=== PATIENT | female | born 1940 | race Caucasian/White ===

== ENCOUNTER 2019-07-26 12:40 | Emergency (ER) | payer OTHER ==
--- NOTE | 2019-07-26 12:51 | PDOC ---
History of Present Illness - General Chief Complaint: Injury Stated Complaint: BACK PAIN Time Seen by Provider: 07/26/19 12:51 History Source: Patient Exam Limitations: Other (very poor historian) - History of Present Illness Initial Comments: Pt is a 79 yo F, with PMH of HTN, HLD, anemia, IDDM, hypothyroidism, and nephrolithiasis, who is presenting with complaints of R-sided pain and frequent falls. Pt states she has been tripping over the uneven steps in her home for 3 months, and has subsequently had pain in the R side of her abdomen, her back, and down her R leg. Pt states over the past 1.5 weeks, she has had polyuria, dysuria, and constipation, and has been taking Azo pills OTC with minimal relief. Pt states she has also been non-compliant with most of her medication, including her insulin, during this time. Pt denies any fevers/chills, headache, vision changes, syncope, chest pain, palpitations, SOB, nausea/vomiting, diarrhea, numbness/weakness in her extremities, or leg swelling. BGM done by EMS was in the 400s Recent colonoscopy done in June and "everything was good," per pt. Allergies: NKDA PCP: Dr. Nash Kendrick/[facility]: Dr. Bello Social: Pt denies any cigarette, alcohol, or drug use. Pt denies any recent travel or sick contacts. Surgical: no relevant history. Family: no relevant history. 07/26/19 13:30 07/26/19 13:36 07/26/19 13:42 Past History - Travel Traveled outside of the country in the last 30 days: No Close contact w/someone who was outside of country & ill: No - Past Medical History Allergies/Adverse Reactions: Allergies Allergy/AdvReac Type Severity Reaction Status Date / Time azithromycin [From Azasite] Allergy Verified 09/04/16 11:51 Penicillins Allergy passes out Verified 09/04/16 11:51 phenylephrine Allergy Verified 09/04/16 11:51 LOTEMAX Allergy Uncoded 09/04/16 11:51 NEOSYNEPH Allergy Uncoded 09/04/16 11:51 Home Medications: Ambulatory Orders Dicyclomine HCl [Bentyl -] 20 mg PO Q6H 07/26/19 Duloxetine HCl 30 mg PO DAILY 07/26/19 Esomeprazole Magnesium 40 mg PO DAILY 07/26/19 Ezetimibe [Zetia] 10 mg PO DAILY 07/26/19 Levothyroxine [Synthroid -] 75 mcg PO DAILY 07/26/19 Linagliptin/Metformin HCl [Jentadueto 2.5 mg-1000 mg Tab] 1 each PO BID Losartan/Hydrochlorothiazide [Losartan-Hctz 100-25 mg Tab] 1 each PO DAILY 07/26 Ondansetron HCl [Zofran] 4 mg PO QID 07/26/19 Oxybutynin Chloride [Oxybutynin Chloride ER] 10 mg PO DAILY 07/26/19 Pregabalin [Lyrica] 25 mg PO DAILY 07/26/19 Anemia: Yes Asthma: No Cancer: No Cardiac Disorders: No CVA: No COPD: No CHF: No Dementia: No Diabetes: Yes GI Disorders: No Disorders: No HTN: Yes Hypercholesterolemia: Yes Liver Disease: No Seizures: No Thyroid Disease: Yes (HYPO) - Surgical History Abdominal Surgery: No Appendectomy: No Cardiac Surgery: No Cholecystectomy: No Lung Surgery: No Neurologic Surgery: No Orthopedic Surgery: Yes (TENDON OPERATION Bilateral Hands) - Suicide/Smoking/Psychosocial Hx Smoking Status: No Smoking History: Never smoked Have you smoked in the past 12 months: No Number of Cigarettes Smoked Daily: 0 Hx Alcohol Use: No Drug/Substance Use Hx: No Substance Use Type: None Hx Substance Use Treatment: No Review of Systems - Review of Systems Able to Perform ROS?: Yes Is the patient limited Bulgarian proficient: No Constitutional: Yes: Weight Stable. No: Chills, Diaphoresis, Fever, Loss of Appetite, Malaise, Weakness HEENTM: No: Blurred Vision, Recent change in vision, Nose Congestion, Throat Pain, Throat Swelling, Difficulty Swallowing Respiratory: No: Cough, Orthopnea, Shortness of Breath Cardiac (ROS): No: Chest Pain, Edema, Irregular Heart Rate, Lightheadedness, Palpitations, Syncope, Chest Tightness ABD/GI: Yes: See HPI, Constipated. No: Diarrhea, Nausea, Poor Appetite, Poor Fluid Intake, Vomiting, Indigestion : Yes: See HPI, Burning, Dysuria, Frequency. No: Discharge, Flank Pain, Hematuria, Pain, Urgency Musculoskeletal: Yes: Back Pain, Joint Pain. No: Muscle Pain, Muscle Weakness, Neck Pain Integumentary: No: Rash Neurological: Yes: Unsteady Gait. No: Headache, Numbness, Paresthesia, Weakness , Dizziness Psychiatric: No: Sleep Pattern Change, Change in Appetite Endocrine: Yes: Increased Urine. No: Change in Weight Hematologic/Lymphatic: Yes: Anemia. No: Blood Clots, Easy Bleeding, Easy Bruising All Other Systems: Reviewed and Negative *Physical Exam - Physical Exam Comments: HTN, bedside BGM 420s, pt afebrile. Pt in NAD, can lie and move in the bed. Normal body habitus. Pt alert and oriented x3. clinical team manager generally intact, muscular strength and sensation intact. Cerebellar exam WNL. Cervical midline spinal tenderness, and paraspinal TTP in thoracolumbar regions. No step-offs or crepitus. TTP over R hip and thigh, with no obvious deformity or shortening of the leg. Head normocephalic, atraumatic. Eyes PERRLA, EOMI. Oropharynx without erythema or exudates, no LAD b/l. No nasal congestion, hearing intact. Clear heart sounds, S1/S2, no JVD, b/l pedal edema, or heart murmur. Clear lung sounds, no respiratory distress, wheezes, crackles, or accessory muscle use. RUQ TTP. No CVA tenderness to palpation, no rebound, no guarding. Abdomen soft, non-distended, and with normoactive bowel sounds. Skin without jaundice or rash. 07/26/19 13:44 ED Treatment Course - LABORATORY CBC & Chemistry Diagram: 07/26/19 13:29 07/26/19 13:29 Medical Decision Making - Medical Decision Making Pt was seen at bedside, also will be seen by attending Dr. Mae. Pt presenting with a variety of complaints, recent falls and non-compliance with medications. BGM elevated to 400s. Will evaluate for DKA vs fractures from falls , other electrolyte imbalances, ACS, infection (UTI). Will obtain x-rays and CT head, C-spine. Provided 4 units IV insulin, 1 L IV NS, 1 g IV ofirmev, and lidocaine patch for improvement of hyperglycemia, dehydration, and pain. Will continue to reassess pt and monitor for symptomatic improvement. ECG: "unusual P axis, possible ectopic rhythm" (HR 67, GA 112, QRS 76, QTc 433) . TWIs/biphasic T waves V2-V6; p wave inversions in inferior leads, depressions in aVR and AVL. No prior ECG for comparison. 07/26/19 13:47 CBC WNL CMP: elevated glucose, no AG, acetone negative UA pending Ordered non-contrast abd/pelvis CT, as LFTs not elevated to suggest need for RUQ US 07/26/19 14:29 UA negative for infection Pt taken for imaging. 07/26/19 15:24 CT head and C-spine without acute pathology CT abd/pelvis: IMPRESSION: 1. Bilateral renal cysts with no evidence of urinary tract calculi or obstructive uropathy. 2. No acute pathology within the abdomen or pelvis. Limited study as described above. 07/26/19 16:37 X-rays with no acute pathology. BGM improved to 200s. Pt to be discharged to home with PCP f/u. Instructed pt to continue taking her medications. Strict return precautions provided with pt understanding. 07/26/19 17:29 *DC/Admit/Observation/Transfer Diagnosis at time of Disposition: Frequent falls, Non-compliance, Diabetes mellitus, insulin dependent (IDDM), uncontrolled - Discharge Dispostion Disposition: HOME Condition at time of disposition: Improved Decision to Admit order: No - Referrals Referrals: Nash Kendrick MD [Staff Physician] - - Patient Instructions Printed Discharge Instructions: How to Prevent Falls, DI for Hyperglycemia -- Adult Additional Instructions: You were seen in the ER today for falls and your blood sugar being too high. The results of your labs and imaging today showed high blood sugar, but your x- rays and CT scans were normal. Please follow-up with your primary care doctor within 1-2 days to discuss your visit and make sure your symptoms have improved. It is very important that you continue to take your home medications as prescribed. Please return to the ER if you have any worsening pain, development of fevers or chills, loss of consciousness, inability to tolerate food or fluids, or any other concerns. You can take tylenol every 4-6 hours as needed for pain. Please remove the lidocaine patch within 8 hours. - Post Discharge Activity
[2019-07-26] MEDS ORDERED: ACETAMINOPHEN 1000 MG/100 ML VIAL (NON FORMULARY) IVPB ONE (12:56)
[2019-07-26 12:58] VITALS: BMI 24.2
[2019-07-26] MEDS ORDERED: SODIUM CHLORIDE 1,000 ML IV STA (12:59)
[2019-07-26] MEDS ORDERED: ACETAMINOPHEN INJECTION 100 ML IVPB ONE (13:03)
--- NOTE | 2019-07-26 13:03 | PDOC ---
Attending Attestation - Resident Resident Name: Jayla Gregg - ED Attending Attestation I have performed the following: I have examined & evaluated the patient, The case was reviewed & discussed with the resident, I agree w/resident's findings & plan, Exceptions are as noted - HPI HPI: 79 yo F history HTN, HL, anemia, DM, hypothyroid, nephrolithiasis presents with R back and thigh pain, multiple falls. She has history of lumbar radiculopathy, but does not adhere to her Lyrica (also does not take her meds for DM and HTN reliably). She states she has been having abdominal pain and constipation for the past 3 months, and has been having back and thigh pain for at least 7 months. Denies fever, chills, vomiting, diarrhea. +Nausea. - Physicial Exam PE: GENERAL: Awake, alert, and fully oriented, in no acute distress HEAD: No signs of trauma EYES: PERRLA, EOMI, sclera anicteric, conjunctiva clear ENT: Auricles normal inspection, hearing grossly normal, nares patent, oropharynx clear without exudates. Moist mucosa NECK: Normal ROM, supple, no lymphadenopathy, JVD, or masses LUNGS: Breath sounds equal, clear to auscultation bilaterally. No wheezes, and no crackles HEART: Regular rate and rhythm, normal S1 and S2, no murmurs, rubs or gallops ABDOMEN: Soft, diffusely tender, normoactive bowel sounds. No guarding, no rebound. No masses EXTREMITIES: Normal range of motion, no edema. No clubbing or cyanosis. No cords, erythema, or tenderness NEUROLOGICAL: Cranial nerves II through XII grossly intact. Normal speech. Motor and sensation intact SKIN: Warm, dry, normal turgor, no rashes or lesions noted. - Medical Decision Making Pt with multiple chronic complaints (abd pain and back pain/radiculopathy), has been having falls recently. Will obtain CTH and c-spine due to falls, as well as XR of R femur, hip/pelvis. Will obtain CT a/p in light of abdominal tenderness (however, as the pain is chronic and she is non-adherent to her DM treatment, it is likely she has a component of gastroparesis).
[2019-07-26] MEDS ORDERED: INSULIN REGULAR HUMAN 100 UNITS/ML *VIAL IVPUSH ONE (13:32)
[2019-07-26] MEDS ORDERED: LIDOCAINE 5% TOPICAL PATCH TP ONE (13:34)
[2019-07-26] MEDS ORDERED: LOSARTAN 50MG/HCTZ 12.5MG 1 TAB (FP) PO ONE (13:34)
[2019-07-26 13:45] LABS: EOS % 0.6 % (0-4.5); HEMATOCRIT 40.5 % (32.4-45.2); HEMOGLOBIN 13.6 GM/dL (10.7-15.3); LYMPH % 29.3 % (8-40); MCH 30.8 pg (25.7-33.7); MCHC 33.7 g/dl (32.0-36.0); MEAN CELL VOLUME 91.5 fl (80-96); MEAN PLT VOLUME 10.1 fl (7.5-11.1); MONO % 7.3 % (3.8-10.2); NEUT % 61.8 % (42.8-82.8); PLATELET COUNT 229 K/MM3 (134-434); RBC 4.43 M/mm3 (3.60-5.2); RDW 14.8 % (11.6-15.6)
[2019-07-26 14:04] LABS: INR 0.93 (0.83-1.09)
[2019-07-26] MEDS ORDERED: LIDOCAINE 5% TOPICAL PATCH ONE (14:05)
[2019-07-26 14:11] LABS: BILIRUBIN,TOTAL 0.6 mg/dL (0.2-1); BLOOD UREA NITROGEN 13.2 mg/dL (7-18); CALCIUM 9.6 mg/dL (8.5-10.1); POTASSIUM 4.2 mmol/L (3.5-5.1); TOT PROT 7.1 g/dl (6.4-8.2)
[2019-07-26 14:38] LABS: URINE APPEARANCE Clear; URINE BILIRUBIN Negative (NEGATIVE); URINE COLOR Yellow; URINE GLUCOSE (UA) 2+ (NEGATIVE); URINE KETONE Negative (NEGATIVE); URINE LEUK ESTERASE Negative (NEGATIVE); URINE NITRITE Negative (NEGATIVE); URINE PROTEIN Negative (NEGATIVE); URINE UROBILINOGEN 0.2 mg/dL (0.2-1.0)
[2019-07-26] MEDS ORDERED: HYDROCHLOROTHIAZIDE 25 MG TABLET (FP) PO ONE (14:45)
[2019-07-26] MEDS ORDERED: LOSARTAN POTASSIUM 50 MG TABLET (FP) PO ONE (14:45)
[2019-07-26] MEDS ORDERED: HYDROCHLOROTHIAZIDE 25 MG TABLET (FP) ONE (14:51)
[2019-07-26] MEDS ORDERED: LOSARTAN POTASSIUM 50 MG TABLET (FP) ONE (14:52)
[2019-07-26 17:34] VITALS: BP 178/98; PULSE 61; TEMP 98
[2019-07-26] MEDS ORDERED: LIDOCAINE PATCH REMOVAL MC SCH (22:00)
--- NOTE | 2019-07-27 16:55 | EKG ---
Test Reason : Blood Pressure : / mmHG Vent. Rate : 067 BPM Atrial Rate : 067 BPM P-R Int : 112 ms QRS Dur : 076 ms QT Int : 410 ms P-R-T Axes : -60 006 140 degrees QTc Int : 433 ms UNUSUAL P AXIS, POSSIBLE ECTOPIC ATRIAL RHYTHM T WAVE ABNORMALITY, CONSIDER ANTEROLATERAL ISCHEMIA ABNORMAL ECG WHEN COMPARED WITH ECG OF 04-SEP-2016 11:53, ECTOPIC ATRIAL RHYTHM HAS REPLACED SINUS RHYTHM T WAVE INVERSION NOW EVIDENT IN ANTERIOR LEADS Confirmed by KALEE PAL MD ([id number]) on 07/27/2019 4:54:46 PM Referred By: Confirmed By:KALEE PAL MD
== END 2019-07-26 17:45 | disposition home or self-care (01) ==
LOC: JER 12:40
PROC: 3E0337Z Introduction of Electrolytic and Water Balance Substance into Peripheral Vein, Percutaneous Approach (ICD-10-PCS; principal; 2019-07-26)
PROC: 3E033NZ Introduction of Analgesics, Hypnotics, Sedatives into Peripheral Vein, Percutaneous Approach (ICD-10-PCS; 2019-07-26)
PROC: 3E033VG Introduction of Insulin into Peripheral Vein, Percutaneous Approach (ICD-10-PCS; 2019-07-26)
DX: E11.65 Type 2 diabetes mellitus with hyperglycemia (principal); Z79.4 Long term (current) use of insulin; Z91.14 Patient's other noncompliance with medication regimen; R29.6 Repeated falls
CPT/HCPCS: 36415; 70450-TC; 71045-TC-FY; 72125-TC; 73523-TC-FY; 73552-TC-RT-FY; 74176-TC; 80053; 81003; 82009; 82550; 82962; 84484; 85025; 85610; 93005; 93010; 96361; 96374; 96375; 99284-25; J0131; J7030

== ENCOUNTER 2019-08-26 16:42 | Inpatient (IN) | payer OTHER ==
--- NOTE | 2019-08-26 16:54 | PDOC ---
Rapid Medical Evaluation Time Seen by Provider: 08/26/19 16:50 Medical Evaluation: Allergies Allergy/AdvReac Type Severity Reaction Status Date / Time azithromycin [From Azasite] Allergy Verified 09/04/16 11:51 Penicillins Allergy passes out Verified 09/04/16 11:51 phenylephrine Allergy Verified 09/04/16 11:51 LOTEMAX Allergy Uncoded 09/04/16 11:51 NEOSYNEPH Allergy Uncoded 09/04/16 11:51 08/26/19 16:50 79-year-old female with IDDM, hypothyroidism sent by PCP with abnormal labs including TSH 91. C/o weakness, fatigue, right-sided back pain x 6 months. Was given insulin in office by PCP (on labs glucose 433). Alert, no distress. Slow to respond but oriented. Irregular rhythm, S1/S2. Lungs CTAB. Patient has full set of labs from today with her. I have also ordered EKG, CXR. Patient to proceed to main ED for further evaluation. 08/26/19 16:54 Discharge Disposition - Diagnosis Weakness - Referrals - Patient Instructions - Post Discharge Activity
--- NOTE | 2019-08-26 19:17 | PDOC ---
History of Present Illness - General Chief Complaint: Abnormal Lab Results (Outside) Stated Complaint: CHEST PAIN Time Seen by Provider: 08/26/19 16:50 - History of Present Illness Initial Comments: The pt is a 79F w/ a history HTN, HLD, T2DM, and hypothyroidism who presents for evaluation of an elevated TSH, elevated blood pressure, and elevated BG. The pt states she was seen at her PCP's office yesterday where these tests were performed. She denies any acute onset symptoms today. She has not taken her medication today. She endorses chronic abdominal pain, gastritis, intermittent vomiting, and back pain. She recently had an EGD which showed non-erosive gastritis and a small hiatal hernia She endorses dry hair, skin, and lethargy 08/26/19 19:16 Past History - Past Medical History Allergies/Adverse Reactions: Allergies Allergy/AdvReac Type Severity Reaction Status Date / Time azithromycin [From Azasite] Allergy Verified 09/04/16 11:51 Penicillins Allergy passes out Verified 09/04/16 11:51 phenylephrine Allergy Verified 09/04/16 11:51 LOTEMAX Allergy Uncoded 09/04/16 11:51 NEOSYNEPH Allergy Uncoded 09/04/16 11:51 Home Medications: Ambulatory Orders Levothyroxine [Synthroid -] 75 mcg PO DAILY 07/26/19 Linagliptin/Metformin HCl [Jentadueto 2.5 mg-1000 mg Tab] 1 each PO BID Losartan/Hydrochlorothiazide [Losartan-Hctz 100-25 mg Tab] 1 each PO DAILY 07/26 Clarithromycin 500 mg PO Q12H 08/26/19 Ibuprofen 600 mg PO Q6H 08/26/19 Metoclopramide HCl 5 mg PO BID 08/26/19 Metronidazole 500 mg PO Q12H 08/26/19 Anemia: Yes Asthma: No Cancer: No Cardiac Disorders: No CVA: No COPD: No CHF: No Dementia: No Diabetes: Yes GI Disorders: No Disorders: No HTN: Yes Hypercholesterolemia: Yes Liver Disease: No Seizures: No Thyroid Disease: Yes (HYPO) - Surgical History Abdominal Surgery: No Appendectomy: No Cardiac Surgery: No Cholecystectomy: No Lung Surgery: No Neurologic Surgery: No Orthopedic Surgery: Yes (TENDON OPERATION Bilateral Hands) - Immunization History Immunization Up to Date: No - Psycho Social/Smoking Cessation Hx Smoking Status: No Smoking History: Never smoked Have you smoked in the past 12 months: No Number of Cigarettes Smoked Daily: 0 Information on smoking cessation initiated: No Hx Alcohol Use: No Drug/Substance Use Hx: No Substance Use Type: None Hx Substance Use Treatment: No Review of Systems - Review of Systems Able to Perform ROS?: Yes Comments:: GENERAL/CONSTITUTIONAL: +malaise; No fever or chills. HEAD, EYES, EARS, NOSE AND THROAT: No change in vision. No change in hearing. No sore throat CARDIOVASCULAR: No chest pain RESPIRATORY: Denies cough, hemoptysis GASTROINTESTINAL: No nausea, vomiting, diarrhea or constipation GENITOURINARY: +dysuria, on flagyl and clarithromycin MUSCULOSKELETAL: No joint or muscle swelling or pain. No neck or back pain SKIN: No rash NEUROLOGIC: No headache, vertigo, loss of consciousness, or change in strength/ sensation HEMATOLOGIC/LYMPHATIC: No anemia, easy bleeding, or history of blood clots ALLERGIC/IMMUNOLOGIC: No hives or skin allergy 08/26/19 19:16 Is the patient limited Citizen Of [place] proficient: No *Physical Exam - Vital Signs Last Vital Signs Temp Pulse Resp BP Pulse Ox 97.6 F 52 L 16 124/78 99 08/26/19 16:50 08/26/19 16:50 08/26/19 16:50 08/26/19 16:50 08/26/19 16:50 - Physical Exam Comments: GENERAL: Awake, alert, and oriented to person/place/time, flat affect HEAD: No signs of trauma, normocephalic, atraumatic EYES: PERRLA, EOMI, sclera anicteric, conjunctiva clear ENT: Hearing grossly normal, nares patent, oropharynx clear without exudates. Moist mucosa LUNGS: No distress, speaks in full sentences, clear to auscultation bilaterally HEART: Regular rate and rhythm, normal S1 and S2, no murmurs appreciated, peripheral pulses normal and equal bilaterally ABDOMEN: Soft, nontender, normoactive bowel sounds. No guarding, no rebound EXTREMITIES: Normal inspection, Normal range of motion, no edema. No clubbing or cyanosis NEUROLOGICAL: Cranial nerves II through XII grossly intact. Normal speech, no focal sensorimotor deficits SKIN: Warm, Dry 08/26/19 19:16 ED Treatment Course - LABORATORY CBC & Chemistry Diagram: 08/26/19 20:17 08/26/19 20:17 - ADDITIONAL ORDERS Additional order review: Laboratory Results 08/26/19 18:00 POC Glucometer 413 08/26/19 18:00 POC Glucometer 413 Medical Decision Making - Medical Decision Making The pt is a 79F w/ a history HTN, HLD, T2DM, and hypothyroidism who presents for evaluation of an elevated TSH, elevated blood pressure, and elevated BG. ED Course CMP, CBC, TSH, free T4, beta-hydroxybutyrate UA CXR ECG 08/26/19 19:51 ECG w/ HR 72; TWI in I, II, V3-6; No KIRAN; intermittent PVCs No leukocytosis No anemia Lytes unremarkable Trop I neg TSH elevated B-hydroxybutyrate wnl TSH 95 -Pt's home synthroid 75mcg PO once given here, pt did not take home dose today 08/27/19 01:56 Plan for admission for mgmt of hyperglycemia and elevated TSH Case discussed w/ Dr. Regalado and admitted to med/surg Discharge - Discharge Information Problems reviewed: Yes Clinical Impression/Diagnosis: Weakness Hypothyroidism Qualifiers: Hypothyroidism type: unspecified Qualified Code(s): E03.9 - Hypothyroidism, unspecified Hypertension Qualifiers: Hypertension type: unspecified Qualified Code(s): I10 - Essential (primary) hypertension Condition: Stable - Admission Yes - Follow up/Referral - Patient Discharge Instructions - Post Discharge Activity
[2019-08-26 20:40] LABS: BASO % 0.8 % (0-2.0); EOS % 0.3 % (0-4.5); HEMOGLOBIN 13.6 GM/dL (10.7-15.3); LYMPH % 39.9 % (8-40); MCH 31.2 pg (25.7-33.7); MCHC 33.2 g/dl (32.0-36.0); MEAN PLT VOLUME 10.7 fl (7.5-11.1); MONO % 6.1 % (3.8-10.2); NEUT % 52.9 % (42.8-82.8); PLATELET COUNT 207 K/MM3 (134-434); RBC 4.36 M/mm3 (3.60-5.2); WHITE BLOOD COUNT 3.8 K/mm3 (4.0-10.0)
[2019-08-26] MEDS ORDERED: SODIUM CHLORIDE 0.9% 500 ML INFUS.BAG IV ONE (20:46)
[2019-08-26 21:17] LABS: ALBUMIN 3.8 g/dl (3.4-5.0); ALK PHOS 122 U/L (45-117); BILIRUBIN,TOTAL 0.6 mg/dL (0.2-1); BLOOD UREA NITROGEN 18.2 mg/dL (7-18); CALCIUM 9.4 mg/dL (8.5-10.1); CHLORIDE 93 mmol/L (98-107); CO2 32 mmol/L (21-32); CREATININE 1.3 mg/dL (0.55-1.3); PHOSPHOROUS 3.1 mg/dL (2.5-4.9); SGPT/ALT 228 U/L (13-61); SODIUM 134 mmol/L (136-145); TOT PROT 7.2 g/dl (6.4-8.2)
[2019-08-26 21:18] LABS: ANION GAP 9 MMOL/L (8-16); MAGNESIUM 2.1 mg/dL (1.8-2.4); POTASSIUM 4.9 mmol/L (3.5-5.1); SGOT/AST 114 U/L (15-37)
[2019-08-26 21:19] LABS: GLUCOSE,RANDOM 412 mg/dL (74-106)
[2019-08-26] MEDS ORDERED: LEVOTHYROXINE NA 75 MCG TABLET (FP) PO ONE (21:19)
[2019-08-26] MEDS ORDERED: LEVOTHYROXINE NA 25 MCG TABLET (FP) ONE (21:42)
--- NOTE | 2019-08-26 22:09 | PDOC ---
Documentation entered by Carolyn Arce SCRIBE, acting as scribe for Josey Matthews DO. Josey Matthews DO: This documentation has been prepared by the Yazmin irizarry Adrianna, SCRIBE, under my direction and personally reviewed by me in its entirety. I confirm that the documentation accurately reflects all work, treatment, procedures, and medical decision making performed by me. Attending Attestation - Resident Resident Name: GeovannysatyaMareKings - ED Attending Attestation I have performed the following: I have examined & evaluated the patient, The case was reviewed & discussed with the resident, I agree w/resident's findings & plan - HPI HPI: The patient is a 79 year old female, with a PMH of HTN, HLD, anemia, IDDM, hypothyroidism, and nephrolithiasis, who presents for evaluation of abnormal lab values. Patient was seen by her PCP yesterday, and was found to have a blood sugar of 457 and TSH of 91. Allergies: Azithromycin, penicillins, phenylephrine, lotemax, neosyneph Social History: Denies EtOH, tobacco, or illicit drug use Surgical History: tendon repair, bilateral hands PCP: Dr. Nash Kendrick Urology: Dr. Bello - Physicial Exam PE: Agree with resident exam. - Medical Decision Making 08/26/19 22:06 79 yo female with poorly controlled DM, htn and hypothyroidism sent to ED for admit by PCP
[2019-08-26 22:23] LABS: VENOUS PC02 51.5 mmHg (38-52)
[2019-08-26 22:31] LABS: VENOUS PO2 < 49 mmHg (28-48)
[2019-08-26] MEDS ORDERED: INSULIN (NOVOLOG) ASPART 100 UNITS/ML 10ML VIAL ONE (22:40)
[2019-08-26] MEDS: INSULIN SLIDING SCALE (NOVOLOG) 1 VIAL SQ SCH (22:56)
[2019-08-26] MEDS: SODIUM CHLORIDE 0.45% 1,000 ML IV SCH (22:56)
[2019-08-26] MEDS: HEPARIN NA (PORCINE) 5,000 UNITS/ML 1ML VIAL SQ SCH (22:57)
[2019-08-27 01:48] LABS: HYALINE CASTS 0 /lpf (0-8); URINE APPEARANCE CLEAR; URINE BACTERIA 30.2 /hpf (NEGATIVE); URINE BILIRUBIN NEGATIVE (NEGATIVE); URINE COLOR YELLOW; URINE GLUCOSE (UA) 1+ (NEGATIVE); URINE KETONE NEGATIVE (NEGATIVE); URINE LEUK ESTERASE 2+ (NEGATIVE); URINE NITRITE NEGATIVE (NEGATIVE); URINE PROTEIN NEGATIVE (NEGATIVE); URINE RBC 1 /hpf (0-4); URINE UROBILINOGEN 0.2 mg/dL (0.2-1.0); URINE WBC 7 /hpf (0-5)
[2019-08-27] MEDS ORDERED: LEVOTHYROXINE NA 75 MCG TABLET (FP) PO SCH (07:00)
[2019-08-27] MEDS: metFORMIN HCL 500 MG TABLET (FP) PO SCH ×2 (08:23→17:53)
[2019-08-27] MEDS: INSULIN SLIDING SCALE (NOVOLOG) 1 VIAL SQ SCH ×4 (09:00→21:56)
[2019-08-27] MEDS: LOSARTAN POTASSIUM 50 MG TABLET (FP) PO SCH (09:19)
[2019-08-27] MEDS: HYDROCHLOROTHIAZIDE 25 MG TABLET (FP) PO SCH (09:19)
[2019-08-27] MEDS ORDERED: PATIENT'S OWN MEDICATION (NON-FORMULARY) (Losartan/Hydrochlorothiazide [Losartan-Hctz 100- PO SCH (10:00)
--- NOTE | 2019-08-27 12:11 | CON.GI ---
Consult Consult Specialty:: Gastroenterology Referred by:: Emergency Department Reason for Consultation:: Elevated liver chemistries and abdominal pain - History of Present Illness Chief Complaint: Abdominal pain History of Present Illness: Patient and daughter report that patient has had 6 months of abdominal pain, right sided, with some radiation of pain to flank and back. Some decrease in appetite/PO intake during this time without appreciable weight loss. Was sent in to ED due to multiple lab abnormalities including elevated TSH. Patient also reports fatigue. Has had some work up in recent past for the abdominal complaints including CT scan of abdomen and pelvis at [facility] visit in July (no specific GI abnormalities noted); EGD at [facility] last month with gastritis and hiatal hernia, otherwise normal. US of abdomen/liver yesterday without gallstones, GB wall thickening, or pericholecystic fluid. CBD of 9.5 mm. Lab studies with elevated AST and ALT (114/228), slightly elevated alkalkine phosphatase of 122. Normal bilirubin of 0.6. No anemia. - Past Medical History Cardio/Vascular: Yes: CAD (stents), CHF, HTN, Hyperlipdemia Pulmonary: Yes: Bronchitis. No: Cancer, O2 Dependent Endocrine: Yes: Diabetes Mellitus (type 2), Hypothyroidism - Past Surgical History Past Surgical History: Yes: - Alcohol/Substance Use Hx Alcohol Use: No History of Substance Use: reports: None - Smoking History Smoking history: Never smoked Have you smoked in the past 12 months: No Aproximately how many cigarettes per day: 0 - Social History ADL: Independent History of Recent Travel: No Home Medications - Allergies Allergies/Adverse Reactions: Allergies Allergy/AdvReac Type Severity Reaction Status Date / Time azithromycin [From Azasite] Allergy Verified 09/04/16 11:51 Penicillins Allergy passes out Verified 09/04/16 11:51 phenylephrine Allergy Verified 09/04/16 11:51 LOTEMAX Allergy Uncoded 09/04/16 11:51 NEOSYNEPH Allergy Uncoded 09/04/16 11:51 - Home Medications Home Medications: Ambulatory Orders Levothyroxine [Synthroid -] 75 mcg PO DAILY 07/26/19 Linagliptin/Metformin HCl [Jentadueto 2.5 mg-1000 mg Tab] 1 each PO BID Losartan/Hydrochlorothiazide [Losartan-Hctz 100-25 mg Tab] 1 each PO DAILY 07/26 Clarithromycin 500 mg PO Q12H 08/26/19 Ibuprofen 600 mg PO Q6H 08/26/19 Metoclopramide HCl 5 mg PO BID 08/26/19 Metronidazole 500 mg PO Q12H 08/26/19 Review of Systems - Review of Systems Gastrointestinal: reports: Abdominal Pain (RUQ with radiation to back.). denies : Constipation, Diarrhea, Dysphagia, Nausea, Rectal Bleeding Physical Exam-GI Vital Signs: Vital Signs Temperature 97.6 F 08/26/19 16:50 Pulse Rate 73 08/27/19 10:29 Respiratory Rate 20 08/27/19 10:29 Blood Pressure 143/86 08/27/19 10:29 O2 Sat by Pulse Oximetry (%) 100 08/27/19 10:29 Constitutional: Yes: Well Nourished, No Distress, Calm ...Auscultate: Yes: Normoactive Bowel Sounds ...Palpate: Yes: Soft. No: Hepatomegaly, Mass, Splenomegaly, Tenderness Labs: CBC, BMP 08/26/19 20:17 08/26/19 20:17 Imaging - Results Cat Scan: Report Reviewed Ultrasound: Report Reviewed Assessment/Plan Abdominal pain of uncertain etiology with elevated AST, ALT and mild elevation of alkaline phosphatase with 9.5 mm CBD on US with recent normal CT in setting of fatigue, elevated TSH/hypothyroidism. Suggest: MRCP Follow liver chemistries Would check: Hep C Ab, Heb B studies (sAg, sAb, cAb, eAg, eAb), SOCORRO, smooth muscle antibody, ferritin
[2019-08-27 12:12] LABS: EOS % 0.4 % (0-4.5); HEMATOCRIT 41.2 % (32.4-45.2); LYMPH % 35.2 % (8-40); MCH 31.1 pg (25.7-33.7); MCHC 33.9 g/dl (32.0-36.0); MEAN CELL VOLUME 91.6 fl (80-96); MEAN PLT VOLUME 9.7 fl (7.5-11.1); MONO % 7.5 % (3.8-10.2); NEUT % 55.9 % (42.8-82.8); PLATELET COUNT 197 K/MM3 (134-434); RBC 4.49 M/mm3 (3.60-5.2); RDW 14.9 % (11.6-15.6); WHITE BLOOD COUNT 3.8 K/mm3 (4.0-10.0)
[2019-08-27 12:44] LABS: ALBUMIN 3.7 g/dl (3.4-5.0); BILIRUBIN,TOTAL 0.5 mg/dL (0.2-1); BLOOD UREA NITROGEN 13.1 mg/dL (7-18); CALCIUM 9.3 mg/dL (8.5-10.1); POTASSIUM 3.5 mmol/L (3.5-5.1); TOT PROT 6.6 g/dl (6.4-8.2)
--- NOTE | 2019-08-27 12:55 | EKG ---
Test Reason : Blood Pressure : / mmHG Vent. Rate : 072 BPM Atrial Rate : 072 BPM P-R Int : 116 ms QRS Dur : 072 ms QT Int : 414 ms P-R-T Axes : -71 005 172 degrees QTc Int : 453 ms ECTOPIC ATRIAL RHYTHM WITH FREQUENT PREMATURE VENTRICULAR COMPLEXES ABNORMAL ECG Confirmed by RICKEY UREÑA, MISAEL ([id number]) on 08/27/2019 12:55:21 PM Referred By: Confirmed By:MISAEL LANG MD
[2019-08-27] MEDS ORDERED: INSULIN (NOVOLOG) ASPART 100 UNITS/ML 10ML VIAL ONE ×2 (12:56→20:49)
[2019-08-27] MEDS: HEPARIN NA (PORCINE) 5,000 UNITS/ML 1ML VIAL SQ SCH ×2 (13:00→21:56)
[2019-08-27] MEDS ORDERED: FLU VACCINE QUAD 60 MCG/0.5 ML (MDV 19-20) IM ONE (14:31)
[2019-08-27] MEDS ORDERED: PT OWN MED DRAWER 7, Y5N ONE (14:43)
[2019-08-27] MEDS: SODIUM CHLORIDE 0.45% 1,000 ML IV SCH (15:46)
[2019-08-27 18:52] VITALS: BMI 22.1
--- NOTE | 2019-08-27 19:52 | HP ---
Admitting History and Physical - Past Medical History Cardiovascular: Yes: CAD (stents), CHF, HTN, Hyperlipdemia Pulmonary: Yes: Bronchitis. No: Cancer, O2 Dependent ...: No Endocrine: Yes: Diabetes Mellitus (type 2), Hypothyroidism - Past Surgical History Past Surgical History: Yes: - Smoking History Smoking history: Never smoked Have you smoked in the past 12 months: No Aproximately how many cigarettes per day: 0 - Alcohol/Substance Use Hx Alcohol Use: No History of Substance Use: reports: None - Social History ADL: Independent History of Recent Travel: No Home Medications - Allergies Allergies/Adverse Reactions: Allergies Allergy/AdvReac Type Severity Reaction Status Date / Time azithromycin [From Azasite] Allergy Verified 09/04/16 11:51 Penicillins Allergy passes out Verified 09/04/16 11:51 phenylephrine Allergy Verified 09/04/16 11:51 LOTEMAX Allergy Uncoded 09/04/16 11:51 NEOSYNEPH Allergy Uncoded 09/04/16 11:51 - Home Medications Home Medications: Ambulatory Orders Levothyroxine [Synthroid -] 75 mcg PO DAILY 07/26/19 Linagliptin/Metformin HCl [Jentadueto 2.5 mg-1000 mg Tab] 1 each PO BID Losartan/Hydrochlorothiazide [Losartan-Hctz 100-25 mg Tab] 1 each PO DAILY 07/26 Clarithromycin 500 mg PO Q12H 08/26/19 Ibuprofen 600 mg PO Q6H 08/26/19 Metoclopramide HCl 5 mg PO BID 08/26/19 Metronidazole 500 mg PO Q12H 08/26/19 Physical Examination Vital Signs: Vital Signs Temperature 98.1 F 08/27/19 18:00 Pulse Rate 75 08/27/19 18:00 Respiratory Rate 18 08/27/19 18:00 Blood Pressure 132/71 08/27/19 18:00 O2 Sat by Pulse Oximetry (%) 96 08/27/19 12:00 Labs: CBC, BMP 08/27/19 11:40 08/27/19 11:40
[2019-08-27] MEDS: ACETAMINOPHEN 325 MG TABLET (FP) PO PRN (21:57)
--- NOTE | 2019-08-27 23:52 | CONSULT ---
Consult Consult Specialty:: ENDOCRINE Referred by:: ZOEY FLOREZ MD. Reason for Consultation:: HYPOTHYROIDISM SEVERE - History of Present Illness Chief Complaint: WEAKNESS AND VOMITING History of Present Illness: 79F w/ a history Hypothyroidism,DMT2,HTN, HLD, who presented for weakness, extreme fatigue,nausea and vomiting, elevated blood pressure, and elevated Blood sugars,The pt states she was unable to keep food or liquids down,feeling confused and abdominal discomfort,denies cp cough fever or chills. - Past Medical History Cardio/Vascular: Yes: CAD (stents), CHF, HTN, Hyperlipdemia Pulmonary: Yes: Bronchitis. No: Cancer, O2 Dependent ...: No Endocrine: Yes: Diabetes Mellitus (type 2), Hypothyroidism - Past Surgical History Past Surgical History: Yes: - Alcohol/Substance Use Hx Alcohol Use: No History of Substance Use: reports: None - Smoking History Smoking history: Never smoked Have you smoked in the past 12 months: No Aproximately how many cigarettes per day: 0 - Social History ADL: Independent History of Recent Travel: No Home Medications - Allergies Allergies/Adverse Reactions: Allergies Allergy/AdvReac Type Severity Reaction Status Date / Time azithromycin [From Azasite] Allergy Verified 09/04/16 11:51 Penicillins Allergy passes out Verified 09/04/16 11:51 phenylephrine Allergy Verified 09/04/16 11:51 LOTEMAX Allergy Uncoded 09/04/16 11:51 NEOSYNEPH Allergy Uncoded 09/04/16 11:51 - Home Medications Home Medications: Ambulatory Orders Levothyroxine [Synthroid -] 75 mcg PO DAILY 07/26/19 Linagliptin/Metformin HCl [Jentadueto 2.5 mg-1000 mg Tab] 1 each PO BID Losartan/Hydrochlorothiazide [Losartan-Hctz 100-25 mg Tab] 1 each PO DAILY 07/26 Clarithromycin 500 mg PO Q12H 08/26/19 Ibuprofen 600 mg PO Q6H 08/26/19 Metoclopramide HCl 5 mg PO BID 08/26/19 Metronidazole 500 mg PO Q12H 08/26/19 Review of Systems - Review of Systems Constitutional: reports: Lethargy, Weakness Eyes: reports: No Symptoms HENT: reports: Difficult Swallowing, Throat Pain Neck: reports: No Symptoms Cardiovascular: reports: Shortness of Breath Respiratory: reports: Exercise Intolerance, SOB on Exertion Gastrointestinal: reports: Bloating, Constipation Genitourinary: reports: No Symptoms Breasts: reports: No Symptoms Reported Musculoskeletal: reports: Muscle Pain, Muscle Cramps Integumentary: reports: No Symptoms Neurological: reports: Numbness, Weakness Endocrine: reports: Unexplained Weight Loss Physical Exam Vital Signs: Vital Signs Temperature 97.9 F 08/27/19 22:00 Pulse Rate 70 08/27/19 22:00 Respiratory Rate 18 08/27/19 22:00 Blood Pressure 125/68 08/27/19 22:00 O2 Sat by Pulse Oximetry (%) 96 08/27/19 21:00 Constitutional: Yes: Calm Eyes: Yes: EOM Intact HENT: Yes: Normocephalic Neck: Yes: Trachea Midline Cardiovascular: Yes: Regular Rate and Rhythm Respiratory: Yes: CTA Bilaterally Gastrointestinal: Yes: Normal Bowel Sounds ...Rectal Exam: Yes: Deferred Musculoskeletal: Yes: Back Pain, Muscle Weakness Extremities: Yes: WNL Neurological: Yes: Alert, Lethargy, Numbness, Weakness Labs: CBC, BMP 08/27/19 11:40 08/27/19 11:40 Problem List - Problems (1) Hypertension Code(s): I10 - ESSENTIAL (PRIMARY) HYPERTENSION Qualifiers: Hypertension type: unspecified Qualified Code(s): I10 - Essential (primary ) hypertension (2) Hypothyroidism Code(s): E03.9 - HYPOTHYROIDISM, UNSPECIFIED Qualifiers: Hypothyroidism type: unspecified Qualified Code(s): E03.9 - Hypothyroidism , unspecified (3) Weakness Code(s): R53.1 - WEAKNESS (4) Costochondritis, acute Code(s): M94.0 - CHONDROCOSTAL JUNCTION SYNDROME [TIETZE] (5) Diabetes mellitus, insulin dependent (IDDM), uncontrolled Code(s): E11.65 - TYPE 2 DIABETES MELLITUS WITH HYPERGLYCEMIA; Z79.4 - PENITENTIARY (CURRENT) USE OF INSULIN (6) Frequent falls Code(s): R29.6 - REPEATED FALLS (7) Headache, tension type, episodic Code(s): G44.219 - EPISODIC TENSION-TYPE HEADACHE, NOT INTRACTABLE Assessment/Plan Current Active Problems Hypertension (Acute) Hypothyroidism (Acute) Weakness (Acute) nausea and vomiting T2dm uncontrolled Abnormal Lab Results 08/27/19 08/27/19 08/27/19 00:46 11:40 11:40 WBC 3.8 L Random Glucose 256 H AST 56 H ALT 175 H Ur Specific Mustang 1.005 L Urine Glucose (UA) 1+ H Ur Leukocyte Esterase 2+ H Laboratory Results - last 24 hr 08/27/19 08/27/19 08/27/19 00:46 08:30 11:40 WBC 3.8 L RBC 4.49 Hgb 14.0 Hct 41.2 MCV 91.6 MCH 31.1 MCHC 33.9 RDW 14.9 Plt Count 197 MPV 9.7 Absolute Neuts (auto) 2.1 Neutrophils % 55.9 Lymphocytes % 35.2 Monocytes % 7.5 Eosinophils % 0.4 Basophils % 1.0 Nucleated RBC % 0 Sodium Potassium Chloride Carbon Dioxide Anion Gap BUN Creatinine Est GFR (CKD-EPI)AfAm Est GFR (CKD-EPI)NonAf POC Glucometer 227 Random Glucose Calcium Total Bilirubin AST ALT Alkaline Phosphatase Total Protein Albumin Urine Color Yellow Urine Appearance Clear Urine pH 8.0 Ur Specific Mustang 1.005 L Urine Protein Negative Urine Glucose (UA) 1+ H Urine Ketones Negative Urine Blood Negative Urine Nitrite Negative Urine Bilirubin Negative Urine Urobilinogen 0.2 Ur Leukocyte Esterase 2+ H Urine WBC (Auto) 7 Urine RBC (Auto) 1 Urine Casts (Auto) 0 U Epithel Cells (Auto) 3.0 Urine Bacteria (Auto) 30.2 08/27/19 08/27/19 08/27/19 11:40 12:27 17:13 WBC RBC Hgb Hct MCV MCH MCHC RDW Plt Count MPV Absolute Neuts (auto) Neutrophils % Lymphocytes % Monocytes % Eosinophils % Basophils % Nucleated RBC % Sodium 136 Potassium 3.5 Chloride 99 Carbon Dioxide 29 Anion Gap 9 BUN 13.1 Creatinine 1.0 Est GFR (CKD-EPI)AfAm 62.93 Est GFR (CKD-EPI)NonAf 54.30 POC Glucometer 268 215 Random Glucose 256 H Calcium 9.3 Total Bilirubin 0.5 AST 56 H ALT 175 H Alkaline Phosphatase 106 Total Protein 6.6 Albumin 3.7 Urine Color Urine Appearance Urine pH Ur Specific Mustang Urine Protein Urine Glucose (UA) Urine Ketones Urine Blood Urine Nitrite Urine Bilirubin Urine Urobilinogen Ur Leukocyte Esterase Urine WBC (Auto) Urine RBC (Auto) Urine Casts (Auto) U Epithel Cells (Auto) Urine Bacteria (Auto) Laboratory Tests 08/26/19 08/26/19 20:17 20:17 TSH 95.70 H Free T4 0.22 L plan: bgm qid novolog scale synthroid iv 25mcg daily gi consult avoid dpp4 while gi symptoms persist ck hba1c ck lipase hold metformin
[2019-08-28] MEDS: SODIUM CHLORIDE 0.45% 1,000 ML IV SCH (03:53)
[2019-08-28] MEDS: INSULIN SLIDING SCALE (NOVOLOG) 1 VIAL SQ SCH ×4 (06:11→21:16)
[2019-08-28] MEDS: HYDROCHLOROTHIAZIDE 25 MG TABLET (FP) PO SCH (10:08)
[2019-08-28] MEDS: LOSARTAN POTASSIUM 50 MG TABLET (FP) PO SCH (10:08)
[2019-08-28] MEDS: ACETAMINOPHEN 325 MG TABLET (FP) PO PRN (10:09)
[2019-08-28] MEDS: HEPARIN NA (PORCINE) 5,000 UNITS/ML 1ML VIAL SQ SCH ×2 (10:09→21:16)
[2019-08-28] MEDS ORDERED: PT OWN MED DRAWER 7, Y5N ONE (10:14)
[2019-08-28] MEDS: LEVOTHYROXINE SODIUM 100 MCG VIAL IVPUSH SCH (10:20)
--- NOTE | 2019-08-28 16:58 | PN.GI ---
GI Progress Note Subjective: No acute events Continued abdominal pain - Objective Vital Signs: Vital Signs Temperature 98.2 F 08/28/19 14:20 Pulse Rate 70 08/28/19 14:20 Respiratory Rate 18 08/28/19 14:20 Blood Pressure 137/77 08/28/19 14:20 O2 Sat by Pulse Oximetry (%) 96 08/28/19 08:39 Constitutional: Calm Eyes: No: Sclera Icterus Cardiovascular: Yes: Regular Rate and Rhythm Respiratory: Yes: CTA Bilaterally Gastrointestinal Inspection: No: Distention ...Auscultate: Yes: Normoactive Bowel Sounds ...Palpate: Yes: Soft, Tenderness (diffusely tender to even slighest touch) ...Percussion: No: Tympanitic Edema: No (No LE edema) Neurological: Yes: Alert Labs: CBC, BMP 08/27/19 11:40 08/27/19 11:40 Problem List - Problems (1) Dilated cbd, acquired Assessment/Plan: Ordered MRCP to evaluate further Check screening hepatitis serologies for A/B/C Code(s): K83.8 - OTHER SPECIFIED DISEASES OF BILIARY TRACT
--- NOTE | 2019-08-28 23:51 | PN ---
Progress Note, Physician - Current Medication List Current Medications: Active Medications Acetaminophen (Tylenol -) 650 mg PO Q6H PRN PRN Reason: PAIN LEVEL 4-10 Last Admin: 08/28/19 10:09 Dose: 650 mg Heparin Sodium (Porcine) (Heparin -) 5,000 unit SQ BID [facility] Last Admin: 08/28/19 21:16 Dose: 5,000 unit Hydrochlorothiazide (Hctz -) 25 mg PO DAILY [facility] Last Admin: 08/28/19 10:08 Dose: 25 mg Sodium Chloride (1/2 Normal Saline) 1,000 mls @ 75 mls/hr IV ASDIR [facility] Last Admin: 08/28/19 03:53 Dose: 75 mls/hr Insulin Aspart (Novolog Vial Sliding Scale -) 1 vial SQ ACHS [facility]; Protocol Last Admin: 08/28/19 21:16 Dose: 2 unit Levothyroxine Sodium (Synthroid Injection -) 25 mcg IVPUSH DAILY [facility] Last Admin: 08/28/19 10:20 Dose: 25 mcg Losartan Potassium (Cozaar -) 100 mg PO DAILY [facility] Last Admin: 08/28/19 10:08 Dose: 100 mg - Objective Vital Signs: Vital Signs Temperature 97.6 F 08/28/19 20:54 Pulse Rate 66 08/28/19 20:54 Respiratory Rate 20 08/28/19 21:00 Blood Pressure 135/79 08/28/19 20:54 O2 Sat by Pulse Oximetry (%) 96 08/28/19 21:00 Labs: CBC, BMP 08/27/19 11:40 08/27/19 11:40
[2019-08-29] MEDS: INSULIN SLIDING SCALE (NOVOLOG) 1 VIAL SQ SCH ×4 (06:20→21:42)
[2019-08-29] MEDS ORDERED: PT OWN MED DRAWER 7, Y5N ONE ×2 (06:46→09:20)
[2019-08-29] MEDS ORDERED: INSULIN (NOVOLOG) ASPART 100 UNITS/ML 10ML VIAL ONE ×2 (06:46→17:12)
[2019-08-29] MEDS: LOSARTAN POTASSIUM 50 MG TABLET (FP) PO SCH (09:13)
[2019-08-29] MEDS: HYDROCHLOROTHIAZIDE 25 MG TABLET (FP) PO SCH (09:13)
[2019-08-29] MEDS: HEPARIN NA (PORCINE) 5,000 UNITS/ML 1ML VIAL SQ SCH ×2 (09:14→21:42)
[2019-08-29] MEDS: LEVOTHYROXINE SODIUM 100 MCG VIAL IVPUSH SCH (10:19)
[2019-08-29 11:15] LABS: ALBUMIN 3.4 g/dl (3.4-5.0); BILIRUBIN,DIRECT 0.1 mg/dL (0.0-0.2); BILIRUBIN,TOTAL 0.5 mg/dL (0.2-1); TOT PROT 6.1 g/dl (6.4-8.2)
--- NOTE | 2019-08-29 20:18 | PN ---
Progress Note, Physician - Current Medication List Current Medications: Active Medications Acetaminophen (Tylenol -) 650 mg PO Q6H PRN PRN Reason: PAIN LEVEL 4-10 Last Admin: 08/28/19 10:09 Dose: 650 mg Heparin Sodium (Porcine) (Heparin -) 5,000 unit SQ BID [facility] Last Admin: 08/29/19 09:14 Dose: 5,000 unit Hydrochlorothiazide (Hctz -) 25 mg PO DAILY [facility] Last Admin: 08/29/19 09:13 Dose: 25 mg Sodium Chloride (1/2 Normal Saline) 1,000 mls @ 75 mls/hr IV ASDIR [facility] Last Admin: 08/28/19 03:53 Dose: 75 mls/hr Insulin Aspart (Novolog Vial Sliding Scale -) 1 vial SQ ACHS [facility]; Protocol Last Admin: 08/29/19 17:05 Dose: 6 unit Levothyroxine Sodium (Synthroid Injection -) 25 mcg IVPUSH DAILY [facility] Last Admin: 08/29/19 10:19 Dose: 25 mcg Losartan Potassium (Cozaar -) 100 mg PO DAILY [facility] Last Admin: 08/29/19 09:13 Dose: 100 mg - Objective Vital Signs: Vital Signs Temperature 98.1 F 08/29/19 18:00 Pulse Rate 64 08/29/19 18:00 Respiratory Rate 20 08/29/19 18:00 Blood Pressure 133/79 08/29/19 18:00 O2 Sat by Pulse Oximetry (%) 99 08/29/19 08:22 Labs: CBC, BMP 08/27/19 11:40 08/27/19 11:40
[2019-08-29] MEDS: SODIUM CHLORIDE 0.45% 1,000 ML IV SCH (21:41)
[2019-08-30] MEDS: SODIUM CHLORIDE 0.45% 1,000 ML IV SCH ×2 (00:10→14:15)
[2019-08-30] MEDS: INSULIN SLIDING SCALE (NOVOLOG) 1 VIAL SQ SCH ×4 (06:12→21:42)
[2019-08-30] MEDS: ACETAMINOPHEN 325 MG TABLET (FP) PO PRN ×2 (06:14→14:11)
[2019-08-30] MEDS ORDERED: KETOROLAC TROMETHAMINE 30 MG/1 ML VIAL IVPUSH ONE ×2 (09:15→14:15)
[2019-08-30] MEDS ORDERED: PT OWN MED DRAWER 7, Y5N ONE (09:54)
[2019-08-30] MEDS: HYDROCHLOROTHIAZIDE 25 MG TABLET (FP) PO SCH (09:59)
[2019-08-30] MEDS: LOSARTAN POTASSIUM 50 MG TABLET (FP) PO SCH (09:59)
[2019-08-30] MEDS: HEPARIN NA (PORCINE) 5,000 UNITS/ML 1ML VIAL SQ SCH ×2 (10:02→21:42)
[2019-08-30] MEDS: LEVOTHYROXINE SODIUM 100 MCG VIAL IVPUSH SCH (10:09)
[2019-08-30 10:52] LABS: BASO % 0.9 % (0-2.0); EOS % 0.4 % (0-4.5); HEMATOCRIT 35.4 % (32.4-45.2); HEMOGLOBIN 11.9 GM/dL (10.7-15.3); MCH 31.1 pg (25.7-33.7); MCHC 33.6 g/dl (32.0-36.0); MEAN CELL VOLUME 92.4 fl (80-96); MEAN PLT VOLUME 10.2 fl (7.5-11.1); MONO % 9.3 % (3.8-10.2); NEUT % 48.4 % (42.8-82.8); PLATELET COUNT 175 K/MM3 (134-434); RBC 3.83 M/mm3 (3.60-5.2); WHITE BLOOD COUNT 3.1 K/mm3 (4.0-10.0)
[2019-08-30 11:33] LABS: ALBUMIN 3.3 g/dl (3.4-5.0); BILIRUBIN,TOTAL 0.5 mg/dL (0.2-1); CALCIUM 9.2 mg/dL (8.5-10.1); CREATININE 1.1 mg/dL (0.55-1.3); POTASSIUM 3.6 mmol/L (3.5-5.1); TOT PROT 5.7 g/dl (6.4-8.2)
--- NOTE | 2019-08-30 19:25 | PN ---
Progress Note, Physician Chief Complaint: tired and weak - Current Medication List Current Medications: Active Medications Acetaminophen (Tylenol -) 650 mg PO Q6H PRN PRN Reason: PAIN LEVEL 4-10 Last Admin: 08/30/19 14:11 Dose: 650 mg Glimepiride (Amaryl -) 4 mg PO DAILY@0700 [facility] Heparin Sodium (Porcine) (Heparin -) 5,000 unit SQ BID [facility] Last Admin: 08/30/19 10:02 Dose: 5,000 unit Hydrochlorothiazide (Hctz -) 25 mg PO DAILY [facility] Last Admin: 08/30/19 09:59 Dose: 25 mg Sodium Chloride (1/2 Normal Saline) 1,000 mls @ 75 mls/hr IV ASDIR [facility] Last Admin: 08/30/19 14:15 Dose: 75 mls/hr Insulin Aspart (Novolog Vial Sliding Scale -) 1 vial SQ ACHS [facility]; Protocol Last Admin: 08/30/19 17:05 Dose: 5 unit Levothyroxine Sodium (Synthroid Injection -) 25 mcg IVPUSH DAILY [facility] Last Admin: 08/30/19 10:09 Dose: 25 mcg Losartan Potassium (Cozaar -) 100 mg PO DAILY [facility] Last Admin: 08/30/19 09:59 Dose: 100 mg - Objective Vital Signs: Vital Signs Temperature 98.5 F 08/30/19 18:00 Pulse Rate 67 08/30/19 18:00 Respiratory Rate 20 08/30/19 18:00 Blood Pressure 155/92 08/30/19 18:00 O2 Sat by Pulse Oximetry (%) 97 08/30/19 10:00 Constitutional: Yes: Calm Eyes: Yes: EOM Intact HENT: Yes: Normocephalic Neck: Yes: Trachea Midline, Thyromegaly Cardiovascular: Yes: Regular Rate and Rhythm Respiratory: Yes: CTA Bilaterally Gastrointestinal: Yes: Normal Bowel Sounds ...Rectal Exam: Yes: Deferred Genitourinary: Yes: WNL Musculoskeletal: Yes: WNL Extremities: Yes: WNL Edema: No Peripheral Pulses WNL: Yes Neurological: Yes: Alert, Oriented Labs: CBC, BMP 08/30/19 10:30 08/30/19 10:30 Problem List - Problems (1) Hypertension Code(s): I10 - ESSENTIAL (PRIMARY) HYPERTENSION Qualifiers: Hypertension type: unspecified Qualified Code(s): I10 - Essential (primary ) hypertension (2) Hypothyroidism Code(s): E03.9 - HYPOTHYROIDISM, UNSPECIFIED Qualifiers: Hypothyroidism type: unspecified Qualified Code(s): E03.9 - Hypothyroidism , unspecified (3) Weakness Code(s): R53.1 - WEAKNESS (4) Costochondritis, acute Code(s): M94.0 - CHONDROCOSTAL JUNCTION SYNDROME [TIETZE] (5) Diabetes mellitus, insulin dependent (IDDM), uncontrolled Code(s): E11.65 - TYPE 2 DIABETES MELLITUS WITH HYPERGLYCEMIA; Z79.4 - BILINGUAL MANAGER (CURRENT) USE OF INSULIN (6) Frequent falls Code(s): R29.6 - REPEATED FALLS (7) Headache, tension type, episodic Code(s): G44.219 - EPISODIC TENSION-TYPE HEADACHE, NOT INTRACTABLE Assessment/Plan Current Active Problems Dilated cbd, acquired (Acute) Hypertension (Acute) Hypothyroidism (Acute) Weakness (Acute) dm t2 Abnormal Lab Results 08/30/19 08/30/19 10:30 10:30 WBC 3.1 L Lymphocytes % 41.0 H Random Glucose 304 H ALT 88 H Total Protein 5.7 L Albumin 3.3 L Laboratory Results - last 24 hr 08/29/19 08/30/19 08/30/19 21:17 06:05 10:30 WBC 3.1 L RBC 3.83 Hgb 11.9 Hct 35.4 MCV 92.4 MCH 31.1 MCHC 33.6 RDW 15.0 Plt Count 175 MPV 10.2 Absolute Neuts (auto) 1.5 Neutrophils % 48.4 Lymphocytes % 41.0 H Monocytes % 9.3 Eosinophils % 0.4 Basophils % 0.9 Nucleated RBC % 0 Sodium Potassium Chloride Carbon Dioxide Anion Gap BUN Creatinine Est GFR (CKD-EPI)AfAm Est GFR (CKD-EPI)NonAf POC Glucometer 158 148 Random Glucose Calcium Total Bilirubin AST ALT Alkaline Phosphatase Total Protein Albumin 08/30/19 08/30/19 08/30/19 10:30 11:59 17:03 WBC RBC Hgb Hct MCV MCH MCHC RDW Plt Count MPV Absolute Neuts (auto) Neutrophils % Lymphocytes % Monocytes % Eosinophils % Basophils % Nucleated RBC % Sodium 137 Potassium 3.6 Chloride 102 Carbon Dioxide 24 Anion Gap 10 BUN 10.0 Creatinine 1.1 Est GFR (CKD-EPI)AfAm 56.08 Est GFR (CKD-EPI)NonAf 48.39 POC Glucometer 270 244 Random Glucose 304 H Calcium 9.2 Total Bilirubin 0.5 AST 23 ALT 88 H Alkaline Phosphatase 80 Total Protein 5.7 L Albumin 3.3 L plan: levemir 15 units am glimiperide 4mg daily gi workup for rlg pain synthroid 125mcg daily po
--- NOTE | 2019-08-30 23:02 | PN ---
Progress Note, Physician History of Present Illness: Pt having RUQ abdominal pain - Current Medication List Current Medications: Active Medications Acetaminophen (Tylenol -) 650 mg PO Q6H PRN PRN Reason: PAIN LEVEL 4-10 Last Admin: 08/30/19 14:11 Dose: 650 mg Glimepiride (Amaryl -) 4 mg PO DAILY@0700 [facility] Heparin Sodium (Porcine) (Heparin -) 5,000 unit SQ BID [facility] Last Admin: 08/30/19 21:42 Dose: 5,000 unit Hydrochlorothiazide (Hctz -) 25 mg PO DAILY [facility] Last Admin: 08/30/19 09:59 Dose: 25 mg Sodium Chloride (1/2 Normal Saline) 1,000 mls @ 75 mls/hr IV ASDIR [facility] Last Admin: 08/30/19 14:15 Dose: 75 mls/hr Insulin Aspart (Novolog Vial Sliding Scale -) 1 vial SQ ACHS [facility]; Protocol Last Admin: 08/30/19 21:42 Dose: 2 unit Insulin Detemir (Levemir Vial) 15 units SQ AM [facility] Levothyroxine Sodium (Synthroid -) 125 mcg PO DAILY@0700 [facility] Losartan Potassium (Cozaar -) 100 mg PO DAILY [facility] Last Admin: 08/30/19 09:59 Dose: 100 mg - Objective Vital Signs: Vital Signs Temperature 98.5 F 08/30/19 18:00 Pulse Rate 67 08/30/19 18:00 Respiratory Rate 20 08/30/19 18:00 Blood Pressure 155/92 08/30/19 18:00 O2 Sat by Pulse Oximetry (%) 97 08/30/19 10:00 Neck: Yes: WNL, Supple Cardiovascular: Yes: WNL, Regular Rate and Rhythm Respiratory: Yes: WNL, Regular, CTA Bilaterally Gastrointestinal: Yes: WNL, Normal Bowel Sounds, Soft Edema: No Labs: CBC, BMP 08/30/19 10:30 08/30/19 10:30 Problem List - Problems (1) Abdominal pain Assessment/Plan: Pt awaiting MRI abd/MRCP Code(s): R10.9 - UNSPECIFIED ABDOMINAL PAIN (2) Hypertension Code(s): I10 - ESSENTIAL (PRIMARY) HYPERTENSION Qualifiers: Hypertension type: unspecified Qualified Code(s): I10 - Essential (primary ) hypertension (3) Hypothyroidism Code(s): E03.9 - HYPOTHYROIDISM, UNSPECIFIED Qualifiers: Hypothyroidism type: unspecified Qualified Code(s): E03.9 - Hypothyroidism , unspecified (4) Weakness Code(s): R53.1 - WEAKNESS (5) Diabetes Code(s): E11.9 - TYPE 2 DIABETES MELLITUS WITHOUT COMPLICATIONS
[2019-08-31] MEDS: SODIUM CHLORIDE 0.45% 1,000 ML IV SCH ×4 (03:45→23:33)
[2019-08-31] MEDS: INSULIN (LEVEMIR) 100 UNITS/ML UNITS SQ SCH (06:38)
[2019-08-31] MEDS: GLIMEPIRIDE 4 MG TABLET (FP) PO SCH (06:38)
[2019-08-31] MEDS: ACETAMINOPHEN 325 MG TABLET (FP) PO PRN (06:38)
[2019-08-31] MEDS: LEVOTHYROXINE NA 125 MCG TABLET (FP) PO SCH (06:38)
[2019-08-31] MEDS: INSULIN SLIDING SCALE (NOVOLOG) 1 VIAL SQ SCH ×4 (06:38→21:55)
[2019-08-31] MEDS: LOSARTAN POTASSIUM 50 MG TABLET (FP) PO SCH (09:28)
[2019-08-31] MEDS: HEPARIN NA (PORCINE) 5,000 UNITS/ML 1ML VIAL SQ SCH ×2 (09:28→21:51)
[2019-08-31] MEDS: HYDROCHLOROTHIAZIDE 25 MG TABLET (FP) PO SCH (09:28)
--- NOTE | 2019-08-31 12:53 | PN.GI ---
GI Progress Note Subjective: Still with pain Concerned about having MRCP - Objective Vital Signs: Vital Signs Temperature 98.3 F 08/31/19 09:00 Pulse Rate 62 08/31/19 09:00 Respiratory Rate 20 08/31/19 09:00 Blood Pressure 143/81 08/31/19 09:00 O2 Sat by Pulse Oximetry (%) 97 08/30/19 10:00 Constitutional: Calm Eyes: No: Sclera Icterus Cardiovascular: Yes: Regular Rate and Rhythm Respiratory: Yes: CTA Bilaterally Gastrointestinal Inspection: No: Distention ...Auscultate: Yes: Normoactive Bowel Sounds ...Palpate: Yes: Soft, Tenderness (to even slight palpation) ...Percussion: No: Tympanitic Edema: No (No LE edema) Neurological: Yes: Alert Labs: CBC, BMP 08/30/19 10:30 08/30/19 10:30 Problem List - Problems (1) Dilated cbd, acquired Assessment/Plan: Willing to have MRCP/ Advised nurse to call PMD and arrange giving anxiolytic prior to test Family present at bedside. In agreement Code(s): K83.8 - OTHER SPECIFIED DISEASES OF BILIARY TRACT
[2019-08-31] MEDS ORDERED: INSULIN (NOVOLOG) ASPART 100 UNITS/ML 10ML VIAL ONE (21:41)
--- NOTE | 2019-08-31 23:10 | PN ---
Progress Note, Physician History of Present Illness: Pt having RUQ abdominal pain - Current Medication List Current Medications: Active Medications Acetaminophen (Tylenol -) 650 mg PO Q6H PRN PRN Reason: PAIN LEVEL 4-10 Last Admin: 08/31/19 06:38 Dose: 650 mg Glimepiride (Amaryl -) 4 mg PO DAILY@0700 [facility] Last Admin: 08/31/19 06:38 Dose: 4 mg Heparin Sodium (Porcine) (Heparin -) 5,000 unit SQ BID [facility] Last Admin: 08/31/19 21:51 Dose: Not Given Hydrochlorothiazide (Hctz -) 25 mg PO DAILY [facility] Last Admin: 08/31/19 09:28 Dose: 25 mg Sodium Chloride (1/2 Normal Saline) 1,000 mls @ 75 mls/hr IV ASDIR [facility] Last Admin: 08/31/19 17:35 Dose: 75 mls/hr Insulin Aspart (Novolog Vial Sliding Scale -) 1 vial SQ [facility]; Protocol Last Admin: 08/31/19 21:55 Dose: 2 unit Insulin Detemir (Levemir Vial) 15 units SQ AM [facility] Last Admin: 08/31/19 06:38 Dose: 15 units Levothyroxine Sodium (Synthroid -) 125 mcg PO DAILY@0700 [facility] Last Admin: 08/31/19 06:38 Dose: 125 mcg Losartan Potassium (Cozaar -) 100 mg PO DAILY [facility] Last Admin: 08/31/19 09:28 Dose: 100 mg - Objective Vital Signs: Vital Signs Temperature 98.1 F 08/31/19 18:00 Pulse Rate 67 08/31/19 18:00 Respiratory Rate 20 08/31/19 18:00 Blood Pressure 138/76 08/31/19 18:00 O2 Sat by Pulse Oximetry (%) 100 08/31/19 09:00 Neck: Yes: WNL, Supple Cardiovascular: Yes: WNL, Regular Rate and Rhythm Respiratory: Yes: WNL, Regular, CTA Bilaterally Gastrointestinal: Yes: WNL, Normal Bowel Sounds, Soft Labs: CBC, BMP 08/30/19 10:30 08/30/19 10:30 Problem List - Problems (1) Abdominal pain Assessment/Plan: Pt awaiting MRI abd/MRCP Xanax was ordered to be given prior to MRI LFT's improved Code(s): R10.9 - UNSPECIFIED ABDOMINAL PAIN (2) Hypertension Assessment/Plan: BP stable Cont Hctz/losartan Code(s): I10 - ESSENTIAL (PRIMARY) HYPERTENSION Qualifiers: Hypertension type: unspecified Qualified Code(s): I10 - Essential (primary ) hypertension (3) Hypothyroidism Assessment/Plan: Cont levothyroxine Code(s): E03.9 - HYPOTHYROIDISM, UNSPECIFIED Qualifiers: Hypothyroidism type: unspecified Qualified Code(s): E03.9 - Hypothyroidism , unspecified (4) Weakness Code(s): R53.1 - WEAKNESS (5) Diabetes Assessment/Plan: Glucose still elevated Cont levemir/sliding scale w/ coverage Cont amaryl Code(s): E11.9 - TYPE 2 DIABETES MELLITUS WITHOUT COMPLICATIONS
[2019-09-01] MEDS: ACETAMINOPHEN 325 MG TABLET (FP) PO PRN (07:02)
[2019-09-01] MEDS: LEVOTHYROXINE NA 125 MCG TABLET (FP) PO SCH (07:02)
[2019-09-01] MEDS: GLIMEPIRIDE 4 MG TABLET (FP) PO SCH (07:02)
[2019-09-01] MEDS: INSULIN SLIDING SCALE (NOVOLOG) 1 VIAL SQ SCH ×3 (07:03→17:06)
[2019-09-01] MEDS: INSULIN (LEVEMIR) 100 UNITS/ML UNITS SQ SCH (07:03)
[2019-09-01] MEDS ORDERED: PT OWN MED DRAWER 7, Y5N ONE (10:23)
[2019-09-01] MEDS ORDERED: ALPRAZolam 0.25 MG TABLET PO ONE (10:23)
[2019-09-01] MEDS: LOSARTAN POTASSIUM 50 MG TABLET (FP) PO SCH (10:27)
[2019-09-01] MEDS: HEPARIN NA (PORCINE) 5,000 UNITS/ML 1ML VIAL SQ SCH (10:28)
[2019-09-01] MEDS: HYDROCHLOROTHIAZIDE 25 MG TABLET (FP) PO SCH (10:28)
[2019-09-01] MEDS ORDERED: PANTOPRAZOLE 40 MG TABLET (FP) PO SCH (10:30)
[2019-09-01] MEDS ORDERED: MORPHINE SULFATE 2 MG/ML VIAL IVPUSH PRN (10:38)
[2019-09-01 11:45] LABS: EOS % 0.5 % (0-4.5); HEMATOCRIT 38.5 % (32.4-45.2); HEMOGLOBIN 12.7 GM/dL (10.7-15.3); LYMPH % 43.7 % (8-40); MCH 30.6 pg (25.7-33.7); MCHC 32.9 g/dl (32.0-36.0); MEAN CELL VOLUME 93.1 fl (80-96); MONO % 9.5 % (3.8-10.2); NEUT % 45.3 % (42.8-82.8); PLATELET COUNT 201 K/MM3 (134-434); RBC 4.14 M/mm3 (3.60-5.2); RDW 15.6 % (11.6-15.6); WHITE BLOOD COUNT 3.7 K/mm3 (4.0-10.0)
[2019-09-01 12:15] LABS: ALBUMIN 3.6 g/dl (3.4-5.0); ALK PHOS 86 U/L (45-117); ANION GAP 8 MMOL/L (8-16); BILIRUBIN,TOTAL 0.4 mg/dL (0.2-1); BLOOD UREA NITROGEN 13.6 mg/dL (7-18); CALCIUM 9.7 mg/dL (8.5-10.1); CHLORIDE 102 mmol/L (98-107); CO2 29 mmol/L (21-32); CREATININE 0.9 mg/dL (0.55-1.3); GLUCOSE,RANDOM 134 mg/dL (74-106); POTASSIUM 4.1 mmol/L (3.5-5.1); SGOT/AST 36 U/L (15-37); SGPT/ALT 84 U/L (13-61); SODIUM 140 mmol/L (136-145); TOT PROT 6.3 g/dl (6.4-8.2)
--- NOTE | 2019-09-01 14:30 | PN ---
Progress Note (short form) - Note Progress Note: GI f/u Pt claustrophobic and unsure if she can undergo MRI Received morphine for 08/28 abdominal pain Vital Signs Temp 98.2 F 09/01/19 10:35 Pulse 65 09/01/19 10:35 Resp 19 09/01/19 10:35 BP 139/80 09/01/19 10:35 Pulse Ox 98 09/01/19 10:00 NAD Anicteric CBC, BMP 09/01/19 11:10 09/01/19 11:10 Hepatic Panel Total Bilirubin 0.4 mg/dL (0.2-1) 09/01/19 11:10 Direct Bilirubin 0.1 mg/dL (0.0-0.2) 08/29/19 09:36 AST 36 U/L (15-37) 09/01/19 11:10 ALT 84 U/L (13-61) H 09/01/19 11:10 Alkaline Phosphatase 86 U/L (45-117) 09/01/19 11:10 Albumin 3.6 g/dl (3.4-5.0) 09/01/19 11:10 Impression: unclear etiology of abdominal pain. Given dilated CBD on US, reasonable to get MRCP. Open MRI is inadequate. Discussed with pt and family - would try giving patient sedation immediately before going down to MRI. Trend LFTs daily.
[2019-09-01 16:11] LABS: HEP B CORE AB, TOT Positive (Negative)
[2019-09-01 18:33] VITALS: BP 135/73; PULSE 61; TEMP 97.3
--- NOTE | 2019-09-01 23:57 | PN ---
Progress Note, Physician - Objective Vital Signs: Vital Signs Temperature 97.3 F L 09/01/19 18:00 Pulse Rate 61 09/01/19 18:00 Respiratory Rate 20 09/01/19 18:00 Blood Pressure 135/73 09/01/19 18:00 O2 Sat by Pulse Oximetry (%) 98 09/01/19 10:00 Labs: CBC, BMP 09/01/19 11:10 09/01/19 11:10 Problem List - Problems (1) Abdominal pain Code(s): R10.9 - UNSPECIFIED ABDOMINAL PAIN (2) Hypertension Code(s): I10 - ESSENTIAL (PRIMARY) HYPERTENSION Qualifiers: Hypertension type: unspecified Qualified Code(s): I10 - Essential (primary ) hypertension (3) Hypothyroidism Code(s): E03.9 - HYPOTHYROIDISM, UNSPECIFIED Qualifiers: Hypothyroidism type: unspecified Qualified Code(s): E03.9 - Hypothyroidism , unspecified (4) Weakness Code(s): R53.1 - WEAKNESS (5) Diabetes Code(s): E11.9 - TYPE 2 DIABETES MELLITUS WITHOUT COMPLICATIONS
== END 2019-09-01 19:40 | disposition left against medical advice (07) | DRG 446 ==
LOC: JER 16:42 → SUPCPDRO 16:42 → JERBED 20:45 → J5S 08-27 12:33
PROVIDERS: ADMIT Internal Medicine; ATTEND Internal Medicine
DX: K83.8 Other specified diseases of biliary tract (principal); E11.65 Type 2 diabetes mellitus with hyperglycemia; I10 Essential (primary) hypertension; E03.9 Hypothyroidism, unspecified; R11.2 Nausea with vomiting, unspecified; D64.9 Anemia, unspecified; I25.10 Atherosclerotic heart disease of native coronary artery without angina pectoris; I50.9 Heart failure, unspecified; M94.0 Chondrocostal junction syndrome [Tietze]; Z98.61 Coronary angioplasty status
CPT/HCPCS: 36415; 71046-TC-FY; 76700-TC; 80053; 80076; 81003; 82010; 82550; 82803; 82962; 83036; 83690; 83735; 84100; 84436; 84439; 84443; 84479; 84484; 85025; 86704; 86706; 86707; 86708; 86709; 86803; 87086; 87340; 93005; 93010; 99284-25; J1644; Q2036

== ENCOUNTER 2019-09-26 00:36 | Inpatient (IN) | payer OTHER ==
--- NOTE | 2019-09-26 02:17 | PDOC ---
History of Present Illness - General Chief Complaint: Pain, Acute Stated Complaint: ABD PAIN Time Seen by Provider: 09/26/19 00:55 - History of Present Illness Initial Comments: Ms. Jackson is a 79 y/o female with extensive PMH including HTN, HLD, DM, CAD, CHF, presenting today with diffuse right sided abdominal pain that radiates to her back. Reports that she has had this pain since February. Reports that the pain has been worsening over the past 7 months. Reports that the pain is constant. Reports that she vomits 2-3x per week. Denies fever. Reports mild chest pain and shortness of breath at rest that worsens on exertion. She has been having this pain for the past 7 months and reports that she has been hospitalized several times in the interim. She had an MRI of the abdomen done last Sunday. Past History - Past Medical History Allergies/Adverse Reactions: Allergies Allergy/AdvReac Type Severity Reaction Status Date / Time azithromycin [From Azasite] Allergy Verified 09/26/19 00:48 Penicillins Allergy passes out Verified 09/26/19 00:48 phenylephrine Allergy Verified 09/26/19 00:48 LOTEMAX Allergy Uncoded 09/26/19 00:48 NEOSYNEPH Allergy Uncoded 09/26/19 00:48 Home Medications: Ambulatory Orders Esomeprazole Magnesium [Nexium 24Hr] 40 mg PO DAILY 09/26/19 Levothyroxine [Synthroid -] 75 mcg PO DAILY 09/26/19 Lorazepam [Ativan] 1 mg PO BID 09/26/19 Losartan/Hydrochlorothiazide [Hyzaar 100-25 Tablet] 1 each PO DAILY 09/26/19 Oxybutynin Chloride [Ditropan Xl] 10 mg PO DAILY 09/26/19 Pregabalin [Lyrica] 25 mg PO BID 09/26/19 Insulin Degludec [Tresiba Flextouch U-200] 50 SQ DAILY 09/28/19 Anemia: Yes Asthma: No Cancer: No Cardiac Disorders: No CVA: No COPD: No CHF: No Dementia: No Diabetes: Yes GI Disorders: No Disorders: No HTN: Yes Hypercholesterolemia: Yes Liver Disease: No Seizures: No Thyroid Disease: Yes (HYPO) - Surgical History Abdominal Surgery: No Appendectomy: No Cardiac Surgery: No Cholecystectomy: No Lung Surgery: No Neurologic Surgery: No Orthopedic Surgery: Yes (TENDON OPERATION Bilateral Hands) - Immunization History Immunization Up to Date: No - Psycho Social/Smoking Cessation Hx Smoking Status: No Smoking History: Never smoked Have you smoked in the past 12 months: No Number of Cigarettes Smoked Daily: 0 Information on smoking cessation initiated: No Hx Alcohol Use: No Drug/Substance Use Hx: No Substance Use Type: None Hx Substance Use Treatment: No *Physical Exam - Vital Signs Last Vital Signs Temp Pulse Resp BP Pulse Ox 97.4 F L 69 20 132/85 99 09/26/19 00:48 09/26/19 00:48 09/26/19 00:48 09/26/19 00:48 09/26/19 01:31 ED Treatment Course - LABORATORY CBC & Chemistry Diagram: 09/27/19 06:55 09/27/19 06:55 Medical Decision Making - Medical Decision Making 79F with extensive PMH presenting with abdominal pain radiating to the back for the past 7 months. -cbc, cmp, lactic, lipase, coags, bnp -cxr, ekg, trop -ct abd w/ IV contrast -ua, uc 09/26/19 03:41 EKG shows 62 bpm, NSR, no axis deviation, QTc 412, [place] 110. 09/26/[address] abd pelv shows no acute intraabdominal pathology, with mild pancreatic atrophy and possible chronic pancreatitis. Labs reviewed and wnl. Lipase not elevated. UA reviewed and shows possible signs of UTI. 09/26/[address] Regalado answering service. 09/26/19 06:[address] Regalado mobile. 09/26/19 0700 Pt signed out to Dr. Lindsay. Discharge - Discharge Information Problems reviewed: Yes Clinical Impression/Diagnosis: Abdominal pain Qualifiers: Abdominal location: unspecified location Qualified Code(s): R10.9 - Unspecified abdominal pain Condition: Stable - Admission Yes - Follow up/Referral - Patient Discharge Instructions - Post Discharge Activity
[2019-09-26] MEDS ORDERED: morphine CARPU-JECT 4 MG/1 ML DISP.SYRIN IVPUSH ONE (02:50)
[2019-09-26] MEDS ORDERED: morphine SULFATE 4 MG/ML VIAL ONE (02:57)
[2019-09-26 03:36] LABS: BASO % 0.9 % (0-2.0); EOS % 0.6 % (0-4.5); HEMATOCRIT 39.5 % (32.4-45.2); HEMOGLOBIN 13.4 GM/dL (10.7-15.3); LYMPH % 35.9 % (8-40); MCH 31.2 pg (25.7-33.7); MCHC 33.9 g/dl (32.0-36.0); MEAN CELL VOLUME 92.1 fl (80-96); MEAN PLT VOLUME 9.5 fl (7.5-11.1); MONO % 9.6 % (3.8-10.2); PLATELET COUNT 248 K/MM3 (134-434); RBC 4.29 M/mm3 (3.60-5.2); RDW 14.7 % (11.6-15.6); WHITE BLOOD COUNT 5.1 K/mm3 (4.0-10.0)
[2019-09-26 04:01] LABS: ALBUMIN 3.9 g/dl (3.4-5.0); BILIRUBIN,TOTAL 0.6 mg/dL (0.2-1); BLOOD UREA NITROGEN 11.7 mg/dL (7-18); CALCIUM 9.3 mg/dL (8.5-10.1); POTASSIUM 4.3 mmol/L (3.5-5.1); TOT PROT 6.7 g/dl (6.4-8.2)
[2019-09-26 04:12] LABS: N-TERMINAL BNP 143.9 pg/ml (5-450)
--- NOTE | 2019-09-26 04:19 | PDOC ---
Attending Attestation - Resident Resident Name: Jame Yepez - ED Attending Attestation I have performed the following: I have examined & evaluated the patient, The case was reviewed & discussed with the resident, I agree w/resident's findings & plan, Exceptions are as noted - HPI HPI: 09/26/19 04:17 79 yo F h/o DM htn hld CAD, CHF dilated cbd in the past, here with c/o right sided abd pain n/v. pt states threw up few times.all nonbloody nonbilious. no fevr or chills. no mod factors. ext wp no edema. no calf tenderness. no mod factors. had MRI two days ago to evaluate this pain. 09/26/19 06:26 - Physicial Exam PE: 09/26/19 06:27 awake alert lungs clear bilat heart rrr no mrg abd soft nt nd ext wwp no edema no calf tenderness. - Medical Decision Making 09/26/19 04:18 79 yo F with h/o hysterectomy, oopherectomy htn hld dm here with n/v abd pain. differential worsening cbd dilation, biliary obstruction, sbo, uti pyelo. plan ct ap labs ua zofran. 09/26/19 06:27 pt ith UtI, will likely require admission due to renal failure, and didn' get to eat. 09/26/19 07:07 pt was given ceftriaxone for uti, paged dr graham for admission, left message. awaiting call back. signed out to oncoming team pending admission.
[2019-09-26 04:23] LABS: PROTHROMBIN TIME (PATIENT) 11.8 SEC (9.7-13.0)
[2019-09-26 04:40] LABS: EPI CELLS 1.5 /HPF (0-5/HPF); HYALINE CASTS 7 /lpf (0-8); PH,URINE 7.5 (5.0-8.0); URINE APPEARANCE CLEAR; URINE BACTERIA 95.1 /hpf (NEGATIVE); URINE BILIRUBIN NEGATIVE (NEGATIVE); URINE COLOR YELLOW; URINE GLUCOSE (UA) 1+ (NEGATIVE); URINE KETONE NEGATIVE (NEGATIVE); URINE LEUK ESTERASE 3+ (NEGATIVE); URINE NITRITE NEGATIVE (NEGATIVE); URINE PROTEIN NEGATIVE (NEGATIVE); URINE RBC 1 /hpf (0-4); URINE UROBILINOGEN 0.2 mg/dL (0.2-1.0); URINE WBC 59 /hpf (0-5)
[2019-09-26] MEDS ORDERED: CEFTRIAXONE 1,000 MG in DEXTROSE 5%-WATER - 50 ML IVPB ONE (06:33)
[2019-09-26] MEDS ORDERED: CEFTRIAXONE 1 GM/50 ML BAG ONE (06:40)
--- NOTE | 2019-09-26 07:48 | PDOC ---
*Physical Exam - Vital Signs Last Vital Signs Temp Pulse Resp BP Pulse Ox 97.4 F L 65 18 153/90 97 09/26/19 00:48 09/26/19 06:03 09/26/19 06:03 09/26/19 06:03 09/26/19 06:03 ED Treatment Course - LABORATORY CBC & Chemistry Diagram: 09/26/19 03:14 09/26/19 03:14 - ADDITIONAL ORDERS Additional order review: Laboratory Results 09/26/19 09/26/19 09/26/19 04:23 03:14 03:14 PT with INR 11.80 INR 1.00 PTT (Actin FS) Sodium Potassium Chloride Carbon Dioxide Anion Gap BUN Creatinine Est GFR (CKD-EPI)AfAm Est GFR (CKD-EPI)NonAf Random Glucose Lactic Acid Calcium Total Bilirubin AST ALT Alkaline Phosphatase Creatine Kinase Troponin I B-Natriuretic Peptide 143.9 Total Protein Albumin Lipase 59 L Urine Color Yellow Urine Appearance Clear Urine pH 7.5 Ur Specific [place] 1.017 Urine Protein Negative Urine Glucose (UA) 1+ H Urine Ketones Negative Urine Blood Negative Urine Nitrite Negative Urine Bilirubin Negative Urine Urobilinogen 0.2 Ur Leukocyte Esterase 3+ H Urine WBC (Auto) 59 Urine RBC (Auto) 1 Urine Casts (Auto) 7 U Epithel Cells (Auto) 1.5 Urine Bacteria (Auto) 95.1 09/26/19 09/26/19 09/26/19 03:14 03:14 03:14 PT with INR INR PTT (Actin FS) Sodium 138 Potassium 4.3 Chloride 100 Carbon Dioxide 31 Anion Gap 7 L BUN 11.7 Creatinine 1.0 Est GFR (CKD-EPI)AfAm 62.93 Est GFR (CKD-EPI)NonAf 54.30 Random Glucose 264 H Lactic Acid 1.6 Calcium 9.3 Total Bilirubin 0.6 AST 21 ALT 53 Alkaline Phosphatase 89 Creatine Kinase 98 Troponin I < 0.02 B-Natriuretic Peptide Total Protein 6.7 Albumin 3.9 Lipase Urine Color Urine Appearance Urine pH Ur Specific [place] Urine Protein Urine Glucose (UA) Urine Ketones Urine Blood Urine Nitrite Urine Bilirubin Urine Urobilinogen Ur Leukocyte Esterase Urine WBC (Auto) Urine RBC (Auto) Urine Casts (Auto) U Epithel Cells (Auto) Urine Bacteria (Auto) 09/26/19 03:14 PT with INR INR PTT (Actin FS) 36.8 H Sodium Potassium Chloride Carbon Dioxide Anion Gap BUN Creatinine Est GFR (CKD-EPI)AfAm Est GFR (CKD-EPI)NonAf Random Glucose Lactic Acid Calcium Total Bilirubin AST ALT Alkaline Phosphatase Creatine Kinase Troponin I B-Natriuretic Peptide Total Protein Albumin Lipase Urine Color Urine Appearance Urine pH Ur Specific [place] Urine Protein Urine Glucose (UA) Urine Ketones Urine Blood Urine Nitrite Urine Bilirubin Urine Urobilinogen Ur Leukocyte Esterase Urine WBC (Auto) Urine RBC (Auto) Urine Casts (Auto) U Epithel Cells (Auto) Urine Bacteria (Auto) 09/26/19 03:14 RBC 4.29 MCV 92.1 MCHC 33.9 RDW 14.7 MPV 9.5 Neutrophils % 53.0 Lymphocytes % 35.9 Monocytes % 9.6 Eosinophils % 0.6 Basophils % 0.9 - Medications Given in the ED: ED Medications Discontinued Medications Generic Name Dose Route Start Last Admin Trade Name Freq PRN Reason Stop Dose Admin Ceftriaxone Sodium 1,000 mg/ 50 mls @ 100 mls/hr 09/26/19 06:33 09/26/19 06: 44 Dextrose IVPB 09/26/19 07:02 100 mls/hr ONCE ONE Administration Morphine Sulfate 4 mg 09/26/19 02:50 09/26/19 03:17 Morphine Injection - IVPUSH 09/26/19 02:51 4 mg ONCE ONE Administration Medical Decision Making - Medical Decision Making 09/26/19 07:00 received sign out from PM team - admit to Dr. Regalado 09/26/19 08:02 ADMITTED M/S Discharge - Discharge Information Problems reviewed: Yes Clinical Impression/Diagnosis: Abdominal pain Qualifiers: Abdominal location: unspecified location Qualified Code(s): R10.9 - Unspecified abdominal pain - Follow up/Referral Referrals: Nash Kendrick MD [Primary Care Provider] - - Patient Discharge Instructions - Post Discharge Activity
[2019-09-26 10:36] VITALS: BMI 22.8
--- NOTE | 2019-09-26 12:10 | CON.GI ---
Consult Consult Specialty:: GI: For Dr. Colon Referred by:: Dr. Regalado Reason for Consultation:: Abdominal pain - History of Present Illness Chief Complaint: Patient with back pain, flank pain History of Present Illness: 79F with persistent right sided / back / flank pain. Has had some work up in recent past for the abdominal complaints including CT scan of abdomen and pelvis at [facility] ED visit in July (no specific GI abnormalities noted); EGD at [facility] from -08/07 was noted in previous consultation with gastritis and hiatal hernia noted, otherwise normal. CT scan performed this admission revealed a large right 8.3cm renal cyst with peripheral calcifications, punctate calcifications in the pancreas. Previous US of abdomen/liver failed to reveal gallstones, GB wall thickening, or pericholecystic fluid and revealed CBD of 9.5 mm. She refused MRCP during last admission. She had abdominal MRI performed as an outpatient, ordered by her PMD Dr. Nash Kendrick. It revealed a 5mm hypodensity in the head of the pancreas, non dilated CBD and non dilated PD. She describes occasional constipation. - Past Medical History Cardio/Vascular: Yes: CAD (stents), CHF, HTN, Hyperlipdemia Pulmonary: Yes: Bronchitis. No: Cancer, O2 Dependent ...: No Endocrine: Yes: Diabetes Mellitus (type 2), Hypothyroidism - Past Surgical History Past Surgical History: Yes: - Alcohol/Substance Use Hx Alcohol Use: No History of Substance Use: reports: None - Smoking History Smoking history: Never smoked Have you smoked in the past 12 months: No Aproximately how many cigarettes per day: 0 - Social History ADL: Independent History of Recent Travel: No Home Medications - Allergies Allergies/Adverse Reactions: Allergies Allergy/AdvReac Type Severity Reaction Status Date / Time azithromycin [From Azasite] Allergy Verified 09/26/19 00:48 Penicillins Allergy passes out Verified 09/26/19 00:48 phenylephrine Allergy Verified 09/26/19 00:48 LOTEMAX Allergy Uncoded 09/26/19 00:48 NEOSYNEPH Allergy Uncoded 09/26/19 00:48 - Home Medications Home Medications: Ambulatory Orders Buspirone HCl [Buspar -] 5 mg PO BID 09/26/19 Esomeprazole Magnesium [Nexium 24Hr] 40 mg PO DAILY 09/26/19 Levothyroxine [Synthroid -] 75 mcg PO DAILY 09/26/19 Lorazepam [Ativan] 1 mg PO BID 09/26/19 Losartan/Hydrochlorothiazide [Hyzaar 100-25 Tablet] 1 each PO DAILY 09/26/19 Metoclopramide HCl [Reglan] 5 mg PO ACDIN 09/26/19 Oxybutynin Chloride [Ditropan Xl] 10 mg PO DAILY 09/26/19 Pregabalin [Lyrica] 25 mg PO BID 09/26/19 Review of Systems - Review of Systems Constitutional: denies: Chills Gastrointestinal: denies: Diarrhea, Melena, Nausea, Rectal Bleeding, Vomiting Physical Exam-GI Vital Signs: Vital Signs Temperature 98.1 F 09/26/19 10:22 Pulse Rate 66 09/26/19 10:22 Respiratory Rate 20 09/26/19 10:42 Blood Pressure 143/79 09/26/19 10:22 O2 Sat by Pulse Oximetry (%) 99 09/26/19 10:42 Constitutional: Yes: Calm Eyes: No: Sclera Icterus Cardiovascular: Yes: Regular Rate and Rhythm. No: Murmur Respiratory: Yes: CTA Bilaterally Gastrointestinal Inspection: Yes: Scars (pelvic surgical scar) ...Auscultate: Yes: Normoactive Bowel Sounds ...Palpate: Yes: Soft, Other (TTP along right paravertebrals, right anterior and posterior lower ribs). No: Tenderness (No abdominal tenderness noted) ...Percussion: No: Tympanitic Edema: No (No LE edema) Neurological: Yes: Alert Labs: CBC, BMP 09/26/19 03:14 09/26/19 03:14 INR, PTT INR 1.00 (0.83-1.09) 09/26/19 03:14 Hepatic Panel Total Bilirubin 0.6 mg/dL (0.2-1) 09/26/19 03:14 AST 21 U/L (15-37) 09/26/19 03:14 ALT 53 U/L (13-61) 09/26/19 03:14 Alkaline Phosphatase 89 U/L (45-117) 09/26/19 03:14 Albumin 3.9 g/dl (3.4-5.0) 09/26/19 03:14 Problem List - Problems (1) Chest wall pain Assessment/Plan: along right ribs along with reproducible mid/upper back pain. Suspect somatic in etiology as opposed to visecral from GI source. ? if related to back pathology. ? if related to the large right renal cyst noted on imaging. CT scan does show pancreatic calcifications and pancreatic atrophy, that can be consistent with chronic pancreatitis, however the pain described and tenderness elicited today not typical for pancreatitis pain. There is description of a small subcentimeter pancreatic cyst that will need outpatient follow-up. Her CBD is also not dilated Work-up of back pain / rib pain per PMD Consider urology evaluation of right renal cyst Advanced diet Obtain records from [facility] regarding recent endoscopic evaluation Follow-up with Dr. Colon as outpatient Code(s): R07.89 - OTHER CHEST PAIN
--- NOTE | 2019-09-26 13:54 | EKG ---
Test Reason : Blood Pressure : / mmHG Vent. Rate : 062 BPM Atrial Rate : 062 BPM P-R Int : 110 ms QRS Dur : 070 ms QT Int : 406 ms P-R-T Axes : -62 006 139 degrees QTc Int : 412 ms UNUSUAL P AXIS AND SHORT ND, PROBABLE JUNCTIONAL RHYTHM T WAVE ABNORMALITY, CONSIDER ANTEROLATERAL ISCHEMIA ABNORMAL ECG WHEN COMPARED WITH ECG OF 26-AUG-2019 16:58, PREMATURE VENTRICULAR COMPLEXES ARE NO LONGER PRESENT Confirmed by OSBALDO MUSTAFA MD ([id number]) on 09/26/2019 1:54:22 PM Referred By: Confirmed By:OSBALDO MUSTAFA MD
[2019-09-26] MEDS: PANTOPRAZOLE 40 MG TABLET (FP) PO SCH (16:56)
[2019-09-26] MEDS: DEXTROSE 5%-0.45% SALINE 1,000 ML IV SCH (17:08)
[2019-09-26] MEDS: LEVOTHYROXINE NA 75 MCG TABLET (FP) PO SCH (17:08)
[2019-09-26] MEDS: KETOROLAC TROMETHAMINE 30 MG/1 ML VIAL IM SCH (17:16)
[2019-09-26] MEDS: busPIRone HCL 5 MG TABLET PO SCH ×2 (19:29→21:10)
[2019-09-26] MEDS: PREGABALIN 25 MG CAPSULE PO SCH (21:10)
[2019-09-26] MEDS: LORazepam 1 MG TABLET PO SCH (21:10)
--- NOTE | 2019-09-26 23:44 | HP ---
Admitting History and Physical - Past Medical History Cardiovascular: Yes: CAD (stents), CHF, HTN, Hyperlipdemia Pulmonary: Yes: Bronchitis. No: Cancer, O2 Dependent ...: No Endocrine: Yes: Diabetes Mellitus (type 2), Hypothyroidism - Past Surgical History Past Surgical History: Yes: - Smoking History Smoking history: Never smoked Have you smoked in the past 12 months: No Aproximately how many cigarettes per day: 0 - Alcohol/Substance Use Hx Alcohol Use: No History of Substance Use: reports: None - Social History ADL: Independent History of Recent Travel: No Home Medications - Allergies Allergies/Adverse Reactions: Allergies Allergy/AdvReac Type Severity Reaction Status Date / Time azithromycin [From Azasite] Allergy Verified 09/26/19 00:48 Penicillins Allergy passes out Verified 09/26/19 00:48 phenylephrine Allergy Verified 09/26/19 00:48 LOTEMAX Allergy Uncoded 09/26/19 00:48 NEOSYNEPH Allergy Uncoded 09/26/19 00:48 - Home Medications Home Medications: Ambulatory Orders Buspirone HCl [Buspar -] 5 mg PO BID 09/26/19 Esomeprazole Magnesium [Nexium 24Hr] 40 mg PO DAILY 09/26/19 Levothyroxine [Synthroid -] 75 mcg PO DAILY 09/26/19 Lorazepam [Ativan] 1 mg PO BID 09/26/19 Losartan/Hydrochlorothiazide [Hyzaar 100-25 Tablet] 1 each PO DAILY 09/26/19 Metoclopramide HCl [Reglan] 5 mg PO ACDIN 09/26/19 Oxybutynin Chloride [Ditropan Xl] 10 mg PO DAILY 09/26/19 Pregabalin [Lyrica] 25 mg PO BID 09/26/19 Physical Examination Vital Signs: Vital Signs Temperature 98.0 F 09/26/19 19:26 Pulse Rate 60 09/26/19 19:26 Respiratory Rate 20 09/26/19 21:00 Blood Pressure 144/50 L 09/26/19 19:26 O2 Sat by Pulse Oximetry (%) 99 09/26/19 21:00 Labs: CBC, BMP 09/26/19 03:14 09/26/19 03:14
[2019-09-27] MEDS: KETOROLAC TROMETHAMINE 30 MG/1 ML VIAL IM SCH ×3 (01:19→18:05)
[2019-09-27] MEDS: LEVOTHYROXINE NA 75 MCG TABLET (FP) PO SCH (06:11)
[2019-09-27 07:58] LABS: HEMATOCRIT 38.2 % (32.4-45.2); HEMOGLOBIN 13.2 GM/dL (10.7-15.3); LYMPH % 33.9 % (8-40); MCHC 34.5 g/dl (32.0-36.0); MEAN CELL VOLUME 92.8 fl (80-96); MEAN PLT VOLUME 9.3 fl (7.5-11.1); MONO % 8.6 % (3.8-10.2); NEUT % 54.5 % (42.8-82.8); PLATELET COUNT 243 K/MM3 (134-434); RBC 4.12 M/mm3 (3.60-5.2); RDW 14.9 % (11.6-15.6); WHITE BLOOD COUNT 3.7 K/mm3 (4.0-10.0)
[2019-09-27 08:25] LABS: ALBUMIN 3.4 g/dl (3.4-5.0); BILIRUBIN,TOTAL 0.5 mg/dL (0.2-1); BLOOD UREA NITROGEN 11.8 mg/dL (7-18); CREATININE 0.9 mg/dL (0.55-1.3); POTASSIUM 4.1 mmol/L (3.5-5.1); TOT PROT 6.4 g/dl (6.4-8.2)
[2019-09-27] MEDS ORDERED: PT OWN MED DRAWER 7, Y5N ONE ×2 (09:21→21:42)
[2019-09-27] MEDS: LORazepam 1 MG TABLET PO SCH ×2 (09:29→22:01)
[2019-09-27] MEDS: LOSARTAN 50MG/HCTZ 12.5MG 1 TAB (FP) PO SCH (09:30)
[2019-09-27] MEDS: busPIRone HCL 5 MG TABLET PO SCH ×2 (09:31→22:01)
[2019-09-27] MEDS: PREGABALIN 25 MG CAPSULE PO SCH ×2 (09:32→22:01)
[2019-09-27] MEDS: PANTOPRAZOLE 40 MG TABLET (FP) PO SCH (09:32)
[2019-09-27] MEDS: DEXTROSE 5%-0.45% SALINE 1,000 ML IV SCH (12:53)
--- NOTE | 2019-09-27 22:26 | PN ---
Progress Note, Physician - Current Medication List Current Medications: Active Medications Buspirone HCl (Buspar -) 5 mg PO BID [facility] Last Admin: 09/27/19 22:01 Dose: 5 mg HCTZ/Losartan Potassium (Hyzaar -) 2 tab PO DAILY [facility] Last Admin: 09/27/19 09:30 Dose: 2 tab Dextrose/Sodium Chloride (D5-1/2ns -) 1,000 mls @ 75 mls/hr IV ASDIR [facility] Last Admin: 09/27/19 12:53 Dose: Not Given Ketorolac Tromethamine (Toradol Injection -) 30 mg IM Q8H-IV [facility] Stop: 10/01/19 17:59 Last Admin: 09/27/19 18:05 Dose: 30 mg Levothyroxine Sodium (Synthroid -) 75 mcg PO DAILY@0700 [facility] Last Admin: 09/27/19 06:11 Dose: 75 mcg Lorazepam (Ativan -) 1 mg PO BID [facility] Last Admin: 09/27/19 22:01 Dose: 1 mg Pantoprazole Sodium (Protonix -) 40 mg PO DAILY [facility] Last Admin: 09/27/19 09:32 Dose: 40 mg Pregabalin (Lyrica -) 25 mg PO BID [facility] Last Admin: 09/27/19 22:01 Dose: 25 mg - Objective Vital Signs: Vital Signs Temperature 98.1 F 09/27/19 20:29 Pulse Rate 64 09/27/19 20:29 Respiratory Rate 20 09/27/19 20:29 Blood Pressure 159/100 09/27/19 20:29 O2 Sat by Pulse Oximetry (%) 98 09/27/19 09:00 Labs: CBC, BMP 09/27/19 06:55 09/27/19 06:55 INR, PTT INR 1.00 (0.83-1.09) 09/26/19 03:14
[2019-09-28] MEDS: KETOROLAC TROMETHAMINE 30 MG/1 ML VIAL IM SCH ×3 (02:30→18:35)
[2019-09-28] MEDS ORDERED: PT OWN MED DRAWER 7, Y5N ONE ×2 (05:12→21:04)
[2019-09-28] MEDS ORDERED: LOSARTAN 50MG/HCTZ 12.5MG 1 TAB (FP) PO ONE (05:30)
[2019-09-28] MEDS: LEVOTHYROXINE NA 75 MCG TABLET (FP) PO SCH (06:01)
[2019-09-28] MEDS: PREGABALIN 25 MG CAPSULE PO SCH ×2 (10:04→21:41)
[2019-09-28] MEDS: LORazepam 1 MG TABLET PO SCH ×2 (10:04→21:41)
[2019-09-28] MEDS: PANTOPRAZOLE 40 MG TABLET (FP) PO SCH (10:04)
[2019-09-28] MEDS: busPIRone HCL 5 MG TABLET PO SCH ×2 (10:05→21:41)
[2019-09-28] MEDS: LOSARTAN 50MG/HCTZ 12.5MG 1 TAB (FP) PO SCH (10:05)
[2019-09-28] MEDS ORDERED: INSULIN (NOVOLOG) ASPART 100 UNITS/ML 10ML VIAL ONE (10:30)
[2019-09-28] MEDS: DEXTROSE 5%-0.45% SALINE 1,000 ML IV SCH (13:54)
--- NOTE | 2019-09-28 22:19 | PN ---
Progress Note, Physician History of Present Illness: Pt complains of Rt sided lower back pain/Rt flank/RLQ pain - Current Medication List Current Medications: Active Medications Buspirone HCl (Buspar -) 5 mg PO BID [facility] Last Admin: 09/28/19 21:41 Dose: 5 mg HCTZ/Losartan Potassium (Hyzaar -) 2 tab PO DAILY [facility] Last Admin: 09/28/19 10:05 Dose: 2 tab Dextrose/Sodium Chloride (D5-1/2ns -) 1,000 mls @ 75 mls/hr IV ASDIR [facility] Last Admin: 09/28/19 13:54 Dose: 75 mls/hr Ketorolac Tromethamine (Toradol Injection -) 30 mg IM Q8H-IV [facility] Stop: 10/01/19 17:59 Last Admin: 09/28/19 18:35 Dose: Not Given Levothyroxine Sodium (Synthroid -) 75 mcg PO DAILY@0700 [facility] Last Admin: 09/28/19 06:01 Dose: 75 mcg Lorazepam (Ativan -) 1 mg PO BID [facility] Last Admin: 09/28/19 21:41 Dose: 1 mg Pantoprazole Sodium (Protonix -) 40 mg PO DAILY [facility] Last Admin: 09/28/19 10:04 Dose: 40 mg Pregabalin (Lyrica -) 25 mg PO BID [facility] Last Admin: 09/28/19 21:41 Dose: 25 mg - Objective Vital Signs: Vital Signs Temperature 97.8 F 09/28/19 18:58 Pulse Rate 68 09/28/19 18:58 Respiratory Rate 20 09/28/19 18:58 Blood Pressure 152/80 09/28/19 18:58 O2 Sat by Pulse Oximetry (%) 98 09/28/19 09:00 Neck: Yes: WNL, Supple Cardiovascular: Yes: WNL, Regular Rate and Rhythm Respiratory: Yes: WNL, Regular, CTA Bilaterally Gastrointestinal: Yes: WNL, Normal Bowel Sounds, Soft Edema: No Labs: CBC, BMP 09/27/19 06:55 09/27/19 06:55 INR, PTT INR 1.00 (0.83-1.09) 09/26/19 03:14 Problem List - Problems (1) Abdominal pain Assessment/Plan: ?Musculoskeletal pain Cont lyrica Start phydical therapy Spoke at length w/ pt and her son and daughter Pt will need f/u of ct scan abd/pelvis in 3 months for pancreas f/u DC planning for am Code(s): R10.9 - UNSPECIFIED ABDOMINAL PAIN Qualifiers: Abdominal location: unspecified location Qualified Code(s): R10.9 - Unspecified abdominal pain (2) Diabetes mellitus, insulin dependent (IDDM), uncontrolled Assessment/Plan: Pt has not been compliant w/ medicatons at home Will give levemir while in hospital Code(s): E11.65 - TYPE 2 DIABETES MELLITUS WITH HYPERGLYCEMIA; Z79.4 - SNF (CURRENT) USE OF INSULIN (3) Hypothyroidism Assessment/Plan: Cont levothyroxine Code(s): E03.9 - HYPOTHYROIDISM, UNSPECIFIED Qualifiers: Hypothyroidism type: unspecified Qualified Code(s): E03.9 - Hypothyroidism , unspecified (4) Peripheral neuropathy Assessment/Plan: Cont lyrica Code(s): G62.9 - POLYNEUROPATHY, UNSPECIFIED (5) HTN (hypertension) Assessment/Plan: BP stable Cont losartan/hctz Code(s): I10 - ESSENTIAL (PRIMARY) HYPERTENSION (6) Anxiety and depression Assessment/Plan: Cont buspar Robbie decrease dose of lorazepam Code(s): F41.9 - ANXIETY DISORDER, UNSPECIFIED; F32.9 - MAJOR DEPRESSIVE DISORDER, SINGLE EPISODE, UNSPECIFIED
[2019-09-28] MEDS ORDERED: LORazepam 0.5 MG TABLET PO PRN (22:39)
[2019-09-28] MEDS ORDERED: INSULIN (LEVEMIR) 100 UNITS/ML UNITS SQ SCH (22:45)
[2019-09-28] MEDS: NAPROXEN 500 MG TABLET (FP) PO SCH (22:59)
[2019-09-29] MEDS: DOCUSATE SODIUM 100 MG CAPSULE (FP) PO SCH ×3 (06:57→21:23)
[2019-09-29] MEDS: LEVOTHYROXINE NA 75 MCG TABLET (FP) PO SCH (06:57)
[2019-09-29] MEDS ORDERED: ONDANSETRON 4 MG/2 ML VIAL IVPB PRN (07:58)
--- NOTE | 2019-09-29 08:36 | PN ---
Progress Note, Physician History of Present Illness: GI FOLLOW UP NOTE Patient examined and case discussed with Dr Colon Patient complains of RUQ pain radiating to R back accompanied with nausea and heartburn. Denies vomiting, diarrhea, rectal bleeding, melena. CTAP and ABdominal MRI from 09/24/19 reviewed. - Current Medication List Current Medications: Active Medications Buspirone HCl (Buspar -) 5 mg PO BID [facility] Last Admin: 09/28/19 21:41 Dose: 5 mg Docusate Sodium (Colace -) 100 mg PO TID [facility] Last Admin: 09/29/19 06:57 Dose: 100 mg HCTZ/Losartan Potassium (Hyzaar -) 2 tab PO DAILY [facility] Last Admin: 09/28/19 10:05 Dose: 2 tab Insulin Detemir (Levemir Vial) 25 units SQ HS [facility] Last Admin: 09/28/19 22:58 Dose: 25 units Levothyroxine Sodium (Synthroid -) 75 mcg PO DAILY@0700 [facility] Last Admin: 09/29/19 06:57 Dose: 75 mcg Lorazepam (Ativan -) 0.5 mg PO BID PRN PRN Reason: ANXIETY Naproxen (Naprosyn -) 500 mg PO BID [facility] Last Admin: 09/28/19 22:59 Dose: 500 mg Ondansetron HCl (Zofran Injection) 4 mg IVPB Q4H PRN PRN Reason: NAUSEA AND/OR VOMITING Pantoprazole Sodium (Protonix -) 40 mg PO DAILY [facility] Last Admin: 09/28/19 10:04 Dose: 40 mg Pregabalin (Lyrica -) 25 mg PO BID [facility] Last Admin: 09/28/19 21:41 Dose: 25 mg - Objective Vital Signs: Vital Signs Temperature 98.3 F 09/29/19 06:00 Pulse Rate 60 09/29/19 06:00 Respiratory Rate 20 09/29/19 06:00 Blood Pressure 147/76 09/29/19 06:00 O2 Sat by Pulse Oximetry (%) 98 09/28/19 09:00 Constitutional: Yes: No Distress, Calm Eyes: Yes: Conjunctiva Clear HENT: Yes: Atraumatic Cardiovascular: Yes: Regular Rate and Rhythm Respiratory: Yes: Regular, CTA Bilaterally Gastrointestinal: Yes: Normal Bowel Sounds, Soft, Tenderness (diffuse) Neurological: Yes: Alert, Oriented Psychiatric: Yes: Alert, Oriented Labs: CBC, BMP 09/27/19 06:55 09/27/19 06:55 INR, PTT INR 1.00 (0.83-1.09) 09/26/19 03:14 <Lori Cardona - Last Filed: 09/29/19 08:33> - Current Medication List Current Medications: Active Medications Buspirone HCl (Buspar -) 5 mg PO BID [facility] Last Admin: 09/29/19 11:49 Dose: Not Given Docusate Sodium (Colace -) 100 mg PO TID [facility] Last Admin: 09/29/19 13:26 Dose: Not Given HCTZ/Losartan Potassium (Hyzaar -) 2 tab PO DAILY [facility] Last Admin: 09/29/19 11:50 Dose: Not Given Sodium Chloride (Normal Saline -) 1,000 mls @ 150 mls/hr IV ASDIR [facility] Last Admin: 09/29/19 09:53 Dose: 150 mls/hr Insulin Detemir (Levemir Vial) 25 units SQ HS [facility] Last Admin: 09/28/19 22:58 Dose: 25 units Levothyroxine Sodium (Synthroid -) 75 mcg PO DAILY@0700 [facility] Last Admin: 09/29/19 06:57 Dose: 75 mcg Lorazepam (Ativan -) 0.5 mg PO BID PRN PRN Reason: ANXIETY Naproxen (Naprosyn -) 500 mg PO BID [facility] Last Admin: 09/29/19 09:54 Dose: 500 mg Ondansetron HCl (Zofran Injection) 4 mg IVPB Q4H PRN PRN Reason: NAUSEA AND/OR VOMITING Pantoprazole Sodium (Protonix -) 40 mg PO DAILY [facility] Last Admin: 09/29/19 09:54 Dose: 40 mg Pregabalin (Lyrica -) 25 mg PO BID [facility] Last Admin: 09/29/19 09:54 Dose: 25 mg - Objective Vital Signs: Vital Signs Temperature 98.3 F 09/29/19 10:05 Pulse Rate 67 09/29/19 10:05 Respiratory Rate 20 09/29/19 10:05 Blood Pressure 139/80 09/29/19 10:05 O2 Sat by Pulse Oximetry (%) 98 09/29/19 08:35 Labs: CBC, BMP 09/27/19 06:55 09/27/19 06:55 INR, PTT INR 1.00 (0.83-1.09) 09/26/19 03:14 <Eric Colon - Last Filed: 09/29/19 14:04> Problem List - Problems (1) Abdominal pain Assessment/Plan: >HIDA Scan with EF ordered to R/O Gallbladder Dyskinesia >NS at 150cc/hr >Zofran prn for nausea Code(s): R10.9 - UNSPECIFIED ABDOMINAL PAIN Qualifiers: Abdominal location: unspecified location Qualified Code(s): R10.9 - Unspecified abdominal pain <Lori Cardona - Last Filed: 09/29/19 08:33> - Problems (1) Chronic pancreatitis Assessment/Plan: calcifications by catscan--normal amylase and lipase Code(s): K86.1 - OTHER CHRONIC PANCREATITIS <Eric Colon - Last Filed: 09/29/19 14:04>
[2019-09-29] MEDS: SODIUM CHLORIDE 1,000 ML IV SCH (09:53)
[2019-09-29] MEDS: PANTOPRAZOLE 40 MG TABLET (FP) PO SCH (09:54)
[2019-09-29] MEDS: NAPROXEN 500 MG TABLET (FP) PO SCH ×2 (09:54→21:23)
[2019-09-29] MEDS: PREGABALIN 25 MG CAPSULE PO SCH ×2 (09:54→21:23)
[2019-09-29] MEDS ORDERED: INSULIN (NOVOLOG) ASPART 100 UNITS/ML 10ML VIAL ONE (11:44)
[2019-09-29] MEDS: busPIRone HCL 5 MG TABLET PO SCH ×2 (11:49→21:23)
[2019-09-29] MEDS: LOSARTAN 50MG/HCTZ 12.5MG 1 TAB (FP) PO SCH (11:50)
[2019-09-29] MEDS ORDERED: PT OWN MED DRAWER 7, Y5N ONE (21:07)
[2019-09-29] MEDS: INSULIN (LEVEMIR) 100 UNITS/ML UNITS SQ SCH (21:24)
--- NOTE | 2019-09-29 23:11 | PN ---
Progress Note, Physician - Current Medication List Current Medications: Active Medications Buspirone HCl (Buspar -) 5 mg PO BID [facility] Last Admin: 09/29/19 21:23 Dose: 5 mg Docusate Sodium (Colace -) 100 mg PO TID [facility] Last Admin: 09/29/19 21:23 Dose: 100 mg HCTZ/Losartan Potassium (Hyzaar -) 2 tab PO DAILY [facility] Last Admin: 09/29/19 11:50 Dose: Not Given Sodium Chloride (Normal Saline -) 1,000 mls @ 150 mls/hr IV ASDIR [facility] Last Admin: 09/29/19 09:53 Dose: 150 mls/hr Insulin Detemir (Levemir Vial) 35 units SQ HS [facility] Last Admin: 09/29/19 21:24 Dose: 35 units Levothyroxine Sodium (Synthroid -) 75 mcg PO DAILY@0700 [facility] Last Admin: 09/29/19 06:57 Dose: 75 mcg Lorazepam (Ativan -) 0.5 mg PO BID PRN PRN Reason: ANXIETY Naproxen (Naprosyn -) 500 mg PO BID [facility] Last Admin: 09/29/19 21:23 Dose: 500 mg Ondansetron HCl (Zofran Injection) 4 mg IVPB Q4H PRN PRN Reason: NAUSEA AND/OR VOMITING Pantoprazole Sodium (Protonix -) 40 mg PO DAILY [facility] Last Admin: 09/29/19 09:54 Dose: 40 mg Pregabalin (Lyrica -) 25 mg PO BID [facility] Last Admin: 09/29/19 21:23 Dose: 25 mg - Objective Vital Signs: Vital Signs Temperature 98.1 F 09/29/19 19:45 Pulse Rate 62 09/29/19 19:45 Respiratory Rate 20 09/29/19 19:45 Blood Pressure 150/68 09/29/19 19:45 O2 Sat by Pulse Oximetry (%) 98 09/29/19 08:35 Labs: CBC, BMP 09/27/19 06:55 09/27/19 06:55 INR, PTT INR 1.00 (0.83-1.09) 09/26/19 03:14 Problem List - Problems (1) Abdominal pain Code(s): R10.9 - UNSPECIFIED ABDOMINAL PAIN Qualifiers: Abdominal location: unspecified location Qualified Code(s): R10.9 - Unspecified abdominal pain (2) Diabetes mellitus, insulin dependent (IDDM), uncontrolled Code(s): E11.65 - TYPE 2 DIABETES MELLITUS WITH HYPERGLYCEMIA; Z79.4 - [facility] (CURRENT) USE OF INSULIN (3) Hypothyroidism Code(s): E03.9 - HYPOTHYROIDISM, UNSPECIFIED Qualifiers: Hypothyroidism type: unspecified Qualified Code(s): E03.9 - Hypothyroidism , unspecified (4) Peripheral neuropathy Code(s): G62.9 - POLYNEUROPATHY, UNSPECIFIED (5) HTN (hypertension) Code(s): I10 - ESSENTIAL (PRIMARY) HYPERTENSION (6) Anxiety and depression Code(s): F41.9 - ANXIETY DISORDER, UNSPECIFIED; F32.9 - MAJOR DEPRESSIVE DISORDER, SINGLE EPISODE, UNSPECIFIED
[2019-09-30] MEDS: DOCUSATE SODIUM 100 MG CAPSULE (FP) PO SCH ×3 (06:24→21:47)
[2019-09-30] MEDS: LEVOTHYROXINE NA 75 MCG TABLET (FP) PO SCH (06:24)
[2019-09-30] MEDS: INSULIN SLIDING SCALE (NOVOLOG) 1 VIAL SQ SCH ×4 (06:24→21:11)
[2019-09-30] MEDS ORDERED: PT OWN MED DRAWER 7, Y5N ONE (09:27)
[2019-09-30] MEDS ORDERED: INSULIN (NOVOLOG) ASPART 100 UNITS/ML 10ML VIAL ONE (09:39)
[2019-09-30] MEDS: SODIUM CHLORIDE 1,000 ML IV SCH ×2 (09:44→14:13)
[2019-09-30] MEDS: LOSARTAN 50MG/HCTZ 12.5MG 1 TAB (FP) PO SCH (09:45)
[2019-09-30] MEDS: PREGABALIN 25 MG CAPSULE PO SCH ×2 (09:45→21:46)
[2019-09-30] MEDS: NAPROXEN 500 MG TABLET (FP) PO SCH ×2 (09:45→21:47)
[2019-09-30] MEDS: busPIRone HCL 5 MG TABLET PO SCH ×2 (09:45→21:46)
[2019-09-30] MEDS: PANTOPRAZOLE 40 MG TABLET (FP) PO SCH (09:45)
[2019-09-30] MEDS: ACETAMINOPHEN 325 MG TABLET (FP) PO PRN (18:16)
[2019-09-30] MEDS: INSULIN (LEVEMIR) 100 UNITS/ML UNITS SQ SCH (21:19)
--- NOTE | 2019-09-30 22:00 | PN ---
Progress Note, Physician - Current Medication List Current Medications: Active Medications Acetaminophen (Tylenol -) 650 mg PO Q6H PRN PRN Reason: PAIN SCALE 3-10 Last Admin: 09/30/19 18:16 Dose: 650 mg Buspirone HCl (Buspar -) 5 mg PO BID [facility] Last Admin: 09/30/19 21:46 Dose: 5 mg Docusate Sodium (Colace -) 100 mg PO TID [facility] Last Admin: 09/30/19 21:47 Dose: 100 mg HCTZ/Losartan Potassium (Hyzaar -) 2 tab PO DAILY [facility] Last Admin: 09/30/19 09:45 Dose: 2 tab Insulin Aspart (Novolog Vial Sliding Scale -) 1 vial SQ ACHS [facility]; Protocol Last Admin: 09/30/19 21:11 Dose: 4 unit Insulin Detemir (Levemir Vial) 35 units SQ HS [facility] Last Admin: 09/30/19 21:19 Dose: 35 units Levothyroxine Sodium (Synthroid -) 75 mcg PO DAILY@0700 [facility] Last Admin: 09/30/19 06:24 Dose: 75 mcg Lorazepam (Ativan -) 0.5 mg PO BID PRN PRN Reason: ANXIETY Last Admin: 09/30/19 21:47 Dose: 0.5 mg Naproxen (Naprosyn -) 500 mg PO BID [facility] Last Admin: 09/30/19 21:47 Dose: 500 mg Ondansetron HCl (Zofran Injection) 4 mg IVPB Q4H PRN PRN Reason: NAUSEA AND/OR VOMITING Pantoprazole Sodium (Protonix -) 40 mg PO DAILY [facility] Last Admin: 09/30/19 09:45 Dose: 40 mg Pregabalin (Lyrica -) 25 mg PO BID [facility] Last Admin: 09/30/19 21:46 Dose: 25 mg - Objective Vital Signs: Vital Signs Temperature 98.1 F 09/30/19 19:57 Pulse Rate 64 09/30/19 19:57 Respiratory Rate 20 09/30/19 19:57 Blood Pressure 150/78 09/30/19 19:57 O2 Sat by Pulse Oximetry (%) 98 09/30/19 08:43 Labs: CBC, BMP 09/27/19 06:55 09/27/19 06:55 INR, PTT INR 1.00 (0.83-1.09) 09/26/19 03:14 Problem List - Problems (1) Abdominal pain Code(s): R10.9 - UNSPECIFIED ABDOMINAL PAIN Qualifiers: Abdominal location: unspecified location Qualified Code(s): R10.9 - Unspecified abdominal pain (2) Diabetes mellitus, insulin dependent (IDDM), uncontrolled Code(s): E11.65 - TYPE 2 DIABETES MELLITUS WITH HYPERGLYCEMIA; Z79.4 - [employer] (CURRENT) USE OF INSULIN (3) Hypothyroidism Code(s): E03.9 - HYPOTHYROIDISM, UNSPECIFIED Qualifiers: Hypothyroidism type: unspecified Qualified Code(s): E03.9 - Hypothyroidism , unspecified (4) Peripheral neuropathy Code(s): G62.9 - POLYNEUROPATHY, UNSPECIFIED (5) HTN (hypertension) Code(s): I10 - ESSENTIAL (PRIMARY) HYPERTENSION (6) Anxiety and depression Code(s): F41.9 - ANXIETY DISORDER, UNSPECIFIED; F32.9 - MAJOR DEPRESSIVE DISORDER, SINGLE EPISODE, UNSPECIFIED
[2019-10-01] MEDS: DOCUSATE SODIUM 100 MG CAPSULE (FP) PO SCH ×3 (06:35→22:03)
[2019-10-01] MEDS: LEVOTHYROXINE NA 75 MCG TABLET (FP) PO SCH (06:35)
[2019-10-01] MEDS: INSULIN SLIDING SCALE (NOVOLOG) 1 VIAL SQ SCH ×4 (06:38→22:01)
[2019-10-01] MEDS ORDERED: INSULIN (LEVEMIR) 100 UNITS/ML UNITS SQ ONE (07:03)
--- NOTE | 2019-10-01 07:34 | PN ---
Progress Note, Physician History of Present Illness: GI FOLLOW UP NOTE Patient examined and case discussed with Dr Colon Patient complains of abdominal pain, denies nausea, vomiting. HIDA scan with EF shows EF at 28% suggestive of gallbladder dyskinesia. Denies dysphagia, diarrhea, rectal bleeding, or melena. - Current Medication List Current Medications: Active Medications Acetaminophen (Tylenol -) 650 mg PO Q6H PRN PRN Reason: PAIN SCALE 3-10 Last Admin: 09/30/19 18:16 Dose: 650 mg Buspirone HCl (Buspar -) 5 mg PO BID [facility] Last Admin: 09/30/19 21:46 Dose: 5 mg Docusate Sodium (Colace -) 100 mg PO TID [facility] Last Admin: 10/01/19 06:35 Dose: 100 mg HCTZ/Losartan Potassium (Hyzaar -) 2 tab PO DAILY [facility] Last Admin: 09/30/19 09:45 Dose: 2 tab Insulin Aspart (Novolog Vial Sliding Scale -) 1 vial SQ [facility]; Protocol Last Admin: 10/01/19 06:38 Dose: Not Given Insulin Detemir (Levemir Vial) 35 units SQ HS [facility] Last Admin: 09/30/19 21:19 Dose: 35 units Levothyroxine Sodium (Synthroid -) 75 mcg PO DAILY@0700 [facility] Last Admin: 10/01/19 06:35 Dose: 75 mcg Lorazepam (Ativan -) 0.5 mg PO BID PRN PRN Reason: ANXIETY Last Admin: 09/30/19 21:47 Dose: 0.5 mg Naproxen (Naprosyn -) 500 mg PO BID [facility] Last Admin: 09/30/19 21:47 Dose: 500 mg Ondansetron HCl (Zofran Injection) 4 mg IVPB Q4H PRN PRN Reason: NAUSEA AND/OR VOMITING Pantoprazole Sodium (Protonix -) 40 mg PO DAILY [facility] Last Admin: 09/30/19 09:45 Dose: 40 mg Pregabalin (Lyrica -) 25 mg PO BID [facility] Last Admin: 09/30/19 21:46 Dose: 25 mg - Objective Vital Signs: Vital Signs Temperature 98.1 F 10/01/19 07:00 Pulse Rate 64 10/01/19 07:00 Respiratory Rate 20 10/01/19 07:00 Blood Pressure 147/75 10/01/19 07:00 O2 Sat by Pulse Oximetry (%) 98 09/30/19 22:22 Constitutional: Yes: No Distress, Calm Eyes: Yes: Conjunctiva Clear HENT: Yes: Atraumatic Cardiovascular: Yes: Regular Rate and Rhythm Respiratory: Yes: Regular, CTA Bilaterally Gastrointestinal: Yes: Normal Bowel Sounds, Soft, Tenderness (ruq, luq), Tenderness, Epigastrium Neurological: Yes: Alert, Oriented Psychiatric: Yes: Alert, Oriented Labs: CBC, BMP 09/27/19 06:55 09/27/19 06:55 INR, PTT INR 1.00 (0.83-1.09) 09/26/19 03:14 Problem List - Problems (1) Abdominal pain Assessment/Plan: >HIDA Scan with EF 28% suggestive of positive dyskinesia >Abdominal pain secondary to chronic cholecystitis >Surgical consult >Levaquin IVPB Code(s): R10.9 - UNSPECIFIED ABDOMINAL PAIN Qualifiers: Abdominal location: unspecified location Qualified Code(s): R10.9 - Unspecified abdominal pain
[2019-10-01] MEDS ORDERED: PT OWN MED DRAWER 7, Y5N ONE ×3 (09:40→21:05)
[2019-10-01] MEDS: ACETAMINOPHEN 325 MG TABLET (FP) PO PRN ×2 (09:46→18:53)
[2019-10-01] MEDS: PANTOPRAZOLE 40 MG TABLET (FP) PO SCH (09:47)
[2019-10-01] MEDS: LOSARTAN 50MG/HCTZ 12.5MG 1 TAB (FP) PO SCH (09:47)
[2019-10-01] MEDS: busPIRone HCL 5 MG TABLET PO SCH ×2 (09:47→22:02)
[2019-10-01] MEDS: PREGABALIN 25 MG CAPSULE PO SCH ×2 (09:47→22:03)
[2019-10-01] MEDS: NAPROXEN 500 MG TABLET (FP) PO SCH ×2 (09:47→22:02)
[2019-10-01] MEDS ORDERED: INSULIN (NOVOLOG) ASPART 100 UNITS/ML 10ML VIAL ONE (12:07)
--- NOTE | 2019-10-01 20:13 | CONSULT ---
Consult Consult Specialty:: Surgery Reason for Consultation:: biliary dyskinesia - History of Present Illness Chief Complaint: abdominal pain History of Present Illness: 79 yo F h/o DM htn hld CAD, CHF dilated cbd in the past, here with c/o right sided abd pain n/v. pt states threw up few times.all nonbloody nonbilious. no fevr or chills. no mod factors. ext wp no edema. no calf tenderness. no mod factors. had MRI two days ago to evaluate this pain. 09/26/19 06:26. Patient's symptoms has been on going for 8 months. EGD and colonoscopy were unremarkable and do not explain the cause of pain - History Source History Provided By: Patient, Family Member Limitations to Obtaining History: Language Barrier - Past Medical History Cardio/Vascular: Yes: CAD (stents), CHF, HTN, Hyperlipdemia Pulmonary: Yes: Bronchitis. No: Cancer, O2 Dependent Gastrointestinal: Yes: Constipation, Diverticulosis ...: No Endocrine: Yes: Diabetes Mellitus (type 2), Hypothyroidism - Past Surgical History Past Surgical History: Yes: - Alcohol/Substance Use Hx Alcohol Use: No History of Substance Use: reports: None - Smoking History Smoking history: Never smoked Have you smoked in the past 12 months: No Aproximately how many cigarettes per day: 0 - Social History ADL: Independent History of Recent Travel: No Home Medications - Allergies Allergies/Adverse Reactions: Allergies Allergy/AdvReac Type Severity Reaction Status Date / Time azithromycin [From Azasite] Allergy Verified 09/26/19 00:48 Penicillins Allergy passes out Verified 09/26/19 00:48 phenylephrine Allergy Verified 09/26/19 00:48 LOTEMAX Allergy Uncoded 09/26/19 00:48 NEOSYNEPH Allergy Uncoded 09/26/19 00:48 - Home Medications Home Medications: Ambulatory Orders Esomeprazole Magnesium [Nexium 24Hr] 40 mg PO DAILY 09/26/19 Levothyroxine [Synthroid -] 75 mcg PO DAILY 09/26/19 Lorazepam [Ativan] 1 mg PO BID 09/26/19 Losartan/Hydrochlorothiazide [Hyzaar 100-25 Tablet] 1 each PO DAILY 09/26/19 Oxybutynin Chloride [Ditropan Xl] 10 mg PO DAILY 09/26/19 Pregabalin [Lyrica] 25 mg PO BID 09/26/19 Insulin Degludec [Tresiba Flextouch U-200] 50 SQ DAILY 09/28/19 Physical Exam Vital Signs: Vital Signs Temperature 98.6 F 10/01/19 17:38 Pulse Rate 59 L 10/01/19 17:38 Respiratory Rate 20 10/01/19 17:38 Blood Pressure 142/76 10/01/19 17:38 O2 Sat by Pulse Oximetry (%) 99 10/01/19 09:00 Constitutional: Yes: Anxious Eyes: Yes: Conjunctiva Clear HENT: Yes: Normocephalic Neck: Yes: Supple Cardiovascular: Yes: Regular Rate and Rhythm Respiratory: Yes: CTA Bilaterally Gastrointestinal: Yes: Soft, Tenderness (mild at RUQ) ...Rectal Exam: Yes: Deferred Labs: CBC, BMP 09/27/19 06:55 09/27/19 06:55 Imaging - Results Cat Scan: Report Reviewed MRI: Report Reviewed Other: Report Reviewed, Image Reviewed, Other (HIDA SCAN WITH EF) Problem List - Problems (1) Abdominal pain Assessment/Plan: R/O biliary dyskinesia possible cholecystectomy on Sunday Code(s): R10.9 - UNSPECIFIED ABDOMINAL PAIN Qualifiers: Abdominal location: unspecified location Qualified Code(s): R10.9 - Unspecified abdominal pain
[2019-10-01] MEDS: INSULIN (LEVEMIR) 100 UNITS/ML UNITS SQ SCH (21:59)
--- NOTE | 2019-10-01 22:56 | PN ---
Progress Note, Physician - Current Medication List Current Medications: Active Medications Acetaminophen (Tylenol -) 650 mg PO Q6H PRN PRN Reason: PAIN SCALE 3-10 Last Admin: 10/01/19 18:53 Dose: 650 mg Buspirone HCl (Buspar -) 5 mg PO BID [facility] Last Admin: 10/01/19 22:02 Dose: 5 mg Docusate Sodium (Colace -) 100 mg PO TID [facility] Last Admin: 10/01/19 22:03 Dose: 100 mg HCTZ/Losartan Potassium (Hyzaar -) 2 tab PO DAILY [facility] Last Admin: 10/01/19 09:47 Dose: 2 tab Levofloxacin (Levaquin 500 Mg Premixed Ivpb -) 500 mg in 100 mls @ 100 mls/hr IVPB DAILY [facility]; Protocol Last Admin: 10/01/19 09:46 Dose: 100 mls/hr Insulin Aspart (Novolog Vial Sliding Scale -) 1 vial SQ ACHS [facility]; Protocol Last Admin: 10/01/19 22:01 Dose: 2 units Insulin Detemir (Levemir Vial) 35 units SQ HS [facility] Last Admin: 10/01/19 21:59 Dose: 35 units Levothyroxine Sodium (Synthroid -) 75 mcg PO DAILY@0700 [facility] Last Admin: 10/01/19 06:35 Dose: 75 mcg Naproxen (Naprosyn -) 500 mg PO BID [facility] Last Admin: 10/01/19 22:02 Dose: 500 mg Pantoprazole Sodium (Protonix -) 40 mg PO DAILY [facility] Last Admin: 10/01/19 09:47 Dose: 40 mg Pregabalin (Lyrica -) 25 mg PO BID [facility] Last Admin: 10/01/19 22:03 Dose: 25 mg - Objective Vital Signs: Vital Signs Temperature 98.6 F 10/01/19 17:38 Pulse Rate 59 L 10/01/19 17:38 Respiratory Rate 20 10/01/19 17:38 Blood Pressure 142/76 10/01/19 17:38 O2 Sat by Pulse Oximetry (%) 99 10/01/19 09:00 Labs: CBC, BMP 09/27/19 06:55 09/27/19 06:55 INR, PTT INR 1.00 (0.83-1.09) 09/26/19 03:14 Problem List - Problems (1) Abdominal pain Code(s): R10.9 - UNSPECIFIED ABDOMINAL PAIN Qualifiers: Abdominal location: unspecified location Qualified Code(s): R10.9 - Unspecified abdominal pain (2) Diabetes mellitus, insulin dependent (IDDM), uncontrolled Code(s): E11.65 - TYPE 2 DIABETES MELLITUS WITH HYPERGLYCEMIA; Z79.4 - [facility] (CURRENT) USE OF INSULIN (3) Hypothyroidism Code(s): E03.9 - HYPOTHYROIDISM, UNSPECIFIED Qualifiers: Hypothyroidism type: unspecified Qualified Code(s): E03.9 - Hypothyroidism , unspecified (4) Peripheral neuropathy Code(s): G62.9 - POLYNEUROPATHY, UNSPECIFIED (5) HTN (hypertension) Code(s): I10 - ESSENTIAL (PRIMARY) HYPERTENSION (6) Anxiety and depression Code(s): F41.9 - ANXIETY DISORDER, UNSPECIFIED; F32.9 - MAJOR DEPRESSIVE DISORDER, SINGLE EPISODE, UNSPECIFIED
[2019-10-02] MEDS: INSULIN SLIDING SCALE (NOVOLOG) 1 VIAL SQ SCH ×4 (06:10→21:24)
[2019-10-02] MEDS: DOCUSATE SODIUM 100 MG CAPSULE (FP) PO SCH ×3 (06:10→21:24)
[2019-10-02] MEDS: LEVOTHYROXINE NA 75 MCG TABLET (FP) PO SCH (06:10)
[2019-10-02] MEDS ORDERED: SODIUM PHOSPHATE/NA BIPHOS 133 ML ENEMA PR ONE (06:26)
[2019-10-02] MEDS ORDERED: MAGNESIUM CITRATE 300 ML BOTTLE PO ONE (07:48)
--- NOTE | 2019-10-02 07:48 | PN ---
Progress Note, Physician History of Present Illness: GI FOLLOW UP NOTE Patient examined and case discussed with Dr Colon Patient continues with complaints of abdominal pain, denies nausea, vomiting. HIDA scan with EF shows EF at 28% suggestive of gallbladder dyskinesia. Surgery consulted. Complains of constipation. Denies dysphagia, diarrhea, rectal bleeding, or melena. - Current Medication List Current Medications: Active Medications Acetaminophen (Tylenol -) 650 mg PO Q6H PRN PRN Reason: PAIN SCALE 3-10 Last Admin: 10/01/19 18:53 Dose: 650 mg Buspirone HCl (Buspar -) 5 mg PO BID [facility] Last Admin: 10/01/19 22:02 Dose: 5 mg Docusate Sodium (Colace -) 100 mg PO TID [facility] Last Admin: 10/02/19 06:10 Dose: 100 mg HCTZ/Losartan Potassium (Hyzaar -) 2 tab PO DAILY [facility] Last Admin: 10/01/19 09:47 Dose: 2 tab Levofloxacin (Levaquin 500 Mg Premixed Ivpb -) 500 mg in 100 mls @ 100 mls/hr IVPB DAILY [facility]; Protocol Last Admin: 10/01/19 09:46 Dose: 100 mls/hr Insulin Aspart (Novolog Vial Sliding Scale -) 1 vial SQ ACHS [facility]; Protocol Last Admin: 10/02/19 06:10 Dose: Not Given Insulin Detemir (Levemir Vial) 35 units SQ HS [facility] Last Admin: 10/01/19 21:59 Dose: 35 units Levothyroxine Sodium (Synthroid -) 75 mcg PO DAILY@0700 [facility] Last Admin: 10/02/19 06:10 Dose: 75 mcg Naproxen (Naprosyn -) 500 mg PO BID [facility] Last Admin: 10/01/19 22:02 Dose: 500 mg Pantoprazole Sodium (Protonix -) 40 mg PO DAILY [facility] Last Admin: 10/01/19 09:47 Dose: 40 mg Polyethylene Glycol (Miralax (For Daily Use) -) 17 gm PO DAILY [facility] Pregabalin (Lyrica -) 25 mg PO BID [facility] Last Admin: 10/01/19 22:03 Dose: 25 mg - Objective Vital Signs: Vital Signs Temperature 97.8 F 10/02/19 05:00 Pulse Rate 64 10/02/19 05:00 Respiratory Rate 20 10/02/19 05:00 Blood Pressure 117/75 11/14/19 05:00 O2 Sat by Pulse Oximetry (%) 99 10/01/19 09:00 Constitutional: Yes: No Distress, Calm Eyes: Yes: Conjunctiva Clear HENT: Yes: Atraumatic Cardiovascular: Yes: Regular Rate and Rhythm Respiratory: Yes: Regular, CTA Bilaterally Gastrointestinal: Yes: Normal Bowel Sounds, Soft, Tenderness (ruq/luq), Tenderness, Epigastrium Neurological: Yes: Alert, Oriented Psychiatric: Yes: Alert, Oriented Labs: CBC, BMP 09/27/19 06:55 09/27/19 06:55 INR, PTT INR 1.00 (0.83-1.09) 09/26/19 03:14 Problem List - Problems (1) Abdominal pain Assessment/Plan: >HIDA Scan with EF 28% suggestive of positive dyskinesia >Abdominal pain secondary to chronic cholecystitis >Surgery on board >possible cholecystectomy tomorrow >Levaquin IVPB Code(s): R10.9 - UNSPECIFIED ABDOMINAL PAIN Qualifiers: Abdominal location: unspecified location Qualified Code(s): R10.9 - Unspecified abdominal pain (2) Constipation Assessment/Plan: >Miralax daily >Citroma x 1 dose Code(s): K59.00 - CONSTIPATION, UNSPECIFIED
[2019-10-02 09:17] LABS: EOS % 0.8 % (0-4.5); HEMATOCRIT 39.8 % (32.4-45.2); HEMOGLOBIN 13.4 GM/dL (10.7-15.3); LYMPH % 27.1 % (8-40); MCH 31.3 pg (25.7-33.7); MCHC 33.8 g/dl (32.0-36.0); MEAN CELL VOLUME 92.7 fl (80-96); MEAN PLT VOLUME 9.9 fl (7.5-11.1); MONO % 6.7 % (3.8-10.2); NEUT % 64.4 % (42.8-82.8); PLATELET COUNT 255 K/MM3 (134-434); RBC 4.29 M/mm3 (3.60-5.2); RDW 14.8 % (11.6-15.6); WHITE BLOOD COUNT 4.1 K/mm3 (4.0-10.0)
[2019-10-02 09:48] LABS: ALBUMIN 4.1 g/dl (3.4-5.0); BILIRUBIN,TOTAL 0.5 mg/dL (0.2-1); BLOOD UREA NITROGEN 14.7 mg/dL (7-18); CALCIUM 9.5 mg/dL (8.5-10.1); POTASSIUM 3.6 mmol/L (3.5-5.1); TOT PROT 6.8 g/dl (6.4-8.2)
[2019-10-02] MEDS ORDERED: POLYETHYLENE GLYCOL 3350 119 GM BTL PO SCH (10:00)
--- NOTE | 2019-10-02 10:14 | CON.CARD ---
Consult Consult Specialty:: cardiology Reason for Consultation:: preop clearance - History of Present Illness Chief Complaint: Pt A&Ox3; no chest pain or dyspnea; + abdominal discomfort History of Present Illness: 79 yo F h/o DM htn hld CAD, CHF dilated cbd in the past, here with c/o right sided abd pain n/v. pt states threw up few times.all nonbloody nonbilious. no fevr or chills. no mod factors. ext wp no edema. no calf tenderness. no mod factors. had MRI two days ago to evaluate this pain. h/o hysterectomy, oopherectomy htn hld dm here with n/v abd pain. differential worsening cbd dilation, biliary obstruction, sbo, uti pyelo. plan ct ap labs ua zofran. - History Source History Provided By: Patient, Medical Record - Past Medical History Cardio/Vascular: Yes: CAD (stents), CHF, HTN, Hyperlipdemia Pulmonary: Yes: Bronchitis. No: Cancer, O2 Dependent ...: No Endocrine: Yes: Diabetes Mellitus (type 2), Hypothyroidism - Past Surgical History Past Surgical History: Yes: - Alcohol/Substance Use Hx Alcohol Use: No History of Substance Use: reports: None - Smoking History Smoking history: Never smoked Have you smoked in the past 12 months: No Aproximately how many cigarettes per day: 0 - Social History ADL: Independent History of Recent Travel: No Home Medications - Allergies Allergies/Adverse Reactions: Allergies Allergy/AdvReac Type Severity Reaction Status Date / Time azithromycin [From Azasite] Allergy Verified 09/26/19 00:48 Penicillins Allergy passes out Verified 09/26/19 00:48 phenylephrine Allergy Verified 09/26/19 00:48 LOTEMAX Allergy Uncoded 09/26/19 00:48 NEOSYNEPH Allergy Uncoded 09/26/19 00:48 - Home Medications Home Medications: Ambulatory Orders Esomeprazole Magnesium [Nexium 24Hr] 40 mg PO DAILY 09/26/19 Levothyroxine [Synthroid -] 75 mcg PO DAILY 09/26/19 Lorazepam [Ativan] 1 mg PO BID 09/26/19 Losartan/Hydrochlorothiazide [Hyzaar 100-25 Tablet] 1 each PO DAILY 09/26/19 Oxybutynin Chloride [Ditropan Xl] 10 mg PO DAILY 09/26/19 Pregabalin [Lyrica] 25 mg PO BID 09/26/19 Insulin Degludec [Tresiba Flextouch U-200] 50 SQ DAILY 09/28/19 Vital Signs: Vital Signs Temperature 97.8 F 10/02/19 05:00 Pulse Rate 64 10/02/19 05:00 Respiratory Rate 20 10/02/19 05:00 Blood Pressure 117/75 10/02/19 05:00 O2 Sat by Pulse Oximetry (%) 99 10/01/19 09:00 - Other Data Labs, Other Data: CBC, BMP 10/02/19 07:30 10/02/19 07:30 INR, PTT INR 1.00 (0.83-1.09) 09/26/19 03:14 Problem List - Problems (1) Abdominal pain Code(s): R10.9 - UNSPECIFIED ABDOMINAL PAIN Qualifiers: Abdominal location: unspecified location Qualified Code(s): R10.9 - Unspecified abdominal pain (2) Anxiety and depression Code(s): F41.9 - ANXIETY DISORDER, UNSPECIFIED; F32.9 - MAJOR DEPRESSIVE DISORDER, SINGLE EPISODE, UNSPECIFIED (3) HTN (hypertension) Code(s): I10 - ESSENTIAL (PRIMARY) HYPERTENSION (4) Diabetes Code(s): E11.9 - TYPE 2 DIABETES MELLITUS WITHOUT COMPLICATIONS (5) Hypertension Assessment/Plan: on losartan + HCTZ. ECHO: normal LVEF; mild LVH. Code(s): I10 - ESSENTIAL (PRIMARY) HYPERTENSION Qualifiers: Hypertension type: unspecified Qualified Code(s): I10 - Essential (primary ) hypertension (6) Hypothyroidism Assessment/Plan: Markedly abnormal in August; f/u repeat TFTs. Code(s): E03.9 - HYPOTHYROIDISM, UNSPECIFIED Qualifiers: Hypothyroidism type: unspecified Qualified Code(s): E03.9 - Hypothyroidism , unspecified (7) Hyperlipidemia Assessment/Plan: f/u TFTs; if corrected and lipids remain elevated, start statin. Code(s): E78.5 - HYPERLIPIDEMIA, UNSPECIFIED (8) Acute cholecystitis Assessment/Plan: Pt denies hx cardiac disease. No family hx OR. Pt was walking regularly, without chest pain or dyspnea, until several months ago, when she fell (tripped; no syncope) and injured her leg. Stress test "years ago" reportedly normal. ECHO today: normal LVEF. From a cardiac standpoint, there are no absolute contraindications for Ms. Jackson to undergo a cholecystectomy. Code(s): K81.0 - ACUTE CHOLECYSTITIS
[2019-10-02] MEDS ORDERED: PT OWN MED DRAWER 7, Y5N ONE ×2 (10:35→20:49)
[2019-10-02] MEDS: PREGABALIN 25 MG CAPSULE PO SCH ×2 (10:38→21:24)
[2019-10-02] MEDS: LOSARTAN 50MG/HCTZ 12.5MG 1 TAB (FP) PO SCH (10:38)
[2019-10-02] MEDS: busPIRone HCL 5 MG TABLET PO SCH ×2 (10:38→21:23)
[2019-10-02] MEDS: NAPROXEN 500 MG TABLET (FP) PO SCH ×2 (10:39→21:24)
[2019-10-02] MEDS: PANTOPRAZOLE 40 MG TABLET (FP) PO SCH (10:39)
--- NOTE | 2019-10-02 13:04 | ECHO ---
Name: NARGIS DAVID Exam:Adult Echocardiogram Study Date: 10/02/2019 09:54 AM Age: 79 yrs Reason For Study: Abnormal Ekg Height: 65 in Weight: 137 lb BSA: 1.7 m2 MMode/2D Measurements & Calculations IVSd: 1.5 cm Ao root diam: 2.3 cm LVIDd: 3.3 cm LA dimension: 3.4 cm LVIDs: 2.1 cm ACS: 1.7 cm LVPWd: 1.3 cm EDV(Teich): 45.2 ml LVOT diam: 1.9 cm ESV(Teich): 13.9 ml RV S Luis Armando: 16.9 cm/sec Doppler Measurements & Calculations MV E max luis armando: 43.9 cm/sec Ao V2 max: 125.1 cm/sec MV A max luis armando: 68.6 cm/sec Ao max P.3 mmHg MV E/A: 0.64 Ao V2 mean: 80.2 cm/sec MV dec time: 0.21 sec Ao mean P.0 mmHg Ao V2 VTI: 20.9 cm RAY(I,D): 1.8 cm2 ARY(V,D): 1.8 cm2 LV V1 max P.6 mmHg SV(LVOT): 36.9 ml LV V1 mean P.3 mmHg LV V1 max: 80.9 cm/sec LV V1 mean: 51.0 cm/sec LV V1 VTI: 13.3 cm TR max luis armando: 226.3 cm/sec Med Peak E' Luis Armando: 6.0 cm/sec TR max P.5 mmHg Med E/e': 7.3 RVSP(TR): 30.5 mmHg Lat Peak E' Luis Armando: 10.4 cm/sec Lat E/e': 4.2 RAP systole: 10.0 mmHg Procedure A complete two-dimensional transthoracic echocardiogram was performed (2D, M-mode, Doppler and color flow Doppler). Left Ventricle There is mild concentric left ventricular hypertrophy. The left ventricular ejection fraction is norm al. Ejection Fraction = 65-70%. The left ventricular wall motion is normal. Right Ventricle The right ventricle is normal in size and function. Atria Normal left and right atrial size and function. Mitral Valve There is no mitral regurgitation noted. Tricuspid Valve There is trace tricuspid regurgitation. There was insufficient TR detected to calculate RV systolic p ressure. Aortic Valve The aortic valve is trileaflet. No hemodynamically significant valvular aortic stenosis. No aortic regurgitation is present. Pulmonic Valve There is no pulmonic valvular regurgitation. Great Vessels The aortic root is normal size. Pericardium/Pleura There is no pericardial effusion. Interpretation Summary There is mild concentric left ventricular hypertrophy. The left ventricular ejection fraction is normal. The right ventricle is normal in size and function. There is trace tricuspid regurgitation. MD Manan Campbell 10/02/2019 01:04 PM
--- NOTE | 2019-10-02 14:45 | EKG ---
Test Reason : Blood Pressure : / mmHG Vent. Rate : 066 BPM Atrial Rate : 066 BPM P-R Int : 114 ms QRS Dur : 078 ms QT Int : 430 ms P-R-T Axes : -67 -03 128 degrees QTc Int : 450 ms SINUS RHYTHM T WAVE ABNORMALITY, CONSIDER LATERAL ISCHEMIA ABNORMAL ECG WHEN COMPARED WITH ECG OF 26-SEP-2019 02:57, T WAVE INVERSION LESS EVIDENT IN ANTERIOR LEADS Confirmed by ROSALIND UREÑA, BC ([id number]) on 10/02/2019 2:45:24 PM Referred By: Confirmed By:BC BOYER MD
[2019-10-02] MEDS ORDERED: INSULIN (NOVOLOG) ASPART 100 UNITS/ML 10ML VIAL ONE (17:57)
--- NOTE | 2019-10-02 19:47 | PN ---
Progress Note, Physician Chief Complaint: abdominal pain History of Present Illness: same complaints - Current Medication List Current Medications: Active Medications Acetaminophen (Tylenol -) 650 mg PO Q6H PRN PRN Reason: PAIN SCALE 3-10 Last Admin: 10/01/19 18:53 Dose: 650 mg Buspirone HCl (Buspar -) 5 mg PO BID [facility] Last Admin: 10/02/19 10:38 Dose: 5 mg Docusate Sodium (Colace -) 100 mg PO TID [facility] Last Admin: 10/02/19 13:42 Dose: 100 mg HCTZ/Losartan Potassium (Hyzaar -) 2 tab PO DAILY [facility] Last Admin: 10/02/19 10:38 Dose: 2 tab Levofloxacin (Levaquin 500 Mg Premixed Ivpb -) 500 mg in 100 mls @ 100 mls/hr IVPB DAILY [facility]; Protocol Last Admin: 10/02/19 10:39 Dose: 100 mls/hr Insulin Aspart (Novolog Vial Sliding Scale -) 1 vial SQ ACHS [facility]; Protocol Last Admin: 10/02/19 17:46 Dose: 2 units Insulin Detemir (Levemir Vial) 35 units SQ HS [facility] Last Admin: 10/01/19 21:59 Dose: 35 units Levothyroxine Sodium (Synthroid -) 75 mcg PO DAILY@0700 [facility] Last Admin: 10/02/19 06:10 Dose: 75 mcg Naproxen (Naprosyn -) 500 mg PO BID [facility] Last Admin: 10/02/19 10:39 Dose: 500 mg Pantoprazole Sodium (Protonix -) 40 mg PO DAILY [facility] Last Admin: 10/02/19 10:39 Dose: 40 mg Polyethylene Glycol (Miralax (For Daily Use) -) 17 gm PO DAILY [facility] Last Admin: 10/02/19 10:39 Dose: 17 gm Pregabalin (Lyrica -) 25 mg PO BID [facility] Last Admin: 10/02/19 10:38 Dose: 25 mg - Objective Vital Signs: Vital Signs Temperature 98.6 F 10/02/19 17:02 Pulse Rate 63 10/02/19 17:02 Respiratory Rate 20 10/02/19 17:02 Blood Pressure 136/77 10/02/19 17:02 O2 Sat by Pulse Oximetry (%) 99 10/01/19 09:00 Constitutional: Yes: No Distress Gastrointestinal: Yes: Normal Bowel Sounds, Soft Labs: CBC, BMP 10/02/19 07:30 10/02/19 07:30 INR, PTT INR 1.00 (0.83-1.09) 09/26/19 03:14 Problem List - Problems (1) Abdominal pain Assessment/Plan: biliary dyskinesia Explained to patient and daughter the unpredictability of symptom relief after cholecystectomy for biliary dyskinesia and the possibility of sphincter of Oddi dysfunction that may need to be treated post-op if pain persists or recurs. Patient understands and agrees to proceed with cholecystectomy - scheduled for am. Code(s): R10.9 - UNSPECIFIED ABDOMINAL PAIN Qualifiers: Abdominal location: unspecified location Qualified Code(s): R10.9 - Unspecified abdominal pain
[2019-10-02] MEDS: INSULIN (LEVEMIR) 100 UNITS/ML UNITS SQ SCH (21:24)
--- NOTE | 2019-10-02 23:58 | PN ---
Progress Note, Physician History of Present Illness: Pt still w/ RUQ pain - Current Medication List Current Medications: Active Medications Acetaminophen (Tylenol -) 650 mg PO Q6H PRN PRN Reason: PAIN SCALE 3-10 Last Admin: 10/01/19 18:53 Dose: 650 mg Buspirone HCl (Buspar -) 5 mg PO BID [facility] Last Admin: 10/02/19 21:23 Dose: 5 mg Docusate Sodium (Colace -) 100 mg PO TID [facility] Last Admin: 10/02/19 21:24 Dose: 100 mg HCTZ/Losartan Potassium (Hyzaar -) 2 tab PO DAILY [facility] Last Admin: 10/02/19 10:38 Dose: 2 tab Levofloxacin (Levaquin 500 Mg Premixed Ivpb -) 500 mg in 100 mls @ 100 mls/hr IVPB DAILY [facility]; Protocol Last Admin: 10/02/19 10:39 Dose: 100 mls/hr Insulin Aspart (Novolog Vial Sliding Scale -) 1 vial SQ ACHS [facility]; Protocol Last Admin: 10/02/19 21:24 Dose: Not Given Insulin Detemir (Levemir Vial) 35 units SQ HS [facility] Last Admin: 10/02/19 21:24 Dose: 35 units Levothyroxine Sodium (Synthroid -) 75 mcg PO DAILY@0700 [facility] Last Admin: 10/02/19 06:10 Dose: 75 mcg Naproxen (Naprosyn -) 500 mg PO BID [facility] Last Admin: 10/02/19 21:24 Dose: 500 mg Pantoprazole Sodium (Protonix -) 40 mg PO DAILY [facility] Last Admin: 10/02/19 10:39 Dose: 40 mg Polyethylene Glycol (Miralax (For Daily Use) -) 17 gm PO DAILY [facility] Last Admin: 10/02/19 10:39 Dose: 17 gm Pregabalin (Lyrica -) 25 mg PO BID [facility] Last Admin: 10/02/19 21:24 Dose: 25 mg - Objective Vital Signs: Vital Signs Temperature 98.4 F 10/02/19 23:00 Pulse Rate 62 10/02/19 23:00 Respiratory Rate 20 10/02/19 23:00 Blood Pressure 132/74 10/02/19 23:00 O2 Sat by Pulse Oximetry (%) 99 10/01/19 09:00 Neck: Yes: WNL, Supple Cardiovascular: Yes: WNL, Regular Rate and Rhythm Respiratory: Yes: WNL, Regular, CTA Bilaterally Gastrointestinal: Yes: WNL, Normal Bowel Sounds, Soft Labs: CBC, BMP 10/02/19 07:30 10/02/19 07:30 INR, PTT INR 1.00 (0.83-1.09) 09/26/19 03:14 Problem List - Problems (1) Abdominal pain Assessment/Plan: HIDA scan shows biliary dyskinesia Pt scheduled for cholecysectomy in am Pt is medically cleared for surgery Pt will need f/u of ct scan abd/pelvis in 3 months for pancreas f/u Code(s): R10.9 - UNSPECIFIED ABDOMINAL PAIN Qualifiers: Abdominal location: unspecified location Qualified Code(s): R10.9 - Unspecified abdominal pain (2) Diabetes mellitus, insulin dependent (IDDM), uncontrolled Assessment/Plan: Pt has not been compliant w/ medicatons at home Will give levemir while in hospital Code(s): E11.65 - TYPE 2 DIABETES MELLITUS WITH HYPERGLYCEMIA; 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
[2019-10-03] MEDS: INSULIN SLIDING SCALE (NOVOLOG) 1 VIAL SQ SCH ×3 (06:40→21:42)
[2019-10-03] MEDS: DOCUSATE SODIUM 100 MG CAPSULE (FP) PO SCH ×3 (06:40→21:41)
[2019-10-03] MEDS ORDERED: LEVOTHYROXINE NA 112 MCG TABLET (FP) PO SCH (07:00)
--- NOTE | 2019-10-03 08:00 | PN ---
Progress Note, Physician History of Present Illness: GI FOLLOW UP NOTE Patient examined and case discussed with Dr Colon Patient states abdominal pain is slightly better. Received Citroma x 1 dose yesterday with poor effect, only reports of small BM. She is NPO for cholecystectomy this morning. - Current Medication List Current Medications: Active Medications Acetaminophen (Tylenol -) 650 mg PO Q6H PRN PRN Reason: PAIN SCALE 3-10 Last Admin: 10/01/19 18:53 Dose: 650 mg Buspirone HCl (Buspar -) 5 mg PO BID [facility] Last Admin: 10/02/19 21:23 Dose: 5 mg Docusate Sodium (Colace -) 100 mg PO TID [facility] Last Admin: 10/03/19 06:40 Dose: 100 mg HCTZ/Losartan Potassium (Hyzaar -) 2 tab PO DAILY [facility] Last Admin: 10/02/19 10:38 Dose: 2 tab Levofloxacin (Levaquin 500 Mg Premixed Ivpb -) 500 mg in 100 mls @ 100 mls/hr IVPB DAILY [facility]; Protocol Last Admin: 10/02/19 10:39 Dose: 100 mls/hr Insulin Aspart (Novolog Vial Sliding Scale -) 1 vial SQ ACHS [facility]; Protocol Last Admin: 10/03/19 06:40 Dose: Not Given Insulin Detemir (Levemir Vial) 35 units SQ HS [facility] Last Admin: 10/02/19 21:24 Dose: 35 units Levothyroxine Sodium (Synthroid -) 112 mcg PO DAILY@0700 [facility] Last Admin: 10/03/19 06:40 Dose: 112 mcg Naproxen (Naprosyn -) 500 mg PO BID [facility] Last Admin: 10/02/19 21:24 Dose: 500 mg Pantoprazole Sodium (Protonix -) 40 mg PO DAILY [facility] Last Admin: 10/02/19 10:39 Dose: 40 mg Polyethylene Glycol (Miralax (For Daily Use) -) 17 gm PO DAILY [facility] Last Admin: 10/02/19 10:39 Dose: 17 gm Pregabalin (Lyrica -) 25 mg PO BID [facility] Last Admin: 10/02/19 21:24 Dose: 25 mg - Objective Vital Signs: Vital Signs Temperature 97.4 F L 10/03/19 07:03 Pulse Rate 58 L 10/03/19 07:03 Respiratory Rate 20 10/03/19 07:03 Blood Pressure 151/77 10/03/19 07:03 O2 Sat by Pulse Oximetry (%) 99 10/01/19 09:00 Constitutional: Yes: No Distress, Calm Eyes: Yes: Conjunctiva Clear HENT: Yes: Atraumatic Cardiovascular: Yes: Regular Rate and Rhythm Respiratory: Yes: Regular, CTA Bilaterally Gastrointestinal: Yes: Normal Bowel Sounds, Soft, Tenderness (ruq, luq), Tenderness, Epigastrium Neurological: Yes: Alert, Oriented Psychiatric: Yes: Alert, Oriented Labs: CBC, BMP 10/02/19 07:30 10/02/19 07:30 INR, PTT INR 1.00 (0.83-1.09) 09/26/19 03:14 Problem List - Problems (1) Abdominal pain Assessment/Plan: >HIDA Scan with EF 28% suggestive of positive dyskinesia >Abdominal pain secondary to chronic cholecystitis >Surgery on board >scheduled for cholecystectomy today >Levaquin IVPB Code(s): R10.9 - UNSPECIFIED ABDOMINAL PAIN Qualifiers: Abdominal location: unspecified location Qualified Code(s): R10.9 - Unspecified abdominal pain (2) Constipation Assessment/Plan: >Miralax daily >Citroma x 1 dose given with poor effect >FUA ordered to R/O Fecal impaction Code(s): K59.00 - CONSTIPATION, UNSPECIFIED
[2019-10-03 09:26] LABS: MAGNESIUM 2.6 mg/dL (1.8-2.4)
[2019-10-03] MEDS ORDERED: PT OWN MED DRAWER 7, Y5N ONE ×2 (09:46→20:04)
[2019-10-03] MEDS ORDERED: BUPIVACAINE HCL/PF 0.5% (5 MG/ML) 30 ML VIAL IJ ONE ×3 (09:58→11:16)
[2019-10-03] MEDS ORDERED: PROPOFOL 20 ML ONE ×4 (10:26→13:29)
[2019-10-03] MEDS ORDERED: fentaNYL CITRATE 250 MCG/5 ML VIAL ONE (10:26)
[2019-10-03] MEDS ORDERED: ROCURONIUM BROMIDE 50 MG/5 ML SYRINGE ONE ×2 (10:27→13:30)
[2019-10-03] MEDS ORDERED: MIDAZOLAM HCL 2 MG/2 ML SINGLE DOSE VIAL ONE (10:29)
[2019-10-03] MEDS ORDERED: ePHEDrine SULFATE 50 MG/1 ML AMPULE ONE ×2 (10:45→11:25)
[2019-10-03] MEDS ORDERED: NEOSTIGMINE METHYLSULFATE 0.5 MG/ML - 10 ML MDV ONE ×2 (11:59)
--- NOTE | 2019-10-03 12:11 | OP ---
Operative Note - Note: Operative Date: 10/03/19 Pre-Operative Diagnosis: Biliary dyskinesia Operation: Laparoscopic cholecystectomy, GONZALEZ Findings: distended and floppy GB, dense omental adhesions to the GB Post-Operative Diagnosis: Other (ADHESIONS) Surgeon: Hernandez Anthony Marketing Mgr: Ashley Burgess Anesthesia: General Specimens Removed: GB Estimated Blood Loss (mls): 3 Operative Report Dictated: Yes
[2019-10-03] MEDS ORDERED: ONDANSETRON 4 MG/2 ML VIAL IVPUSH PRN (12:20)
[2019-10-03] MEDS ORDERED: hydrALAZINE HCL 20 MG/ML VIAL ONE (12:21)
[2019-10-03] MEDS: hydrALAZINE HCL 20 MG/ML VIAL IM ONE ×2 (12:25→19:19)
[2019-10-03] MEDS ORDERED: oxyCODONE HCL 5 MG TABLET PO PRN ×2 (12:26)
--- NOTE | 2019-10-03 12:41 | OP ---
DATE OF OPERATION: 10/03/2019 PROCEDURE: Laparoscopic cholecystectomy and lysis of adhesions. PREOPERATIVE DIAGNOSIS: Biliary dyskinesia. POSTOPERATIVE DIAGNOSES: 1. Biliary dyskinesia. 2. Intraabdominal adhesions. SURGEON: Hernandez Anthony MD CERTIFIED NURSING ATTENDANT: Ashley Burgess PA-C ANESTHESIA: General endotracheal. FINDINGS AND PROCEDURE: This is a 79-year-old female who presents with 8 months history of intermittent right upper quadrant pain radiating to the back for which extensive workup consisting of ultrasound, CAT scan of the abdomen and pelvis, MRI, upper endoscopy and colonoscopy revealed no gallstones, but slightly distended gallbladder, no thickened avina, normal size common duct and a large renal cyst. A Urology evaluation was done, which she was advised no intervention, as the patient is asymptomatic in terms of the right renal cyst. Patient was admitted on September 26, 2019 for severe right upper quadrant pain. A HIDA scan with ejection fraction this time revealed low gallbladder ejection fraction of 28%. On physical exam, patient had mild right upper quadrant tenderness and a soft abdomen, so the patient was advised removal of the gallbladder as no other cause of the pain was identified. Patient was also advised that removal of the gallbladder does not guarantee relief of the symptoms, as the patient may have sphincter of Oddi dysfunction. Patient agreed to the procedure and consent was obtained. Patient was brought to the operating room and placed in supine position. General endotracheal anesthesia was administered. The abdomen was prepped and draped in the usual sterile fashion. Using 0.5% Marcaine, local anesthesia was administered to the proposed incision site. The peritoneal cavity was entered using the Optiview technique via a 5 mm umbilical incision using a 5 mm 0-degree scope inserted in the 5 mm optical port. Pneumoperitoneum was established. The peritoneal cavity was carefully inspected and was noted to be free of inadvertent injury. Patient was placed in reverse Trendelenburg left side down position and a 12 mm blunt port was inserted at the subxiphoid region and two 5 mm ports were placed at the subcostal region at the midclavicular and anterior axillary line. The gallbladder was identified and was noted to be distended with moderate amount of omental adhesions. The gallbladder fundus was grasped and retracted anteriorly and the dense omental adhesions were taken down using the laparoscopic hook dissector connected to monopolar cautery. The infundibulum was finally visualized and grasped to be retracted inferior laterally. The distal peritoneum covering the hepatocystic triangle was scored using the hook dissector towards the gallbladder bed. A window was created between the gallbladder bed and the proximal gallbladder wall to create the critical view of safety. The cystic duct and cystic artery were isolated using the [place] dissector and both structures were clipped at 3 points, followed by transection, leaving 2 clips at the cystic duct and cystic artery stumps. The gallbladder was then resected from its bed in antegrade fashion using the hook dissector connected to monopolar cautery. After this was done, the gallbladder was placed in an Endo bag and extracted via the subxiphoid incision. The gallbladder bed was inspected and was noted to be free of active bleeding. The pneumoperitoneum was evacuated and the ports were removed. The subxiphoid incision was closed with one figure-of-8 Vicryl 0 suture for the fascia and the skin was closed with subcuticular Biosyn 4-0 sutures. The wound closure was reinforced with Dermabond. The patient was successfully extubated and transferred to the post anesthesia care unit in satisfactory condition. The estimated blood loss was about 3 mL. WOUND CLASS: Clean contaminated. The patient was already on antibiotics since admission. Wilbur [id number] MTDD
--- NOTE | 2019-10-03 12:51 | SURG ---
Surgery Logistics Service Representative Note Logistics Service Representative: Ashley Burgess PA-C Date of Service: 10/03/19 Diagnosis: Biliary dyskinesia Procedure: Laparoscopic cholecystectomy, GONZALEZ I was present for the entirety of the operative procedure. For further detail, please refer to operative report. Visit type - Case Type Case Type: ED Admission - Emergency Emergency Visit: Yes ED Registration Date: 09/26/19 Care time: The patient presented to the Emergency Department on the above date and was hospitalized for further evaluation of their emergent condition. - New patient This patient is new to me today: Yes Date on this admission: 10/03/19
[2019-10-03] MEDS ORDERED: SUCCINYLCHOLINE CHLORIDE 200 MG/10 ML SYRINGE ONE (13:29)
[2019-10-03] MEDS ORDERED: ACETAMINOPHEN INJECTION 100 ML IVPB ONE (14:01)
[2019-10-03] MEDS: ACETAMINOPHEN 1000 MG/100 ML VIAL (NON FORMULARY) IVPB SCH ×2 (14:05→21:40)
[2019-10-03] MEDS: SODIUM CHLORIDE 1,000 ML IV SCH (15:14)
[2019-10-03] MEDS ORDERED: INSULIN (NOVOLOG) ASPART 100 UNITS/ML 10ML VIAL ONE (19:24)
[2019-10-03] MEDS: busPIRone HCL 5 MG TABLET PO SCH (21:41)
[2019-10-03] MEDS: INSULIN (LEVEMIR) 100 UNITS/ML UNITS SQ SCH (21:41)
[2019-10-03] MEDS: NAPROXEN 500 MG TABLET (FP) PO SCH (21:42)
[2019-10-03] MEDS: PREGABALIN 25 MG CAPSULE PO SCH (21:42)
--- NOTE | 2019-10-03 22:01 | PN ---
Progress Note, Physician - Current Medication List Current Medications: Active Medications Acetaminophen (Ofirmev Injection -) 1,000 mg IVPB Q6H [facility] Stop: 10/04/19 06:46 Last Admin: 10/03/19 21:40 Dose: 1,000 mg Buspirone HCl (Buspar -) 5 mg PO BID [facility] Last Admin: 10/03/19 21:41 Dose: 5 mg Docusate Sodium (Colace -) 100 mg PO TID [facility] Last Admin: 10/03/19 21:41 Dose: 100 mg HCTZ/Losartan Potassium (Hyzaar -) 2 tab PO DAILY [facility] Sodium Chloride (Normal Saline -) 1,000 mls @ 100 mls/hr IV ASDIR [facility] Last Admin: 10/03/19 15:14 Dose: Not Given Levofloxacin (Levaquin 500 Mg Premixed Ivpb -) 500 mg in 100 mls @ 100 mls/hr IVPB DAILY [facility]; Protocol Insulin Aspart (Novolog Vial Sliding Scale -) 1 vial SQ ACHS [facility]; Protocol Last Admin: 10/03/19 21:42 Dose: 4 units Insulin Detemir (Levemir Vial) 35 units SQ HS [facility] Last Admin: 10/03/19 21:41 Dose: 35 units Levothyroxine Sodium (Synthroid -) 112 mcg PO DAILY@0700 [facility] Naproxen (Naprosyn -) 500 mg PO BID [facility] Last Admin: 10/03/19 21:42 Dose: 500 mg Pantoprazole Sodium (Protonix -) 40 mg PO DAILY [facility] Polyethylene Glycol (Miralax (For Daily Use) -) 17 gm PO DAILY [facility] Pregabalin (Lyrica -) 25 mg PO BID [facility] Last Admin: 10/03/19 21:42 Dose: 25 mg - Objective Vital Signs: Vital Signs Temperature 97.2 F L 10/03/19 17:04 Pulse Rate 84 10/03/19 17:04 Respiratory Rate 20 10/03/19 17:04 Blood Pressure 110/67 10/03/19 17:04 O2 Sat by Pulse Oximetry (%) 99 10/03/19 14:55 Labs: CBC, BMP 10/02/19 07:30 10/02/19 07:30 INR, PTT INR 1.00 (0.83-1.09) 09/26/19 03:14 Problem List - Problems (1) Abdominal pain Code(s): R10.9 - UNSPECIFIED ABDOMINAL PAIN Qualifiers: Abdominal location: unspecified location Qualified Code(s): R10.9 - Unspecified abdominal pain (2) Diabetes mellitus, insulin dependent (IDDM), uncontrolled Code(s): E11.65 - TYPE 2 DIABETES MELLITUS WITH HYPERGLYCEMIA; Z79.4 - CARE HOME (CURRENT) USE OF INSULIN (3) Hypothyroidism Code(s): E03.9 - HYPOTHYROIDISM, UNSPECIFIED Qualifiers: Hypothyroidism type: unspecified Qualified Code(s): E03.9 - Hypothyroidism , unspecified (4) Peripheral neuropathy Code(s): G62.9 - POLYNEUROPATHY, UNSPECIFIED (5) HTN (hypertension) Code(s): I10 - ESSENTIAL (PRIMARY) HYPERTENSION (6) Anxiety and depression Code(s): F41.9 - ANXIETY DISORDER, UNSPECIFIED; F32.9 - MAJOR DEPRESSIVE DISORDER, SINGLE EPISODE, UNSPECIFIED
--- NOTE | 2019-10-04 00:45 | CONSULT ---
Consult Consult Specialty:: endocrine Referred by:: molly graham M.D. Reason for Consultation:: hypothyroidism - History of Present Illness Chief Complaint: weak and tired easily History of Present Illness: 79y female,pmh hypothyroidism,,htn,ashd,cad,admitted with recurrent ruq abdominal pain,found to have hypodensity on mri abdomen,has felt weak and easily tired,memory loss,and cosntipation.she is compliant with thyroid medication but her dose has been changed recently due to poor appetite. - Past Medical History Cardio/Vascular: Yes: CAD (stents), CHF, HTN, Hyperlipdemia Pulmonary: Yes: Bronchitis. No: Cancer, O2 Dependent Gastrointestinal: Yes: Constipation, Diverticulosis ...: No Endocrine: Yes: Diabetes Mellitus (type 2), Hypothyroidism - Past Surgical History Past Surgical History: Yes: - Alcohol/Substance Use Hx Alcohol Use: No History of Substance Use: reports: None - Smoking History Smoking history: Never smoked Have you smoked in the past 12 months: No Aproximately how many cigarettes per day: 0 - Social History ADL: Independent History of Recent Travel: No Home Medications - Allergies Allergies/Adverse Reactions: Allergies Allergy/AdvReac Type Severity Reaction Status Date / Time azithromycin [From Azasite] Allergy Verified 09/26/19 00:48 Penicillins Allergy passes out Verified 09/26/19 00:48 phenylephrine Allergy Verified 09/26/19 00:48 LOTEMAX Allergy Uncoded 09/26/19 00:48 NEOSYNEPH Allergy Uncoded 09/26/19 00:48 - Home Medications Home Medications: Ambulatory Orders Esomeprazole Magnesium [Nexium 24Hr] 40 mg PO DAILY 09/26/19 Levothyroxine [Synthroid -] 75 mcg PO DAILY 09/26/19 Lorazepam [Ativan] 1 mg PO BID 09/26/19 Losartan/Hydrochlorothiazide [Hyzaar 100-25 Tablet] 1 each PO DAILY 09/26/19 Oxybutynin Chloride [Ditropan Xl] 10 mg PO DAILY 09/26/19 Pregabalin [Lyrica] 25 mg PO BID 09/26/19 Insulin Degludec [Tresiba Flextouch U-200] 50 SQ DAILY 09/28/19 Review of Systems - Review of Systems Constitutional: reports: Lethargy, Weakness Eyes: reports: No Symptoms HENT: reports: No Symptoms Neck: reports: No Symptoms Cardiovascular: reports: Shortness of Breath Respiratory: reports: Exercise Intolerance, SOB on Exertion Gastrointestinal: reports: Abdominal Pain, Bloating Genitourinary: reports: No Symptoms Breasts: reports: No Symptoms Reported Musculoskeletal: reports: No Symptoms Neurological: reports: Weakness Physical Exam Vital Signs: Vital Signs Temperature 98.0 F 10/03/19 23:00 Pulse Rate 76 10/03/19 23:00 Respiratory Rate 20 10/03/19 23:00 Blood Pressure 118/74 10/03/19 23:00 O2 Sat by Pulse Oximetry (%) 99 10/03/19 14:55 Constitutional: Yes: Calm Eyes: Yes: EOM Intact HENT: Yes: Normocephalic Neck: Yes: Trachea Midline Cardiovascular: Yes: Regular Rate and Rhythm Respiratory: Yes: CTA Bilaterally Gastrointestinal: Yes: Hypoactive Bowel Sounds ...Rectal Exam: Yes: Deferred Renal/: Yes: WNL Musculoskeletal: Yes: WNL Extremities: Yes: WNL Edema: No Neurological: Yes: Alert, Oriented Labs: CBC, BMP 10/02/19 07:30 10/02/19 07:30 Problem List - Problems (1) Other specified hypothyroidism Problems reviewed: Yes Code(s): E03.8 - OTHER SPECIFIED HYPOTHYROIDISM (2) Abdominal pain Problems reviewed: Yes Code(s): R10.9 - UNSPECIFIED ABDOMINAL PAIN Qualifiers: Abdominal location: unspecified location Qualified Code(s): R10.9 - Unspecified abdominal pain (3) Acute cholecystitis Problems reviewed: Yes Code(s): K81.0 - ACUTE CHOLECYSTITIS (4) Chronic pancreatitis Code(s): K86.1 - OTHER CHRONIC PANCREATITIS (5) HTN (hypertension) Code(s): I10 - ESSENTIAL (PRIMARY) HYPERTENSION (6) Hyperlipidemia Code(s): E78.5 - HYPERLIPIDEMIA, UNSPECIFIED (7) Peripheral neuropathy Code(s): G62.9 - POLYNEUROPATHY, UNSPECIFIED Assessment/Plan Current Active Problems hypothyroidism dmT2 Abdominal pain (Acute) Acute cholecystitis (Acute) Anxiety and depression (Acute) Chronic pancreatitis (Acute) Constipation (Acute) HTN (hypertension) (Acute) Hyperlipidemia (Acute) Peripheral neuropathy (Acute) Abnormal Lab Results 10/03/19 06:20 Magnesium 2.6 H TSH 60.50 H Laboratory Results - last 24 hr 10/03/19 10/03/19 10/03/19 06:20 06:34 14:06 POC Glucometer 68 139 Magnesium 2.6 H TSH 60.50 H 10/03/19 10/03/19 16:50 21:34 POC Glucometer 199 240 Magnesium TSH Laboratory Tests 08/26/19 08/28/19 10/02/19 20:17 00:00 07:30 Sodium 140 Potassium 3.6 Chloride 102 Carbon Dioxide 29 Anion Gap 8 BUN 14.7 Creatinine 1.0 Est GFR (CKD-EPI)AfAm 62.93 POC Glucometer Hemoglobin A1c % 12.9 H TSH 95.70 H Free T4 0.71 L 10/02/19 11:21 Sodium Potassium Chloride Carbon Dioxide Anion Gap BUN Creatinine Est GFR (CKD-EPI)AfAm POC Glucometer 123 Hemoglobin A1c % TSH Free T4 plan: bgm achs synthroid 150mcg daily ck hba1c
[2019-10-04] MEDS: ACETAMINOPHEN 1000 MG/100 ML VIAL (NON FORMULARY) IVPB SCH ×2 (04:18→06:58)
[2019-10-04] MEDS: DOCUSATE SODIUM 100 MG CAPSULE (FP) PO SCH ×3 (06:58→21:55)
[2019-10-04] MEDS: LEVOTHYROXINE NA 150 MCG TABLET PO SCH (06:58)
[2019-10-04] MEDS: INSULIN SLIDING SCALE (NOVOLOG) 1 VIAL SQ SCH ×4 (06:58→21:56)
[2019-10-04] MEDS ORDERED: LEVOTHYROXINE NA 112 MCG TABLET (FP) PO SCH (07:00)
[2019-10-04] MEDS: PANTOPRAZOLE 40 MG TABLET (FP) PO SCH (09:13)
[2019-10-04] MEDS: PREGABALIN 25 MG CAPSULE PO SCH ×2 (09:13→21:55)
[2019-10-04] MEDS: NAPROXEN 500 MG TABLET (FP) PO SCH ×2 (09:14→21:55)
[2019-10-04] MEDS: busPIRone HCL 5 MG TABLET PO SCH ×2 (09:15→21:56)
[2019-10-04] MEDS: LOSARTAN 50MG/HCTZ 12.5MG 1 TAB (FP) PO SCH (09:15)
[2019-10-04] MEDS: POLYETHYLENE GLYCOL 3350 119 GM BTL PO SCH (09:16)
[2019-10-04] MEDS: SODIUM CHLORIDE 1,000 ML IV SCH ×2 (09:58→14:45)
--- NOTE | 2019-10-04 11:36 | PN ---
Progress Note (short form) - Note Progress Note: Anesthessia post op note, POD#1 S/P Laparoscopic cholecystectomy under GA. VSS. AAOX3, no apparent post anesthesia complications.
--- NOTE | 2019-10-04 15:08 | PN ---
Progress Note, Physician Chief Complaint: abdominal pain History of Present Illness: POD # 1 S/P Laparoscopic cholecystectomy Patient notes less pain and feels better other than port site pain - Current Medication List Current Medications: Active Medications Buspirone HCl (Buspar -) 5 mg PO BID [facility] Last Admin: 10/04/19 09:15 Dose: 5 mg Docusate Sodium (Colace -) 100 mg PO TID [facility] Last Admin: 10/04/19 14:45 Dose: 100 mg HCTZ/Losartan Potassium (Hyzaar -) 2 tab PO DAILY [facility] Last Admin: 10/04/19 09:15 Dose: 2 tab Sodium Chloride (Normal Saline -) 1,000 mls @ 100 mls/hr IV ASDIR [facility] Last Admin: 10/04/19 14:45 Dose: Not Given Levofloxacin (Levaquin 500 Mg Premixed Ivpb -) 500 mg in 100 mls @ 100 mls/hr IVPB DAILY [facility]; Protocol Last Admin: 10/04/19 09:16 Dose: 100 mls/hr Insulin Aspart (Novolog Vial Sliding Scale -) 1 vial SQ ACHS [facility]; Protocol Last Admin: 10/04/19 12:48 Dose: Not Given Insulin Detemir (Levemir Vial) 35 units SQ HS [facility] Last Admin: 10/03/19 21:41 Dose: 35 units Levothyroxine Sodium (Synthroid -) 150 mcg PO DAILY@0700 [facility] Last Admin: 10/04/19 06:58 Dose: 150 mcg Naproxen (Naprosyn -) 500 mg PO BID [facility] Last Admin: 10/04/19 09:14 Dose: 500 mg Pantoprazole Sodium (Protonix -) 40 mg PO DAILY [facility] Last Admin: 10/04/19 09:13 Dose: 40 mg Polyethylene Glycol (Miralax (For Daily Use) -) 17 gm PO DAILY [facility] Last Admin: 10/04/19 09:16 Dose: 17 gm Pregabalin (Lyrica -) 25 mg PO BID [facility] Last Admin: 10/04/19 09:13 Dose: 25 mg - Objective Vital Signs: Vital Signs Temperature 98.4 F 10/04/19 09:00 Pulse Rate 78 10/04/19 09:00 Respiratory Rate 20 10/04/19 09:00 Blood Pressure 143/79 10/04/19 09:00 O2 Sat by Pulse Oximetry (%) 100 10/04/19 09:00 Constitutional: Yes: No Distress Neck: Yes: Supple Cardiovascular: Yes: Regular Rate and Rhythm Respiratory: Yes: CTA Bilaterally Gastrointestinal: Yes: Soft Wound/Incision: Yes: Clean/Dry Labs: CBC, BMP 10/02/19 07:30 10/02/19 07:30 INR, PTT INR 1.00 (0.83-1.09) 09/26/19 03:14 Problem List - Problems (1) Abdominal pain Assessment/Plan: Doing well with subjective improvement of symptoms Continue current diet and medical management No contraindication for discharge as far as surgery is concerned. Code(s): R10.9 - UNSPECIFIED ABDOMINAL PAIN Qualifiers: Abdominal location: unspecified location Qualified Code(s): R10.9 - Unspecified abdominal pain
[2019-10-04] MEDS: ACETAMINOPHEN 1000 MG/100 ML VIAL (NON FORMULARY) IVPB PRN (17:12)
[2019-10-04] MEDS ORDERED: INSULIN (NOVOLOG) ASPART 100 UNITS/ML 10ML VIAL ONE (18:31)
[2019-10-04] MEDS ORDERED: PT OWN MED DRAWER 7, Y5N ONE (21:20)
--- NOTE | 2019-10-04 21:33 | PN ---
Progress Note, Physician History of Present Illness: Pt had some abdominal pain today - Current Medication List Current Medications: Active Medications Acetaminophen (Ofirmev Injection -) 1,000 mg IVPB Q6H PRN PRN Reason: PAIN SCALE 3-10 Last Admin: 10/04/19 17:12 Dose: 1,000 mg Buspirone HCl (Buspar -) 5 mg PO BID [facility] Last Admin: 10/04/19 09:15 Dose: 5 mg Docusate Sodium (Colace -) 100 mg PO TID [facility] Last Admin: 10/04/19 14:45 Dose: 100 mg HCTZ/Losartan Potassium (Hyzaar -) 2 tab PO DAILY [facility] Last Admin: 10/04/19 09:15 Dose: 2 tab Sodium Chloride (Normal Saline -) 1,000 mls @ 100 mls/hr IV ASDIR [facility] Last Admin: 10/04/19 14:45 Dose: Not Given Levofloxacin (Levaquin 500 Mg Premixed Ivpb -) 500 mg in 100 mls @ 100 mls/hr IVPB DAILY [facility]; Protocol Last Admin: 10/04/19 09:16 Dose: 100 mls/hr Insulin Aspart (Novolog Vial Sliding Scale -) 1 vial SQ ACHS [facility]; Protocol Last Admin: 10/04/19 17:13 Dose: Not Given Insulin Detemir (Levemir Vial) 35 units SQ HS [facility] Last Admin: 10/03/19 21:41 Dose: 35 units Levothyroxine Sodium (Synthroid -) 150 mcg PO DAILY@0700 [facility] Last Admin: 10/04/19 06:58 Dose: 150 mcg Naproxen (Naprosyn -) 500 mg PO BID [facility] Last Admin: 10/04/19 09:14 Dose: 500 mg Pantoprazole Sodium (Protonix -) 40 mg PO DAILY [facility] Last Admin: 10/04/19 09:13 Dose: 40 mg Polyethylene Glycol (Miralax (For Daily Use) -) 17 gm PO DAILY [facility] Last Admin: 10/04/19 09:16 Dose: 17 gm Pregabalin (Lyrica -) 25 mg PO BID [facility] Last Admin: 10/04/19 09:13 Dose: 25 mg - Objective Vital Signs: Vital Signs Temperature 98.3 F 10/04/19 17:33 Pulse Rate 69 10/04/19 17:33 Respiratory Rate 20 10/04/19 17:33 Blood Pressure 147/73 10/04/19 17:33 O2 Sat by Pulse Oximetry (%) 100 10/04/19 09:00 Neck: Yes: WNL, Supple Cardiovascular: Yes: WNL, Regular Rate and Rhythm Respiratory: Yes: WNL, Regular, CTA Bilaterally Gastrointestinal: Yes: Normal Bowel Sounds, Soft, Other ((+) incisional tenderness) Labs: CBC, BMP 10/02/19 07:30 10/02/19 07:30 INR, PTT INR 1.00 (0.83-1.09) 09/26/19 03:14 Problem List - Problems (1) Abdominal pain Code(s): R10.9 - UNSPECIFIED ABDOMINAL PAIN Qualifiers: Abdominal location: unspecified location Qualified Code(s): R10.9 - Unspecified abdominal pain (2) Diabetes mellitus, insulin dependent (IDDM), uncontrolled Code(s): E11.65 - TYPE 2 DIABETES MELLITUS WITH HYPERGLYCEMIA; Z79.4 - HALF-WAY (CURRENT) USE OF INSULIN (3) Hypothyroidism Code(s): E03.9 - HYPOTHYROIDISM, UNSPECIFIED Qualifiers: Hypothyroidism type: unspecified Qualified Code(s): E03.9 - Hypothyroidism , unspecified (4) Peripheral neuropathy Code(s): G62.9 - POLYNEUROPATHY, UNSPECIFIED (5) HTN (hypertension) Code(s): I10 - ESSENTIAL (PRIMARY) HYPERTENSION (6) Anxiety and depression Code(s): F41.9 - ANXIETY DISORDER, UNSPECIFIED; F32.9 - MAJOR DEPRESSIVE DISORDER, SINGLE EPISODE, UNSPECIFIED
[2019-10-04] MEDS: INSULIN (LEVEMIR) 100 UNITS/ML UNITS SQ SCH (21:54)
[2019-10-05] MEDS: INSULIN SLIDING SCALE (NOVOLOG) 1 VIAL SQ SCH ×4 (06:19→21:06)
[2019-10-05] MEDS: LEVOTHYROXINE NA 150 MCG TABLET PO SCH (06:20)
[2019-10-05] MEDS: DOCUSATE SODIUM 100 MG CAPSULE (FP) PO SCH ×3 (06:20→21:06)
[2019-10-05] MEDS ORDERED: PT OWN MED DRAWER 7, Y5N ONE ×3 (06:34→20:49)
[2019-10-05] MEDS: PANTOPRAZOLE 40 MG TABLET (FP) PO SCH (10:19)
[2019-10-05] MEDS: PREGABALIN 25 MG CAPSULE PO SCH ×2 (10:19→21:06)
[2019-10-05] MEDS: NAPROXEN 500 MG TABLET (FP) PO SCH ×2 (10:20→21:06)
[2019-10-05] MEDS: busPIRone HCL 5 MG TABLET PO SCH ×2 (10:20→21:06)
[2019-10-05] MEDS: LOSARTAN 50MG/HCTZ 12.5MG 1 TAB (FP) PO SCH (10:20)
[2019-10-05] MEDS ORDERED: INSULIN (NOVOLOG) ASPART 100 UNITS/ML 10ML VIAL ONE (11:38)
[2019-10-05] MEDS: POLYETHYLENE GLYCOL 3350 119 GM BTL PO SCH (11:44)
[2019-10-05] MEDS: ACETAMINOPHEN 1000 MG/100 ML VIAL (NON FORMULARY) IVPB PRN ×2 (11:44→22:26)
[2019-10-05] MEDS: SODIUM CHLORIDE 1,000 ML IV SCH (16:21)
--- NOTE | 2019-10-05 20:15 | PN ---
Progress Note, Physician History of Present Illness: Pt ambulating and eating - Current Medication List Current Medications: Active Medications Acetaminophen (Ofirmev Injection -) 1,000 mg IVPB Q6H PRN PRN Reason: PAIN SCALE 3-10 Last Admin: 10/05/19 11:44 Dose: 1,000 mg Buspirone HCl (Buspar -) 5 mg PO BID [facility] Last Admin: 10/05/19 10:20 Dose: 5 mg Docusate Sodium (Colace -) 100 mg PO TID [facility] Last Admin: 10/05/19 16:21 Dose: 100 mg HCTZ/Losartan Potassium (Hyzaar -) 2 tab PO DAILY [facility] Last Admin: 10/05/19 10:20 Dose: 2 tab Sodium Chloride (Normal Saline -) 1,000 mls @ 100 mls/hr IV ASDIR [facility] Last Admin: 10/05/19 16:21 Dose: 100 mls/hr Levofloxacin (Levaquin 500 Mg Premixed Ivpb -) 500 mg in 100 mls @ 100 mls/hr IVPB DAILY [facility]; Protocol Last Admin: 10/05/19 10:17 Dose: 100 mls/hr Insulin Aspart (Novolog Vial Sliding Scale -) 1 vial SQ ACHS [facility]; Protocol Last Admin: 10/05/19 17:14 Dose: Not Given Insulin Detemir (Levemir Vial) 35 units SQ HS [facility] Last Admin: 10/04/19 21:54 Dose: 35 units Levothyroxine Sodium (Synthroid -) 150 mcg PO DAILY@0700 [facility] Last Admin: 10/05/19 06:20 Dose: 150 mcg Naproxen (Naprosyn -) 500 mg PO BID [facility] Last Admin: 10/05/19 10:20 Dose: 500 mg Pantoprazole Sodium (Protonix -) 40 mg PO DAILY [facility] Last Admin: 10/05/19 10:19 Dose: 40 mg Polyethylene Glycol (Miralax (For Daily Use) -) 17 gm PO DAILY [facility] Last Admin: 10/05/19 11:44 Dose: 17 gm Pregabalin (Lyrica -) 25 mg PO BID [facility] Last Admin: 10/05/19 10:19 Dose: 25 mg - Objective Vital Signs: Vital Signs Temperature 98.5 F 10/05/19 17:18 Pulse Rate 72 10/05/19 17:18 Respiratory Rate 18 10/05/19 17:18 Blood Pressure 167/82 10/05/19 17:18 O2 Sat by Pulse Oximetry (%) 100 10/05/19 09:00 Neck: Yes: WNL, Supple Cardiovascular: Yes: WNL, Regular Rate and Rhythm Respiratory: Yes: WNL, Regular, CTA Bilaterally Gastrointestinal: Yes: Normal Bowel Sounds, Soft, Other ((+) incisional tenderness) Labs: CBC, BMP 10/02/19 07:30 10/02/19 07:30 INR, PTT INR 1.00 (0.83-1.09) 09/26/19 03:14 Problem List - Problems (1) Abdominal pain Assessment/Plan: HIDA scan shows biliary dyskinesia S/P lap choley Tolerating diet DC planning for am Pt will need f/u of ct scan abd/pelvis in 3 months for pancreas f/u Code(s): R10.9 - UNSPECIFIED ABDOMINAL PAIN Qualifiers: Abdominal location: unspecified location Qualified Code(s): R10.9 - Unspecified abdominal pain (2) Hypothyroidism Assessment/Plan: TSH is elevated Increased levothyroxine Endo consult Code(s): E03.9 - HYPOTHYROIDISM, UNSPECIFIED Qualifiers: Hypothyroidism type: unspecified Qualified Code(s): E03.9 - Hypothyroidism , unspecified (3) Diabetes mellitus, insulin dependent (IDDM), uncontrolled Assessment/Plan: Pt has not been compliant w/ medicatons at home Will give levemir while in hospital Code(s): E11.65 - TYPE 2 DIABETES MELLITUS WITH HYPERGLYCEMIA; Z79.4 - RUNWAY MODEL (CURRENT) USE OF INSULIN (4) Peripheral neuropathy Assessment/Plan: Cont lyrica Code(s): G62.9 - POLYNEUROPATHY, UNSPECIFIED (5) HTN (hypertension) Assessment/Plan: BP stable Cont losartan/hctz Code(s): I10 - ESSENTIAL (PRIMARY) HYPERTENSION (6) Anxiety and depression Assessment/Plan: Cont buspar Robbie decrease dose of lorazepam Code(s): F41.9 - ANXIETY DISORDER, UNSPECIFIED; F32.9 - MAJOR DEPRESSIVE DISORDER, SINGLE EPISODE, UNSPECIFIED
[2019-10-05] MEDS: INSULIN (LEVEMIR) 100 UNITS/ML UNITS SQ SCH (21:05)
--- NOTE | 2019-10-06 01:17 | PN ---
Progress Note, Physician Chief Complaint: comfortable\tolerating synthroid - Current Medication List Current Medications: Active Medications Acetaminophen (Ofirmev Injection -) 1,000 mg IVPB Q6H PRN PRN Reason: PAIN SCALE 3-10 Last Admin: 10/05/19 22:26 Dose: 1,000 mg Buspirone HCl (Buspar -) 5 mg PO BID [facility] Last Admin: 10/05/19 21:06 Dose: 5 mg Docusate Sodium (Colace -) 100 mg PO TID [facility] Last Admin: 10/05/19 21:06 Dose: 100 mg HCTZ/Losartan Potassium (Hyzaar -) 2 tab PO DAILY [facility] Last Admin: 10/05/19 10:20 Dose: 2 tab Sodium Chloride (Normal Saline -) 1,000 mls @ 100 mls/hr IV ASDIR [facility] Last Admin: 10/05/19 16:21 Dose: 100 mls/hr Levofloxacin (Levaquin 500 Mg Premixed Ivpb -) 500 mg in 100 mls @ 100 mls/hr IVPB DAILY [facility]; Protocol Last Admin: 10/05/19 10:17 Dose: 100 mls/hr Insulin Aspart (Novolog Vial Sliding Scale -) 1 vial SQ ACHS [facility]; Protocol Last Admin: 10/05/19 21:06 Dose: Not Given Insulin Detemir (Levemir Vial) 35 units SQ HS [facility] Last Admin: 10/05/19 21:05 Dose: 35 units Levothyroxine Sodium (Synthroid -) 150 mcg PO DAILY@0700 [facility] Last Admin: 10/05/19 06:20 Dose: 150 mcg Naproxen (Naprosyn -) 500 mg PO BID [facility] Last Admin: 10/05/19 21:06 Dose: 500 mg Pantoprazole Sodium (Protonix -) 40 mg PO DAILY [facility] Last Admin: 10/05/19 10:19 Dose: 40 mg Polyethylene Glycol (Miralax (For Daily Use) -) 17 gm PO DAILY [facility] Last Admin: 10/05/19 11:44 Dose: 17 gm Pregabalin (Lyrica -) 25 mg PO BID [facility] Last Admin: 10/05/19 21:06 Dose: 25 mg - Objective Vital Signs: Vital Signs Temperature 98.5 F 10/05/19 17:18 Pulse Rate 70 10/05/19 21:58 Respiratory Rate 18 10/05/19 21:58 Blood Pressure 156/86 10/05/19 21:58 O2 Sat by Pulse Oximetry (%) 100 10/05/19 09:00 Constitutional: Yes: Calm Eyes: Yes: EOM Intact HENT: Yes: Normocephalic Neck: Yes: Trachea Midline Cardiovascular: Yes: Regular Rate and Rhythm Respiratory: Yes: CTA Bilaterally Gastrointestinal: Yes: Normal Bowel Sounds ...Rectal Exam: Yes: Deferred Genitourinary: Yes: WNL Musculoskeletal: Yes: WNL Extremities: Yes: WNL Neurological: Yes: Alert, Oriented Labs: CBC, BMP 10/02/19 07:30 10/02/19 07:30 INR, PTT INR 1.00 (0.83-1.09) 09/26/19 03:14 Problem List - Problems (1) Other specified hypothyroidism Problems reviewed: Yes Code(s): E03.8 - OTHER SPECIFIED HYPOTHYROIDISM (2) Abdominal pain Problems reviewed: Yes Code(s): R10.9 - UNSPECIFIED ABDOMINAL PAIN Qualifiers: Abdominal location: unspecified location Qualified Code(s): R10.9 - Unspecified abdominal pain (3) Acute cholecystitis Problems reviewed: Yes Code(s): K81.0 - ACUTE CHOLECYSTITIS (4) Chronic pancreatitis Problems reviewed: Yes Code(s): K86.1 - OTHER CHRONIC PANCREATITIS (5) HTN (hypertension) Code(s): I10 - ESSENTIAL (PRIMARY) HYPERTENSION (6) Hyperlipidemia Code(s): E78.5 - HYPERLIPIDEMIA, UNSPECIFIED (7) Peripheral neuropathy Code(s): G62.9 - POLYNEUROPATHY, UNSPECIFIED Assessment/Plan Current Active Problems dm t2 hypothyrodism Abdominal pain (Acute) Acute cholecystitis (Acute) Anxiety and depression (Acute) Chronic pancreatitis (Acute) Constipation (Acute) HTN (hypertension) (Acute) Hyperlipidemia (Acute) Other specified hypothyroidism (Acute) Peripheral neuropathy (Acute) Abnormal Lab Results 10/05/19 06:30 Hemoglobin A1c % 11.0 H Laboratory Results - last 24 hr 10/05/19 10/05/19 10/05/19 06:19 06:30 11:35 POC Glucometer 111 217 Hemoglobin A1c % 11.0 H 10/05/19 10/05/19 17:14 21:03 POC Glucometer 95 146 Hemoglobin A1c % Laboratory Tests 10/03/19 06:20 TSH 60.50 H plan: synthroid 150mcg daily levemir 35uints daily continue advance diet
--- NOTE | 2019-10-06 05:29 | PN ---
Progress Note, Physician Chief Complaint: Pt A&O; c/o abdominal pain. - Current Medication List Current Medications: Active Medications Acetaminophen (Ofirmev Injection -) 1,000 mg IVPB Q6H PRN PRN Reason: PAIN SCALE 3-10 Last Admin: 10/05/19 22:26 Dose: 1,000 mg Buspirone HCl (Buspar -) 5 mg PO BID [facility] Last Admin: 10/05/19 21:06 Dose: 5 mg Docusate Sodium (Colace -) 100 mg PO TID [facility] Last Admin: 10/05/19 21:06 Dose: 100 mg HCTZ/Losartan Potassium (Hyzaar -) 2 tab PO DAILY [facility] Last Admin: 10/05/19 10:20 Dose: 2 tab Sodium Chloride (Normal Saline -) 1,000 mls @ 100 mls/hr IV ASDIR [facility] Last Admin: 10/05/19 16:21 Dose: 100 mls/hr Levofloxacin (Levaquin 500 Mg Premixed Ivpb -) 500 mg in 100 mls @ 100 mls/hr IVPB DAILY [facility]; Protocol Last Admin: 10/05/19 10:17 Dose: 100 mls/hr Insulin Aspart (Novolog Vial Sliding Scale -) 1 vial SQ ACHS [facility]; Protocol Last Admin: 10/05/19 21:06 Dose: Not Given Insulin Detemir (Levemir Vial) 35 units SQ HS [facility] Last Admin: 10/05/19 21:05 Dose: 35 units Levothyroxine Sodium (Synthroid -) 150 mcg PO DAILY@0700 [facility] Last Admin: 10/05/19 06:20 Dose: 150 mcg Naproxen (Naprosyn -) 500 mg PO BID [facility] Last Admin: 10/05/19 21:06 Dose: 500 mg Pantoprazole Sodium (Protonix -) 40 mg PO DAILY [facility] Last Admin: 10/05/19 10:19 Dose: 40 mg Polyethylene Glycol (Miralax (For Daily Use) -) 17 gm PO DAILY [facility] Last Admin: 10/05/19 11:44 Dose: 17 gm Pregabalin (Lyrica -) 25 mg PO BID [facility] Last Admin: 10/05/19 21:06 Dose: 25 mg - Objective Vital Signs: Vital Signs Temperature 98.5 F 10/05/19 17:18 Pulse Rate 70 10/05/19 21:58 Respiratory Rate 18 10/05/19 21:58 Blood Pressure 156/86 10/05/19 21:58 O2 Sat by Pulse Oximetry (%) 100 10/05/19 09:00 Constitutional: Yes: Anxious Eyes: Yes: WNL Labs: CBC, BMP 10/02/19 07:30 10/02/19 07:30 INR, PTT INR 1.00 (0.83-1.09) 09/26/19 03:14 Problem List - Problems (1) Abdominal pain Assessment/Plan: For cholecystectomy today. Code(s): R10.9 - UNSPECIFIED ABDOMINAL PAIN Qualifiers: Abdominal location: unspecified location Qualified Code(s): R10.9 - Unspecified abdominal pain (2) Anxiety and depression Code(s): F41.9 - ANXIETY DISORDER, UNSPECIFIED; F32.9 - MAJOR DEPRESSIVE DISORDER, SINGLE EPISODE, UNSPECIFIED (3) HTN (hypertension) Assessment/Plan: on losartan + HCTZ. Code(s): I10 - ESSENTIAL (PRIMARY) HYPERTENSION (4) Diabetes Code(s): E11.9 - TYPE 2 DIABETES MELLITUS WITHOUT COMPLICATIONS (5) Hypertension Code(s): I10 - ESSENTIAL (PRIMARY) HYPERTENSION Qualifiers: Hypertension type: unspecified Qualified Code(s): I10 - Essential (primary ) hypertension (6) Hypothyroidism Assessment/Plan: Markedly abnormal in August; f/u repeat TFTs. for cholecystectomy. Code(s): E03.9 - HYPOTHYROIDISM, UNSPECIFIED Qualifiers: Hypothyroidism type: unspecified Qualified Code(s): E03.9 - Hypothyroidism , unspecified (7) Hyperlipidemia Assessment/Plan: f/u TFTs; if corrected and lipids remain elevated, start statin. Code(s): E78.5 - HYPERLIPIDEMIA, UNSPECIFIED (8) Acute cholecystitis Assessment/Plan: Pt denies hx cardiac disease. No family hx [place]. Pt was walking regularly, without chest pain or dyspnea, until several months ago, when she fell (tripped; no syncope) and injured her leg. Stress test "years ago" reportedly normal. ECHO this admission: normal LVEF. From a cardiac standpoint, there are no absolute contraindications for Ms. Jackson to undergo a cholecystectomy this admission. Code(s): K81.0 - ACUTE CHOLECYSTITIS
[2019-10-06] MEDS: DOCUSATE SODIUM 100 MG CAPSULE (FP) PO SCH ×2 (06:19→14:57)
[2019-10-06] MEDS: LEVOTHYROXINE NA 150 MCG TABLET PO SCH (06:19)
[2019-10-06] MEDS: INSULIN SLIDING SCALE (NOVOLOG) 1 VIAL SQ SCH ×2 (06:20→11:23)
[2019-10-06] MEDS ORDERED: INSULIN (NOVOLOG) ASPART 100 UNITS/ML 10ML VIAL ONE (06:34)
[2019-10-06] MEDS ORDERED: INSULIN (LEVEMIR) 100 UNITS/ML UNITS SQ ONE (06:34)
--- NOTE | 2019-10-06 08:29 | PN ---
Progress Note, Physician History of Present Illness: 79 yo F h/o DM htn hld CAD, CHF dilated cbd in the past, here with c/o right sided abd pain n/v. pt states threw up few times.all nonbloody nonbilious. no fevr or chills. no mod factors. ext wp no edema. no calf tenderness. no mod factors. had MRI two days ago to evaluate this pain. h/o hysterectomy, oopherectomy htn hld dm here with n/v abd pain. differential worsening cbd dilation, biliary obstruction, sbo, uti pyelo. plan ct ap labs ua zofran. - Current Medication List Current Medications: Active Medications Acetaminophen (Ofirmev Injection -) 1,000 mg IVPB Q6H PRN PRN Reason: PAIN SCALE 3-10 Last Admin: 10/05/19 22:26 Dose: 1,000 mg Buspirone HCl (Buspar -) 5 mg PO BID [facility] Last Admin: 10/05/19 21:06 Dose: 5 mg Docusate Sodium (Colace -) 100 mg PO TID [facility] Last Admin: 10/06/19 06:19 Dose: 100 mg HCTZ/Losartan Potassium (Hyzaar -) 2 tab PO DAILY [facility] Last Admin: 10/05/19 10:20 Dose: 2 tab Sodium Chloride (Normal Saline -) 1,000 mls @ 100 mls/hr IV ASDIR [facility] Last Admin: 10/05/19 16:21 Dose: 100 mls/hr Levofloxacin (Levaquin 500 Mg Premixed Ivpb -) 500 mg in 100 mls @ 100 mls/hr IVPB DAILY [facility]; Protocol Last Admin: 10/05/19 10:17 Dose: 100 mls/hr Insulin Aspart (Novolog Vial Sliding Scale -) 1 vial SQ ACHS [facility]; Protocol Last Admin: 10/06/19 06:20 Dose: Not Given Insulin Detemir (Levemir Vial) 35 units SQ HS [facility] Last Admin: 10/05/19 21:05 Dose: 35 units Levothyroxine Sodium (Synthroid -) 150 mcg PO DAILY@0700 [facility] Last Admin: 10/06/19 06:19 Dose: 150 mcg Naproxen (Naprosyn -) 500 mg PO BID [facility] Last Admin: 10/05/19 21:06 Dose: 500 mg Pantoprazole Sodium (Protonix -) 40 mg PO DAILY [facility] Last Admin: 10/05/19 10:19 Dose: 40 mg Polyethylene Glycol (Miralax (For Daily Use) -) 17 gm PO DAILY [facility] Last Admin: 10/05/19 11:44 Dose: 17 gm Pregabalin (Lyrica -) 25 mg PO BID [facility] Last Admin: 10/05/19 21:06 Dose: 25 mg - Objective Vital Signs: Vital Signs Temperature 98.4 F 10/06/19 06:30 Pulse Rate 64 10/06/19 06:30 Respiratory Rate 20 10/06/19 06:30 Blood Pressure 152/79 10/06/19 06:30 O2 Sat by Pulse Oximetry (%) 100 10/05/19 09:00 Eyes: Yes: WNL, Conjunctiva Clear, EOM Intact HENT: Yes: WNL, Atraumatic, Normocephalic Neck: Yes: WNL, Supple, Trachea Midline Cardiovascular: Yes: WNL, Regular Rate and Rhythm Respiratory: Yes: WNL, Regular, CTA Bilaterally Gastrointestinal: Yes: WNL, Normal Bowel Sounds Genitourinary: Yes: WNL Musculoskeletal: Yes: WNL Extremities: Yes: WNL Edema: No Integumentary: Yes: WNL Neurological: Yes: WNL, Alert, Oriented ...Motor Strength: WNL Psychiatric: Yes: WNL Labs: CBC, BMP 10/02/19 07:30 10/02/19 07:30 INR, PTT INR 1.00 (0.83-1.09) 09/26/19 03:14 Assessment/Plan - Problems (1) Abdominal pain Assessment/Plan: stable s/p cholecystectomy . Code(s): R10.9 - UNSPECIFIED ABDOMINAL PAIN Qualifiers: Abdominal location: unspecified location Qualified Code(s): R10.9 - Unspecified abdominal pain (2) Anxiety and depression Code(s): F41.9 - ANXIETY DISORDER, UNSPECIFIED; F32.9 - MAJOR DEPRESSIVE DISORDER, SINGLE EPISODE, UNSPECIFIED (3) HTN (hypertension) Assessment/Plan: on losartan + HCTZ. Code(s): I10 - ESSENTIAL (PRIMARY) HYPERTENSION (4) Diabetes Code(s): E11.9 - TYPE 2 DIABETES MELLITUS WITHOUT COMPLICATIONS (5) Hypertension Code(s): I10 - ESSENTIAL (PRIMARY) HYPERTENSION Qualifiers: Hypertension type: unspecified Qualified Code(s): I10 - Essential (primary ) hypertension (6) Hypothyroidism Assessment/Plan: Markedly abnormal in August; f/u repeat TFTs. for cholecystectomy. Code(s): E03.9 - HYPOTHYROIDISM, UNSPECIFIED Qualifiers: Hypothyroidism type: unspecified Qualified Code(s): E03.9 - Hypothyroidism , unspecified (7) Hyperlipidemia Assessment/Plan: f/u TFTs; if corrected and lipids remain elevated, start statin. Code(s): E78.5 - HYPERLIPIDEMIA, UNSPECIFIED (8) Acute cholecystitis Assessment/Plan: Pt denies hx cardiac disease. No family hx [place]. Pt was walking regularly, without chest pain or dyspnea, until several months ago, when she fell (tripped; no syncope) and injured her leg. Stress test "years ago" reportedly normal. ECHO this admission: normal LVEF.
[2019-10-06] MEDS: NAPROXEN 500 MG TABLET (FP) PO SCH (09:47)
[2019-10-06] MEDS: busPIRone HCL 5 MG TABLET PO SCH (09:47)
[2019-10-06] MEDS: PREGABALIN 25 MG CAPSULE PO SCH (09:48)
[2019-10-06] MEDS: PANTOPRAZOLE 40 MG TABLET (FP) PO SCH (09:48)
[2019-10-06] MEDS: LOSARTAN 50MG/HCTZ 12.5MG 1 TAB (FP) PO SCH (09:49)
[2019-10-06] MEDS: POLYETHYLENE GLYCOL 3350 119 GM BTL PO SCH (09:49)
[2019-10-06] MEDS: SODIUM CHLORIDE 1,000 ML IV SCH (12:46)
[2019-10-06 15:38] VITALS: BP 126/75; PULSE 76; TEMP 98.3
--- NOTE | 2019-10-06 18:38 | PATH ---
Surgical Pathology Report Patient Name: DAVID BARILLAS Med. Rec. #: [id number] /Age/Gender: 1940 (Age: 79) / F Account: [id number] Location: [facility] MED/SURG Taken: 10/03/2019 Received: 10/03/2019 Reported: 10/06/2019 Physicians: Hernandez Anthony M.D. Specimen(s) Received GALLBLADDER Clinical History Biliary dyskinesia and lysis of adhesions Final Diagnosis GALLBLADDER, LAPAROSCOPIC CHOLECYSTECTOMY: GALLBLADDER WITH PATCHY MUCOSAL EROSION. Electronically Signed Tayler Benjamin M.D. Gross Description Received in formalin, labeled "gallbladder," is a 9.0 x 3.7 x 3.4 cm. gallbladder with a 0.2 cm. in length portion of cystic duct attached. The outer surface is cosby-phillips and varies from smooth to shaggy. The lumen contains green, tenacious bile. There are no choleliths identified within the lumen. The mucosa is cosby and focally eroded. The wall of the gallbladder measures 0.1 cm. in thickness. Graduate Student sections are submitted in one cassette. /10/03/2019 saudi10/03/2019
== END 2019-10-06 16:49 | disposition home or self-care (01) | DRG 418 ==
LOC: JER 00:36 → JERBED 06:30 → J8W 08:50
PROVIDERS: ADMIT Internal Medicine; ATTEND Internal Medicine
PROC: 0DNU4ZZ Release Omentum, Percutaneous Endoscopic Approach (ICD-10-PCS; 2019-10-03)
PROC: 0FT44ZZ Resection of Gallbladder, Percutaneous Endoscopic Approach (ICD-10-PCS; principal; 2019-10-03 11:30)
DX: K82.8 Other specified diseases of gallbladder (principal); K86.2 Cyst of pancreas; N39.0 Urinary tract infection, site not specified; K86.1 Other chronic pancreatitis; K81.1 Chronic cholecystitis; K66.0 Peritoneal adhesions (postprocedural) (postinfection); I10 Essential (primary) hypertension; I50.9 Heart failure, unspecified; I25.10 Atherosclerotic heart disease of native coronary artery without angina pectoris; E78.5 Hyperlipidemia, unspecified; E03.9 Hypothyroidism, unspecified; F41.8 Other specified anxiety disorders; E11.65 Type 2 diabetes mellitus with hyperglycemia; G62.9 Polyneuropathy, unspecified; K59.00 Constipation, unspecified; R10.9 Unspecified abdominal pain
CPT/HCPCS: 36415; 71045-TC-FY; 74018-TC-FY; 74177-TC; 78227-TC; 80053; 80061; 81003; 82150; 82550; 82962; 83036; 83605; 83690; 83721; 83735; 83880; 84439; 84443; 84484; 85025; 85610; 85730; 87086; 87186; 88304-TC; 93005; 93010; 93306-TC; 94760; 97116-GP; 97161-GP; 99284-25; A9537; J0131; J7030

== ENCOUNTER 2019-12-03 16:40 | Emergency (ER) | payer OTHER ==
[2019-12-03 16:58] VITALS: BP 153/79; PULSE 84; TEMP 97.9; BMI 24.2
[2019-12-03] MEDS ORDERED: SODIUM CHLORIDE 1,000 ML IV STA (16:58)
--- NOTE | 2019-12-03 16:58 | PDOC ---
Rapid Medical Evaluation Time Seen by Provider: 12/03/19 16:55 Medical Evaluation: Allergies Allergy/AdvReac Type Severity Reaction Status Date / Time azithromycin [From Azasite] Allergy Verified 09/26/19 00:48 Penicillins Allergy passes out Verified 09/26/19 00:48 phenylephrine Allergy Verified 09/26/19 00:48 LOTEMAX Allergy Uncoded 09/26/19 00:48 NEOSYNEPH Allergy Uncoded 09/26/19 00:48 12/03/19 16:55 Pt presents for evaluation of abdominal pain for two months. States it is worse when she breathes and radiates to the back. Hx of chronic pancreatitis. Exam: diffuse upper abdominal pain. Orders: labs, EKG, IV Pt to proceed to the ER for evaluation Discharge Disposition - Diagnosis Abdominal pain Qualifiers: Abdominal location: epigastric Qualified Code(s): R10.13 - Epigastric pain - Referrals - Patient Instructions - Post Discharge Activity
--- NOTE | 2019-12-03 17:13 | PDOC ---
History of Present Illness - General Chief Complaint: Pain, Acute Stated Complaint: PAIN Time Seen by Provider: 12/03/19 16:55 History Source: Patient, Cigar Head Pegger Used Exam Limitations: No Limitations - History of Present Illness Initial Comments: 12/03/19 17:12 Reynakyara Jackson is a 79F with PMH HTN, IDDM, GERD, and cholecystecomy for cholecystitis 2 months presenting with worsening abdominal pain and nausea. Patient reports that ever since she had her gallbladder removed, she has had generalized and constant abdominal pain with nausea that is not worsened with meals and is unrelated to constipation/diarrhea. Says pain is in her entire abdomen and even her back.Has tried taking Percocets and Tylenol without improvement. Denies fever/chills, chest pain, SOB. Denies urinary sx. Denies any alcohol use. Past History - Past Medical History Allergies/Adverse Reactions: Allergies Allergy/AdvReac Type Severity Reaction Status Date / Time azithromycin [From Azasite] Allergy Verified 12/03/19 18:48 Penicillins Allergy passes out Verified 12/03/19 18:48 phenylephrine Allergy Verified 12/03/19 18:48 LOTEMAX Allergy Uncoded 12/03/19 18:48 NEOSYNEPH Allergy Uncoded 12/03/19 18:48 Home Medications: Ambulatory Orders Insulin Degludec [Tresiba Flextouch U-200] 40 unit SQ DAILY 09/28/19 Buspirone HCl [Buspar -] 5 mg PO BID #60 tablet 10/06/19 Docusate Sodium [Colace -] 100 mg PO TID #90 capsule 10/06/19 Levothyroxine [Synthroid -] 150 mcg PO DAILY@0700 #30 tablet 10/06/19 Acetaminophen [Tylenol -] 500 mg PO Q6H PRN 12/03/19 Amlodipine Besylate 5 mg PO DAILY 12/03/19 Esomeprazole Magnesium 40 mg PO DAILY 12/03/19 Linagliptin/Metformin HCl [Jentadueto 2.5 mg-1000 mg Tab] 1 each PO BID Naproxen Sodium 1 tab PO PRN PRN 12/03/19 Pantoprazole Sodium [Protonix] 40 mg PO DAILY 30 Days #30 tablet. 12/03/19 Anemia: Yes Asthma: No Cancer: No Cardiac Disorders: No CVA: No COPD: No CHF: No Dementia: No Diabetes: Yes GI Disorders: No Disorders: No HTN: Yes Hypercholesterolemia: Yes Liver Disease: No Seizures: No Thyroid Disease: Yes (HYPO) - Surgical History Abdominal Surgery: No Appendectomy: No Cardiac Surgery: No Cholecystectomy: No Lung Surgery: No Neurologic Surgery: No Orthopedic Surgery: Yes (TENDON OPERATION Bilateral Hands) - Immunization History Immunization Up to Date: No - Psycho Social/Smoking Cessation Hx Smoking Status: No Smoking History: Never smoked Have you smoked in the past 12 months: No Number of Cigarettes Smoked Daily: 0 Information on smoking cessation initiated: No Hx Alcohol Use: No Drug/Substance Use Hx: No Substance Use Type: None Hx Substance Use Treatment: No Review of Systems - Review of Systems Able to Perform ROS?: Yes Constitutional: No: Chills, Fever, Malaise HEENTM: No: Symptoms Reported Respiratory: No: Cough, Shortness of Breath, Wheezing Cardiac (ROS): No: Chest Pain, Edema, Palpitations, Syncope, Chest Tightness ABD/GI: Yes: Nausea, Other (abdominal pain). No: Constipated, Diarrhea, Vomiting : No: Symptoms Reported Musculoskeletal: Yes: Back Pain Integumentary: No: Symptoms Reported Neurological: No: Symptoms reported Endocrine: No: Symptoms Reported Hematologic/Lymphatic: No: Symptoms Reported All Other Systems: Reviewed and Negative *Physical Exam - Vital Signs Last Vital Signs Temp Pulse Resp BP Pulse Ox 97.9 F 84 16 153/79 99 12/03/19 16:56 12/03/19 16:56 12/03/19 16:56 12/03/19 16:56 12/03/19 16:56 - Physical Exam General Appearance: Yes: Nourished, Appropriately Dressed. No: Apparent Distress HEENT: positive: EOMI, EMMY, Normal ENT Inspection, Normal Voice, Hearing Grossly Normal. negative: Scleral Icterus (R), Tonsillar Exudate Neck: positive: Trachea midline, Supple. negative: Tender, Rigid, Lymphadenopathy (R), Lymphadenopathy (L) Respiratory/Chest: positive: Lungs Clear, Normal Breath Sounds. negative: Chest Tender, Respiratory Distress, Accessory Muscle Use, Crackles, Rales, Rhonchi, Stridor, Wheezing Cardiovascular: positive: Regular Rhythm, Regular Rate. negative: Edema, Murmur Gastrointestinal/Abdominal: positive: Normal Bowel Sounds, Tender (generalized) , Flat, Soft, Guarding. negative: Rebound, Hernia Musculoskeletal: positive: Normal Inspection. negative: CVA Tenderness Extremity: positive: Normal Capillary Refill, Normal Inspection, Normal Range of Motion, Pelvis Stable. negative: Tender Integumentary: positive: Normal Color, Dry, Warm Neurologic: positive: Fully Oriented, Alert, Normal Mood/Affect, Normal Response , Motor Strength 03/23 ED Treatment Course - LABORATORY CBC & Chemistry Diagram: 12/03/19 17:14 12/03/19 17:14 Medical Decision Making - Medical Decision Making 12/03/19 18:15 Patient is a 79 year old [place]an speaking female presenting with worsening abdominal pain 2 months out from her cholecystectomy. Presentation with abdominal pain is concerning for pancreatitis, gastritis, surgical complication. Surgeon Dr. Anthony ordered US abdomen which was grossly normal, has GI follow-up. - CBC/CMP/Lipase for evaluation of pancreatitis - ECG for evaluation of atypical angina - CT AP for characterization of abdominal pain 12/03/19 18:31 ECG shows SR with short WI and TWI in I, aVL, and V4-V6 consistent with prior ECG 12/03/19 18:42 CBC WNL CMP WNL Lipase 59, inconsistent with pancreatitis Cr 0.9 12/03/19 21:22 CT scan negative for acute pathology. Patient has no concerning findings at this time, have ruled out pancreatitis, bowel obstruction, surgical pathology. Most likely gastritis. Patient stable for f/u with fashion director as scheduled. Sending home with protonix. Had 20 min discussion with patient regarding her pain, lack of findings, and need for f/u in [place] with publishing agent phone. Discharge - Discharge Information Problems reviewed: Yes Clinical Impression/Diagnosis: Abdominal pain Qualifiers: Abdominal location: epigastric Qualified Code(s): R10.13 - Epigastric pain Condition: Stable Disposition: HOME - Additional Discharge Information Prescriptions: Pantoprazole Sodium [Protonix] 40 mg PO DAILY 30 Days #30 tablet. - Follow up/Referral Referrals: Nash Kendrick MD [Primary Care Provider] - - Patient Discharge Instructions Patient Printed Discharge Instructions: DI for Abdominal Pain-Adult Additional Instructions: Today you were evaluated for abdominal pain. Your labs do not show any problems. Your CT scan does not show any problems in your pancreas or intestines. You do not have any pancreatitis. The cause of you abdominal pain is likely irritation in your stomach and reflux. A home, avoid spicy or fatty foods and eat a bland diet. You need to follow-up with your fashion director as scheduled by your daughter. If you experience any nausea, vomiting, become unable to have bowel movements, have fever, or any other new or concerning symptoms, please return to the emergency room. Hoy fuiste evaluado por dolor abdominal. Yarelis laboratorios no muestran ningn problema. Guido tomografa computarizada no muestra ningn problema en guido pncreas o intestinos. No tienes ninguna pancreatitis. La causa de guido dolor abdominal es probablemente irritacin en guido estmago y reflujo. En casa, evite los alimentos picantes o grasosos y coma rica dieta blanda. Debe hacer un seguimiento con guido gastroenterlogo segn lo programado por guido hija. Si experimenta nuseas, vmitos, no puede defecar, tiene fiebre o cualquier otro sntoma nuevo o preocupante, regrese a la neha de emergencias. - Post Discharge Activity
[2019-12-03 17:27] LABS: PH,URINE 5.5 (5.0-8.0); URINE APPEARANCE CLEAR; URINE BILIRUBIN NEGATIVE (NEGATIVE); URINE COLOR YELLOW; URINE GLUCOSE (UA) 3+ (NEGATIVE); URINE KETONE NEGATIVE (NEGATIVE); URINE LEUK ESTERASE NEGATIVE (NEGATIVE); URINE NITRITE NEGATIVE (NEGATIVE); URINE PROTEIN NEGATIVE (NEGATIVE); URINE UROBILINOGEN 0.2 mg/dL (0.2-1.0)
[2019-12-03 17:43] LABS: BASO % 1.3 % (0-2.0); EOS % 4.2 % (0-4.5); HEMATOCRIT 39.1 % (32.4-45.2); HEMOGLOBIN 13.1 GM/dL (10.7-15.3); MCH 30.6 pg (25.7-33.7); MCHC 33.6 g/dl (32.0-36.0); MEAN CELL VOLUME 90.9 fl (80-96); MEAN PLT VOLUME 9.6 fl (7.5-11.1); MONO % 9.6 % (3.8-10.2); NEUT % 54.9 % (42.8-82.8); PLATELET COUNT 240 K/MM3 (134-434); RDW 13.4 % (11.6-15.6)
[2019-12-03 17:55] LABS: INR 0.9 (0.83-1.09); PROTHROMBIN TIME (PATIENT) 10.6 SEC (9.7-13.0)
[2019-12-03 18:11] LABS: ALBUMIN 3.5 g/dl (3.4-5.0); BILIRUBIN,TOTAL 0.2 mg/dL (0.2-1); BLOOD UREA NITROGEN 13.2 mg/dL (7-18); CALCIUM 9.5 mg/dL (8.5-10.1); CREATININE 0.9 mg/dL (0.55-1.3); POTASSIUM 4.2 mmol/L (3.5-5.1); TOT PROT 6.5 g/dl (6.4-8.2)
--- NOTE | 2019-12-03 18:52 | PDOC ---
Documentation entered by Iza Bowens SCRIBE, acting as scribe for Chrissy White DO. Chrissy White DO: This documentation has been prepared by the Gogo irizarry Nirvannie, SCRIBE, under my direction and personally reviewed by me in its entirety. I confirm that the documentation accurately reflects all work, treatment, procedures, and medical decision making performed by me. Attending Attestation - Resident Resident Name: AcostaashliBaudilio - ED Attending Attestation I have performed the following: I have examined & evaluated the patient, The case was reviewed & discussed with the resident, I agree w/resident's findings & plan, Exceptions are as noted - HPI HPI: 12/03/19 17:53 The patient is a 79 year old female, with a significant past medical history of HTN, HLD, anemia, IDDM, hypothyroidism, chronic pancreatitis, cholecystitis, and nephrolithiasis, who presents to the emergency department with 2 months of epigastric abdominal pain with associated nausea and one episode of diarrhea yesterday. Patient notes her pain is similar to her previous episode in 09/2019 for which she was diagnosed with cholecystitis (s/p choleystectomy). As per daughter on the telephone, patient was ordered a USS by her surgeon Dr. Anthony and was advised to follow up with GI (pending appointment with unknown doctor 12/11) . She denies recent fevers, chills, headache or dizziness. She denies recent dysuria, frequency, urgency or hematuria. She denies recent chest pain or shortness of breath. Allergies: Azithromycin, penicillins, phenylephrine, lotemax, neosyneph Past surgical history: Cholecystectomy. Tendon repair to the bilateral hands. Social history: Nonsmoker. Denies EtOH use and recreational drug use. Primary Care Physician: Dr. Nash Kendrick Urology: Dr. Bello - Physicial Exam PE: 12/03/19 18:34 Constitutional: Awake, alert, oriented. No acute distress. Head: Normocephalic. Atraumatic Eyes: PERRL. EOMI. Conjunctivae are not pale. ENT: Mucous membranes are moist and intact. Posterior pharynx without exudates or erythema. Uvula midline. Neck: Supple. Full ROM. No lymphadenopathy. Cardiovascular: Regular rate. Regular rhythm. S1, S2 regular. Distal pulses are 2+ and symmetric. Pulmonary/Chest: No evidence of respiratory distress. Clear to auscultation bilaterally No wheezing, rales or rhonchi. Abdominal: +Diffuse upper, epigastric tenderness. Soft and non-distended. No rebound, guarding or rigidity. No organomegaly. No palpable masses. Good bowel sounds. Back: No CVA tenderness. Musculoskeletal: No edema. No cyanosis. No clubbing. Full range of motion in all extremities. No calf tenderness. Radial/pedal pulses are intact and 2+ bilaterally Skin: Skin is warm and dry. No petechiae. No purpura. Neurological: Alert and oriented to person, place, and time. Cranial nerves II -XII are grossly intact. Normal speech. Strength is grossly symmetric. No sensory deficits. Psychiatric: Good eye contact. Normal interaction, affect and behavior. - Medical Decision Making 12/03/19 18:48 I, Dr. Chrissy White, DO, attest that this document has been prepared under my direction and personally reviewed by me in its entirety. I further attest, that it accurately reflects all work, treatment, procedures and medical decision -making performed by me. a/p: 79yo female s/p lap sparkle in September for epigastric pain and cholecystitis -pt with epigastric tightening, burning sensation -dx in july with gastritis per prior notes -pt states pain persistent despite sx -pt with epigastric ttp- no rebound or guarding -suspect gerd vs pud, however given nausea and diarrhea and hx of adhesions and OTILIO will send for ct imaging -had an ultrasound last week that did not show acute pathology in the RUQ -will send labs, ct abd/pelvis -will medicate for pain with gi meds -will monitor and reassess 12/03/19 19:32 pt with hyperglycemia and glucouria lipase low pending ct imaging 12/03/19 21:22 no acute findings on ct no pancreatitis has appt with GI on 12/1112/03/19 22:26 pt stable for dc to home resident discussed labs and imaging results
[2019-12-03] MEDS ORDERED: MAG HYDROX/AL HYDROX/SIMETH -MYLANTA- ORAL SUSPENSION PO ONE (19:03)
[2019-12-03] MEDS ORDERED: FAMOTIDINE 20 MG/50 ML IVPB 20 MG/50 ML MG IVPB ONE ×2 (19:03→20:24)
[2019-12-03] MEDS ORDERED: PANTOPRAZOLE SODIUM 40 MG VIAL IVPUSH ONE (19:03)
[2019-12-03] MEDS ORDERED: PANTOPRAZOLE SODIUM 40 MG VIAL ONE (20:23)
[2019-12-03] MEDS ORDERED: MAG HYDROX/AL HYDROX/SIMETH 30 ML UNIT-DOSE CUP ONE (20:23)
--- NOTE | 2019-12-04 11:56 | EKG ---
Test Reason : Blood Pressure : / mmHG Vent. Rate : 077 BPM Atrial Rate : 077 BPM P-R Int : 110 ms QRS Dur : 074 ms QT Int : 342 ms P-R-T Axes : 000 016 133 degrees QTc Int : 387 ms SINUS RHYTHM WITH SHORT RI ABNORMAL ECG WHEN COMPARED WITH ECG OF 02-OCT-2019 11:53, SINUS RHYTHM HAS REPLACED JUNCTIONAL RHYTHM T WAVE INVERSION LESS EVIDENT IN LATERAL LEADS QT HAS SHORTENED Confirmed by ROSALIND UREÑA, BC ([id number]) on 12/04/2019 11:56:37 AM Referred By: Confirmed By:BC BOYER MD
== END 2019-12-03 22:32 | disposition home or self-care (01) ==
LOC: JER 16:40 → SUPCPDRO 16:40 → JER 22:32
PROC: 3E0337Z Introduction of Electrolytic and Water Balance Substance into Peripheral Vein, Percutaneous Approach (ICD-10-PCS; principal; 2019-12-03)
DX: R10.13 Epigastric pain (principal); Z88.0 Allergy status to penicillin; Z88.8 Allergy status to other drugs, medicaments and biological substances
CPT/HCPCS: 36415; 74177-TC; 80053; 81003; 83690; 85025; 85610; 87086; 93005; 93010; 99283-25; J7030; Q9967